=== PATIENT | female | born 1990 | race Caucasian/White ===

== ENCOUNTER → 2017-12-08 15:55 | Outpatient (CLI) | payer BC, SELFPAY ==
[2017-12-08 19:04] LABS: Chlamydia Trachomatis by PCR Negative (Negative); Neisserai gonorrhoeae by PCR Negative (Negative); Probe Check PASS; Sample Adequacy Control PASS; Specimen Processing Control PASS
[2017-12-14 09:27] LABS: HPV Reflexed? NOT INDICATED
== END ==
PROVIDERS: Visit Provider Obstetrics & Gynecology
DX: Z12.4 Encounter for screening for malignant neoplasm of cervix (principal); Z11.3 Encounter for screening for infections with a predominantly sexual mode of transmission
CPT/HCPCS: 86850; 86900; 87491; 87591; 88175; G0145

== ENCOUNTER → 2017-12-21 15:05 | Outpatient (CLI) | payer BC, SELFPAY ==
--- NOTE | 2017-12-21 15:05 | DT_ITS ---
This patient was seen during an EMR downtime December 18, 2017 - December 25, 2017. This patient may have a combination of paper and electronic documentation or all paper documentation. All documentation is viewable within the e-chart portion of [facility] for each patient visit.
[2017-12-24 13:31] LABS: Prenatal RPR NONREACTIVE (NONREACTIVE)
[2017-12-25 11:37] LABS: HIV - WCH Non-Reactive (Nonreactive); Rubella IgG 7.5 IU/mL
[2017-12-26 04:10] LABS: Hematocrit 35.3 % (37-47); Hemoglobin 11.7 g/dl (12.0-15.0); Mean Corp Hgb Conc 33.1 g/gl (32-36); Mean Corpuscular Hgb 30.6 pg (27.0-32.0); Mean Corpuscular Volume 92.4 fL (81-99); Red Blood Count 3.82 M/mm3 (4.2-5.4)
[2017-12-26 04:11] LABS: Mean Platelet Vol. 10.5 fl (6.2-12.0); POSITIVE COUNT NO; POSITIVE DIFFERENTIAL NO; POSITIVE MORPHOLOGY NO; Platelet Count 229 K/mm3 (150-450); RBC Distribution Width SD 44.3 fl (35.1-43.9)
[2017-12-26 04:14] LABS: White Blood Count 8.6 K/mm3 (4.4-11.0)
[2017-12-26 04:22] LABS: Color, Urine Yellow (Yellow); Glucose, Dipstick Normal (Normal); Urine Clarity Clear (Clear)
[2017-12-26 04:23] LABS: Ketone-Dipstick Negative (Negative); Leukocyte Esterase-Dipstick 500 /ul (Negative); Nitrite-Dipstick Negative (Negative); Occult Blood-Urine Negative /ul (Negative); Protein-Dipstick Negative (Negative); Urine Bilirubin Dipstick Negative (Negative); Urine Urobilinogen Normal (Normal)
[2017-12-26 05:56] LABS: Thyroid Stim Hormone (TSH) 1.45 uIU/mL (0.358-3.74)
[2017-12-26 06:28] LABS: Amphetamine Urine VISTA NEGATIVE (<1000 ng/mL); Barbiturate Urine VISTA NEGATIVE (< 200 ng/mL); Benzodiazepine Urine VISTA NEGATIVE (< 200 ng/mL); COTININE Drug Screen Negative (<200 ng/mL); Cocaine Urine VISTA NEGATIVE (< 300 ng/mL); Ecstacy Urine VISTA NEGATIVE (< 500 ng/mL); Methadone Urine VISTA NEGATIVE (< 300 ng/mL); PCP Urine VISTA NEGATIVE (< 25 ng/mL); THC Urine VISTA NEGATIVE (< 50 ng/mL)
[2017-12-30 14:20] LABS: HEPATITIS B SURFACE AG Negative (Negative); Hep C Antibodies <0.1 s/co ratio (0.0-0.9)
== END ==
PROVIDERS: Visit Provider Obstetrics & Gynecology
DX: Z34.81 Encounter for supervision of other normal pregnancy, first trimester (principal)
CPT/HCPCS: 36415; 80307; 81002; 84443; 85025; 86703; 86762; 86803; 87340

== ENCOUNTER → 2018-05-01 13:53 | Outpatient (CLI) | payer BC, SELFPAY ==
[2018-05-01 15:39] LABS: Glucose Challenge Gest 1H 50g 110 mg/dL (70-140)
[2018-05-01 15:49] LABS: Hematocrit 28.7 % (37-47); Hemoglobin 9.3 g/dl (12.0-15.0); Mean Corp Hgb Conc 32.4 g/gl (32-36); Mean Corpuscular Hgb 30.6 pg (27.0-32.0); Mean Corpuscular Volume 94.4 fL (81-99); Mean Platelet Vol. 9.9 fl (6.2-12.0); Platelet Count 243 K/mm3 (150-450); RBC Distribution Width CV 12.5 % (11.6-14.6); RBC Distribution Width SD 41.2 fl (35.1-43.9); Red Blood Count 3.04 M/mm3 (4.2-5.4); Scan Indicated on CBC? Y/N NO; White Blood Count 9.2 K/mm3 (4.4-11.0)
== END ==
PROVIDERS: Visit Provider Obstetrics & Gynecology
DX: O30.042 Twin pregnancy, dichorionic/diamniotic, second trimester (principal); Z3A.00 Weeks of gestation of pregnancy not specified
CPT/HCPCS: 36415; 82950; 85027

== ENCOUNTER 2018-05-15 13:13 | Emergency (ER) | payer BC, SELFPAY ==
[2018-05-15 13:22] VITALS: BP 106/64; PULSE 107; RESP 16; TEMP 36; O2SAT 96; BMI 31.7
[2018-05-15] MEDS: Ondansetron 4 MG/2 ML Vial IV (13:58)
[2018-05-15] MEDS: 0.9% Normal Saline 1,000 ML 1000 ML IV (13:58)
[2018-05-15 14:19] LABS: Mucous, Urine 0 SEEN /hpf (<or=2+); Red Blood Cells-Urine 0 SEEN /hpf (0-5)
[2018-05-15 14:27] LABS: Color, Urine Yellow (Yellow); Glucose, Dipstick Normal (Normal); Ketone-Dipstick 50 mg/dl (Negative); Leukocyte Esterase-Dipstick 500 /ul (Negative); Nitrite-Dipstick Negative (Negative); Occult Blood-Urine Negative /ul (Negative); Protein-Dipstick 15 mg/dl (Negative); Specific Gravity, Urine 1.015 (1.002-1.030); Urine Bilirubin Dipstick Negative (Negative); Urine Clarity Sl. Cloudy (Clear); Urine Urobilinogen 1 mg/dl (Normal)
[2018-05-15 14:35] LABS: Bacteria 1+ /hpf (None Seen); Squamous Epithelial Cells - UA 0-5 SEEN /hpf (5-10); White Blood Cells 25-50 SEEN /hpf (0-5)
[2018-05-15] MEDS: Ceftriaxone 1 GM/50 ML BAG IV (15:24)
--- NOTE | 2018-05-15 16:04 | ED.VISSUMM ---
- ER Visit Summary Date of Service: 05/15/18 Chief Complaint: Nausea and vomiting History of Present Illness: The patient is a 28 F who is 29 weeks gestation first sent to the ER for nausea and vomiting started yesterday. She is vomited 5 times. Any attempt at eating or drinking anything results in emesis. She does complain of thirst and dry mouth. She denies orthostatic symptoms. She states she is still urinating. She denies dysuria, frequency, urgency or hematuria. She denies fever, chills or night sweats. She states she has not had problems with hyperemesis during the . She denies vaginal discharge or vaginal bleeding. Physical Examination: Vital signs noted and remarkable for heart rate of 107. HEENT exam is remarkable dry mucosa. Heart is rapid and regular without murmur, gallop or rub. Lungs are clear to auscultation with good movement of air bilaterally. Abdomen is remarkable for gravid uterus with positive heart tone and movement. There is no CVA tenderness noted. The remainder of exam is unremarkable. Test Results: UA is remarkable for pyuria with bacteria. Urine culture was sent. Urine was also positive for ketones. Emergency Department Course and Treatment: IV was established she received 1 L of normal saline wide open and 4 mg of Zofran. She has passed p.o. challenge. Urine culture was sent and she received 1 g of Rocephin. She was discharged with cephalexin 500 mg to treat her cystitis. Her sifter operator/beck tender Dr. Agustin Cole was paged to inform him of patient's urine results and need to follow-up urine culture. Treatment Plan: Treat cystitis and hyperemesis with cephalexin and Zofran ODT Disposition: Discharged to home in stable and improved condition Impression: 1. Hyperemesis gravidarum 2. Ketosis 3. Cystitis This note was generated with [employer] dictation software. It may contain incorrect words, spelling, and punctuation that were not noted in review of the chart prior to signing ED Disposition - Plan for ED Patient: Disposition: Home or Assisted Living Chief Complaint: Nausea/Vomiting Instructions: Severe Morning Sickness (Hyperemesis Gravidarum), ED UTI Cystitis Female Prescriptions: Ondansetron [Zofran Odt] 4 mg PO Q8H PRN PRN #10 tab PRN Reason: Nausea Cephalexin 500 mg PO 4X/DAY #28 cap Referrals: Care Physician,No Primary [Primary Care Provider] - Agustin Cole MD [STAFF PHYSICIAN] - 3-5 Days
[2018-05-15 16:09] VITALS: BP 114/64; PULSE 74; RESP 16; O2SAT 98
--- NOTE | 2018-05-15 16:09 | ED.DCSUM_ITS ---
- ER Visit Summary Date of Service: 05/15/18 Chief Complaint: Nausea and vomiting History of Present Illness: The patient is a 28 F who is 29 weeks gestation first sent to the ER for nausea and vomiting started yesterday. She is vomited 5 times. Any attempt at eating or drinking anything results in emesis. She does complain of thirst and dry mouth. She denies orthostatic symptoms. She states she is still urinating. She denies dysuria, frequency, urgency or hematuria. She denies fever, chills or night sweats. She states she has not had problems with hyperemesis during the . She denies vaginal discharge or vaginal bleeding. Physical Examination: Vital signs noted and remarkable for heart rate of 107. HEENT exam is remarkable dry mucosa. Heart is rapid and regular without murmur, gallop or rub. Lungs are clear to auscultation with good movement of air bilaterally. Abdomen is remarkable for gravid uterus with positive heart tone and movement. There is no CVA tenderness noted. The remainder of exam is unremarkable. Test Results: UA is remarkable for pyuria with bacteria. Urine culture was sent. Urine was also positive for ketones. Emergency Department Course and Treatment: IV was established she received 1 L of normal saline wide open and 4 mg of Zofran. She has passed p.o. challenge. Urine culture was sent and she received 1 g of Rocephin. She was discharged with cephalexin 500 mg to treat her cystitis. Her auto haulaway driver/word processor Dr. Agustin Cole was paged to inform him of patient's urine results and need to follow-up urine culture. Treatment Plan: Treat cystitis and hyperemesis with cephalexin and Zofran ODT Disposition: Discharged to home in stable and improved condition Impression: 1. Hyperemesis gravidarum 2. Ketosis 3. Cystitis This note was generated with [employer] dictation software. It may contain incorrect words, spelling, and punctuation that were not noted in review of the chart prior to signing ED Disposition - Plan for ED Patient: Disposition: Home or Assisted Living Chief Complaint: Nausea/Vomiting Instructions: Severe Morning Sickness (Hyperemesis Gravidarum), ED UTI Cystitis Female Prescriptions: Ondansetron [Zofran Odt] 4 mg PO Q8H PRN PRN #10 tab PRN Reason: Nausea Cephalexin 500 mg PO 4X/DAY #28 cap Referrals: Care Physician,No Primary [Primary Care Provider] - Agustin Cole MD [STAFF PHYSICIAN] - 3-5 Days
[2018-05-15 16:15] VITALS: BP 112/64; PULSE 74; RESP 16; O2SAT 98
== END 2018-05-15 16:17 | disposition home or self-care (01) ==
PROVIDERS: Emergency Provider Emergency Medicine
DX: O21.1 Hyperemesis gravidarum with metabolic disturbance (principal); O23.13 Infections of bladder in pregnancy, third trimester; Z3A.29 29 weeks gestation of pregnancy
CPT/HCPCS: 81001; 87086; 87088; 96361; 96365; 96374; 99283; J7030; A4216; J2405

== ENCOUNTER 2018-06-06 09:00 | Outpatient (CLI) | payer BC, SELFPAY ==
[2018-06-06 09:47] VITALS: BMI 32.3
--- NOTE | 2018-06-06 17:48 | OB.TRI.NOTE ---
History of Present Illness Date of Service: 06/06/18 Was patient seen by the physician?: Yes Reason For Visit: NST Date of Service: 06/06/18 Final CHEN: 07/30/18 Final CHEN Source: US <20 weeks Gestational age: 32 Weeks and 2 Days History of Present Illness: Twins for scheduled NST for well being Allergies No Known Allergies Allergy (Verified 05/15/18 13:23) Physical Exam General: Alert, Oriented x3, Cooperative, No apparent distress Cardiovascular: Regular rate, Regular Rhythm Lungs: Clear to auscultation, Normal air movement Abdomen: Soft, Non Tender, Non-Distended, Gravid, Appropriate for Gestational Age Extremities:: No edema Neurological: Neuro grossly intact REGIONAL ACCOUNT DIRECTOR: Normal external genitalia Estimated gestational size: Appropriate for gestational size Presentation: Cephalic NST - FHR Rate Baby A Baseline: 120 Variability:: Moderate Accelerations:: 15 x 15 Decelerations:: None NST Reactive:: Yes, Appropriate for gestational age FHR Category:: Category I Uterine Activity:: irregular - FHR Rate Baby B Baseline: 120 Variability:: Moderate Accelerations:: 15 x 15 Decelerations:: None NST Reactive:: Yes, Appropriate for gestational age FHR Category:: Category I Impression/Plan Reassuring twin NST.
--- NOTE | 2018-06-06 17:51 | OB.TRI.HP_ITS ---
History of Present Illness Date of Service: 06/06/18 Was patient seen by the physician?: Yes Reason For Visit: NST Date of Service: 06/06/18 Final CHEN: 07/30/18 Final CHEN Source: US <20 weeks Gestational age: 32 Weeks and 2 Days History of Present Illness: Twins for scheduled NST for well being Allergies No Known Allergies Allergy (Verified 05/15/18 13:23) Physical Exam General: Alert, Oriented x3, Cooperative, No apparent distress Cardiovascular: Regular rate, Regular Rhythm Lungs: Clear to auscultation, Normal air movement Abdomen: Soft, Non Tender, Non-Distended, Gravid, Appropriate for Gestational Age Extremities:: No edema Neurological: Neuro grossly intact SUPERVISOR WATER SOFTENER SERVICE: Normal external genitalia Estimated gestational size: Appropriate for gestational size Presentation: Cephalic NST - FHR Rate Baby A Baseline: 120 Variability:: Moderate Accelerations:: 15 x 15 Decelerations:: None NST Reactive:: Yes, Appropriate for gestational age FHR Category:: Category I Uterine Activity:: irregular - FHR Rate Baby B Baseline: 120 Variability:: Moderate Accelerations:: 15 x 15 Decelerations:: None NST Reactive:: Yes, Appropriate for gestational age FHR Category:: Category I Impression/Plan Reassuring twin NST.
== END 2018-06-06 10:20 | disposition home or self-care (01) ==
LOC: WPOUT 09:02 → WP 09:03
PROVIDERS: Referring Provider Obstetrics & Gynecology; Visit Provider Obstetrics & Gynecology
DX: O30.003 Twin pregnancy, unspecified number of placenta and unspecified number of amniotic sacs, third trimester (principal); Z3A.32 32 weeks gestation of pregnancy
CPT/HCPCS: 59025; 59050; 99218; G0378

== ENCOUNTER 2018-06-09 10:00 | Outpatient (CLI) | payer BC, SELFPAY ==
[2018-06-09 10:28] VITALS: BMI 32.5
--- NOTE | 2018-06-09 14:26 | OB.TRI.NOTE ---
History of Present Illness Date of Service: 06/09/18 Was patient seen by the physician?: No Reason For Visit: NST Date of Service: 06/09/18 Final CHEN: 07/30/18 Final CHEN Source: US <20 weeks Gestational age: 32 Weeks and 5 Days History of Present Illness: Twin gestation uncomplicated. Appt for scheduled NST Allergies No Known Allergies Allergy (Verified 05/15/18 13:23) Physical Exam General: Alert, Oriented x3, Cooperative, No apparent distress Cardiovascular: Regular rate, Regular Rhythm Lungs: Clear to auscultation, Normal air movement Abdomen: Soft, Non Tender, Non-Distended, Gravid, - - LGA/twins Extremities:: No edema Estimated gestational size: Large for gestational age - twin gestation NST - FHR Rate Baby A Baseline: 130s Variability:: Moderate Accelerations:: 15 x 15 Decelerations:: None NST Reactive:: Yes, Appropriate for gestational age FHR Category:: Category I Uterine Activity:: none - FHR Rate Baby B Baseline: 130s Variability:: Moderate Accelerations:: 15 x 15 Decelerations:: None NST Reactive:: Yes, Appropriate for gestational age FHR Category:: Category I Uterine Activity:: none Impression/Plan Reassuring twin NST at 32w5d ega.
== END 2018-06-09 11:05 | disposition home or self-care (01) ==
LOC: WPOUT 10:02 → WP 10:03
PROVIDERS: Referring Provider Obstetrics & Gynecology; Visit Provider Obstetrics & Gynecology
DX: O30.003 Twin pregnancy, unspecified number of placenta and unspecified number of amniotic sacs, third trimester (principal); O36.63X0 Maternal care for excessive fetal growth, third trimester, not applicable or unspecified; Z3A.32 32 weeks gestation of pregnancy
CPT/HCPCS: 59025; 59050; 99218; G0378

== ENCOUNTER 2018-06-13 17:20 | Outpatient (CLI) | payer BC, SELFPAY ==
[2018-06-13 17:47] VITALS: BMI 33.7
--- NOTE | 2018-06-14 07:22 | OB.TRI.NOTE ---
History of Present Illness Date of Service: 06/13/18 Was patient seen by the physician?: No Reason For Visit: NST Date of Service: 06/13/18 Final CHEN: 07/30/18 Final CHEN Source: US <20 weeks Gestational age: 33 Weeks and 3 Days History of Present Illness: Uncomplicated twin for scheduled NST Allergies No Known Allergies Allergy (Verified 05/15/18 13:23) Physical Exam General: Alert, Oriented x3, Cooperative, No apparent distress Cardiovascular: Regular rate, Regular Rhythm Lungs: Clear to auscultation, Normal air movement Abdomen: Soft, Non Tender, Non-Distended, Gravid, - - LGA secondary to twin gestation Extremities:: No edema Neurological: Neuro grossly intact Estimated gestational size: Large for gestational age Presentation: Unable to assess NST - FHR Rate Baby A Baseline: 130s Variability:: Moderate Accelerations:: 15 x 15 Decelerations:: None NST Reactive:: Yes, Appropriate for gestational age FHR Category:: Category I Uterine Activity:: rare - FHR Rate Baby B Baseline: 140s Variability:: Moderate Accelerations:: 15 x 15 Decelerations:: None, Early NST Reactive:: Yes, Appropriate for gestational age FHR Category:: Category I Uterine Activity:: rare Impression/Plan Reassuring twin NST at 33 weeks.
--- OUTSIDE RECORDS SUMMARY | 2018-08-09 03:18 | XMS RPT_ITS ---
:1990 Author Organization OHIP Support Name Relationship Address Phone JULIO C GALVEZ Unavailable [address] + [place] [address] [facility] Unavailable [address] + [place] [address] [facility] Unavailable [address] + [place] [address] [facility] Unavailable [address] + [place] [address] [facility] Unavailable [address] + [place] [address] [facility] Unavailable [address] + [place] [address] [facility] Unavailable [address] + [place] [address] [facility] Unavailable [address] + [place] [address] [facility] Unavailable [address] + [place] [address] [facility] Unavailable [address] + [place] [address] [facility] Unavailable [address] + [place] [address] [facility] Unavailable [address] + [place] [address] [facility] Unavailable [address] + [place] [address] [facility] Unavailable [address] + [place] [address] [facility] Unavailable [address] + [place] [address] [facility] Unavailable [address] + [place] [address] [facility] Unavailable [address] + [place] [address] [facility] Unavailable [address] + [place] [address] JULIO C GALVEZ Unavailable [address] + [place] [address] [facility] Unavailable [facility] + [place] [id number] [place]. [place] Care Team Providers Name Role Phone Kenroy Yo Sanchez Attending Unavailable Seals, Agustin Attending Unavailable Seals, Agustin Referring Unavailable Primay Care Physicia, No Primary Care Unavailable Seals, Agustin Attending Unavailable Seals, Agustin Referring Unavailable Primay Care Physicia, No Primary Care Unavailable Seals, Agustin Attending Unavailable Seals, Agustin Attending Unavailable Seals, Agustin Attending Unavailable Denney, Oyshi Attending Unavailable Primay Care Physicia, No Primary Care Unavailable Seals, Agustin Attending Unavailable Seals, Agustin Referring Unavailable Primay Care Physicia, No Primary Care Unavailable Seals, Agustin Attending Unavailable Seals, Agustin Referring Unavailable Primay Care Physicia, No Primary Care Unavailable Seals, Agustin Attending Unavailable Seals, Agustin Referring Unavailable Primay Care Physicia, No Primary Care Unavailable Benekos, Tran Attending Unavailable Benekos, Tran Referring Unavailable Primay Care Physicia, No Primary Care Unavailable Seals, Agustin Attending Unavailable Seals, Agustin Referring Unavailable Primay Care Physicia, No Primary Care Unavailable Seals, Agustin Attending Unavailable Primay Care Physicia, No Primary Care Unavailable Weeman, Allan Attending Unavailable Weeman, Allan Referring Unavailable Primay Care Physicia, No Primary Care Unavailable PROBLEMS PROBLEMS DATE TYPE CONDITION / CODE ATTENDING STATUS SOURCE 06/20/2018 Unknown Z36.85 - Encounter SealAgusitn dumas Active [place] [facility] screening for [facility] Streptococcus B / Repository Z36.85(ICD-10) 07/02/2018 Unknown O30.003 - Twin Sealpiter, Agustin Active [place] , Community unspecified number Hospital of placenta and Repository unspecified number of amniotic sacs, third trimester / O30.003(ICD-10) 05/01/2018 Unknown O30.042 - Twin Seals, Agustin Active [facility] , Community dichorionic/diamnio Hospital tic, second Repository trimester / O30.042(ICD-10) 12/08/2017 Unknown Z12.4 - Encounter Seals, Agustin Active [place] [facility] malignant neoplasm Hospital of cervix / Repository Z12.4(ICD-10) 12/08/2017 Unknown Z11.3 - Encounter Agustin Cole Active [facility] for Community infections with a Hospital predominantly Repository sexual mode of transmission / Z11.3(ICD-10) PROCEDURES PROCEDURES No Procedure Records FoundRESULTS RESULTS Observed: 06/20/2018 Status: F Source: [facility] CULTURE, GROUP B 3:30 PM [facility] STREPTOCOCCUS REPOSITORY Comments: VAGINAL/RECTAL CAROL Culture Group B Beta Streptococcus is not isolated. Performed By: #### M100.1800 #### [facility] [address] [facility] [place], [address] EMERGENCY DEPARTMENT Observed: 05/15/2018 Status: F Source: [facility] SUMMARY 4:09 PM [facility] REPOSITORY [facility] Medical Records Department [address] [facility] [place] [address] Emergency Department Summary 05/15/18 1604 MR#: [id number] Acct: [id number] Name: KEYON GALVEZ Rep #: [id number] : 1990 28 From: Yoshi Denney MD PCP: Care Physician, No Primary Status: REG ER - ER Visit Summary Date of Service: 05/15/18 Chief Complaint: Nausea and vomiting History of Present Illness: The patient is a 28 F who is 29 weeks gestation first sent to the ER for nausea and vomiting started yesterday. She is vomited 5 times. Any attempt at eating or drinking anything results in emesis. She does complain of thirst and dry mouth. She denies orthostatic symptoms. She states she is still urinating. She denies dysuria, frequency, urgency or hematuria. She denies fever, chills or night sweats. She states she has not had problems with hyperemesis during the . She denies vaginal discharge or vaginal bleeding. Physical Examination: Vital signs noted and remarkable for heart rate of 107. HEENT exam is remarkable dry mucosa. Heart is rapid and regular without murmur, gallop or rub. Lungs are clear to auscultation with good movement of air bilaterally. Abdomen is remarkable for gravid uterus with positive heart tone and movement. There is no CVA tenderness noted. The remainder of exam is unremarkable. Test Results: UA is remarkable for pyuria with bacteria. Urine culture was sent. Urine was also positive for ketones. Emergency Department Course and Treatment: IV was established she received 1 L of normal saline wide open and 4 mg of Zofran. She has passed p.o. challenge. Urine culture was sent and she received 1 g of Rocephin. She was discharged with cephalexin 500 mg to treat her cystitis. Her rescue boat operator/energy audit advisor Dr. Agustin Cole was paged to inform him of patient's urine results and need to follow-up urine culture. Treatment Plan: Treat cystitis and hyperemesis with cephalexin and Zofran ODT Disposition: Discharged to home in stable and improved condition Impression: 1. Hyperemesis gravidarum 2. Ketosis 3. Cystitis This note was generated with [employer] dictation software. It may contain incorrect words, spelling, and punctuation that were not noted in review of the chart prior to signing ED Disposition - Plan for ED Patient: Disposition: Home or Assisted Living Chief Complaint: Nausea/Vomiting Instructions: Severe Morning Sickness (Hyperemesis Gravidarum), ED UTI Cystitis Female Prescriptions: Ondansetron [Zofran Odt] 4 mg PO Q8H PRN PRN #10 tab PRN Reason: Nausea Cephalexin 500 mg PO 4X/DAY #28 cap Referrals: Care Physician,No Primary [Primary Care Provider] - Agustin Cole MD [STAFF PHYSICIAN] - 3-5 Days What to do if you have Problems For any increased pain, shortness of breath, bleeding, nausea or vomiting, chest pain, or any unexpected problems, contact your Primary Care Provider. Call [facility] ([phone]) or report to the closest Emergency Room. Call 911 if necessary. 05/15/18 5536 <Electronically signed by Yoshi Denney MD> Date Yoshi Denney MD Cosigner Signature (If Indicated): Date CC: No Primary Care Physician; Agustin Cole MD URINALYSIS, COMPLETE Collected: 05/15/2018 Status: F Source: [facility] 2:10 PM [facility] REPOSITORY Order Comment: Order Date: 05/15/18 How was Urine Obtained? CLEAN CATCH TYPE CODE TESTS RESULT OUT OF RANGE REFERENCE UNITS LAB L400.3000 Yellow COLOR Normal Yellow LAB L400.3050 Clear Normal CLARITY Sl. Cloudy LAB L400.3200 Normal mg/dl Normal GLUCOSE, UR Normal LAB L400.3300 Negative mg/dL Normal BILIRUBIN URINE Negative LAB L400.3400 Negative mg/dl High 50 KETONE UR LAB L400.3465 1.002-1.030 Normal SP.GR. DIPSTX 1.015 LAB L400.3550 5.0 - 8.0 pH UR Normal 6.0 LAB L400.3600 Negative mg/dl High PROT 15 DIPSTX LAB L400.3700 Normal mg/dl High 1 UROBILI LAB L400.3750 Negative Normal NITRITE UR Negative LAB L400.3780 Negative /ul Normal OCCULT BLOOD-UR Negative LAB L400.3800 Negative /ul High LEUK ESTERASE 500 LAB L400.4050 0-5 /hpf WBC Normal 25-50 SEEN LAB L400.4100 0-5 /hpf 0 Normal RBC-UA SEEN LAB L400.4150 5-10 /hpf SQUAM Normal EPI 0-5 SEEN LAB L400.4300 None Seen /hpf 1+ Normal BACTERIA LAB L400.4350 <or=2+ /hpf 0 Normal MUCUS, URINE SEEN Performed By: #### L400.0001 #### [facility] [address] [facility] [place], [place], [address] Observed: 05/15/2018 Status: F Source: [facility] CULTURE, URINE 2:10 PM [facility] REPOSITORY Urine Culture Below infection level. ORGANISM 1: Mixed Gram Positive Organisms [place] Count 1000-10,000 Performed By: #### M100.0650 #### [facility] [address] [facility] [place], [address] GLUCOSE CHALLENGE GEST Collected: 05/01/2018 Status: F Source: [facility] 1H 50G 2:03 PM [facility] REPOSITORY TYPE CODE TESTS RESULT OUT OF RANGE REFERENCE UNITS LAB L501.0250 70-140 mg/dL Normal GLU GEST 110 50g 1H Performed By: #### L501.0250 #### [facility] [address] [place], [address] CBC-COMPLETE BLOOD CNT Collected: 05/01/2018 Status: F Source: [facility] NO DIFF 2:03 PM [facility] REPOSITORY TYPE CODE TESTS RESULT OUT OF RANGE REFERENCE UNITS LAB L100.1000 4.4-11.0 K/mm3 Normal WBC 9.2 LAB L100.1200 4.2-5.4 M/mm3 Low RBC 3.04 LAB L100.1300 12.0-15.0 g/dl Low HGB 9.3 LAB L100.1400 37-47 % Low HCT 28.7 LAB L100.1500 81-99 fL Normal MCV 94.4 LAB L100.1600 27.0-32.0 pg Normal MCH 30.6 LAB L100.1700 32-36 g/gl Normal MCHC 32.4 LAB L100.1810 11.6-14.6 % Normal RDW CV 12.5 LAB L100.1820 35.1-43.9 fl Normal RDW SD 41.2 LAB L100.1900 150-450 K/mm3 Normal PLT 243 LAB L100.2000 6.2-12.0 fl Normal MPV 9.9 Performed By: #### L100.0500 #### [facility] [address] [place], [address] DOWNTIME REPORT Observed: 01/04/2018 Status: F Source: [place] 2:01 PM [facility] REPOSITORY [facility] Medical Records Department [address] [place] [address] Downtime Report MR#: [id number] Acct: [id number] Name: KEYON GALVEZ Rep #: [id number] : 1990 27 From: Hung Barclay PCP: Status: REG CLI This patient was seen during an EMR downtime December 18, 2017 - December 25, 2017. This patient may have a combination of paper and electronic documentation or all paper documentation. All documentation is viewable within the e-chart portion of [employer] for each patient visit. T AND S-NO Collected: 12/21/2017 Status: F Source: [facility] CHARGE W/PNP 3:05 PM [facility] REPOSITORY Order Comment: RESULT(S) PREVIOUSLY REPORTED ON MANUAL REQUISITION DURING DOWNTIME. Reason for Type AND Screen/Red Cells: Surgery? N TYPE CODE TESTS RESULT OUT OF RANGE REFERENCE UNITS LAB B10.0800 O Normal BLOOD POSITIVE TYPE GEL LAB B100.4050 Normal Ab SCREEN NEGATIVE GEL Performed By: #### B100.7550 #### [facility] [address] [facility] [place], [place], [address] URINE DRUG SCREEN Collected: 12/21/2017 Status: P Source: SHREE (VISTA) 3:05 PM [facility] REPOSITORY Order Comment: List of Drugs Taken or Suspected? UNK TYPE CODE TESTS RESULT OUT OF RANGE REFERENCE UNITS LAB L505.0075 TO BE Normal CONFIRMED Result Comment: CONFIRMATORY TESTING FOR ALL POSITIVE URINE DRUG SCREEN RESULTS WILL ONLY BE SENT OUT UPON PHYSICIAN ORDER. VISTA Urine Drug Screen methods provide only preliminary analytical test results. A more specific alternate chemical method must be used in order to obtain a confirmed analytical result. Gas chromatography/mass spectrometery (GC/MS) is the preferred confirmatory method. Clinical consideration and professional judgement should be applied to any drug of abuse test result, particularly when preliminary positive results are used. URINE TCA TESTING MUST BE ORDERED SEPARATELY. USE TEST MNEMONIC: UTCA Performed By: #### L505.5000, L505.6240 #### [facility] [address] [facility] [place], [place], [address] NICOTINE URINE DRUG Collected: 12/21/2017 Status: P Source: [facility] SCREEN 3:05 PM [facility] REPOSITORY Order Comment: List of Drugs Taken or Suspected? UNK TYPE CODE TESTS RESULT OUT OF RANGE REFERENCE UNITS LAB L505.6250 TO BE Normal CONFIRMED Result Comment: CONFIRMATORY TESTING FOR ALL POSITIVE URINE DRUG SCREEN RESULTS WILL ONLY BE SENT OUT UPON PHYSICIAN ORDER. The results of Urine Drug Screen methods provide only preliminary analytical test results. A more specific alternate chemical method must be used in order to obtain a confirmed analytical result. Gas chromatography/mass spectrometery (GC/MS) is the preferred confirmatory method. Clinical consideration and professional judgement should be applied to any drug of abuse test result, particularly when preliminary positive results are used. LAB L505.6270 <200 ng/mL Normal COT DRG SCREEN Result Comment: Cotinine is the first-stage metabolite of Nicotine. Performed By: #### L505.5000, L505.6240 #### [facility] [address] [facility] [place], [place], [id number] RPR Collected: 12/21/2017 Status: F Source: [place] 3:05 PM [facility] REPOSITORY TYPE CODE TESTS RESULT OUT OF REFERENCE UNITS RANGE LAB L700.5100 NONREACTIVE Normal RPR NONREACTIVE Performed By: #### L700.5100 #### [facility] [facility] [address] [place], [address] RUBELLA IGG Collected: 12/21/2017 Status: F Source: [place] 3:05 PM [facility] REPOSITORY TYPE CODE TESTS RESULT OUT OF RANGE REFERENCE UNITS LAB L509.4000 IU/mL Normal Rubella IgG 7.5 Result Comment: Antibody results Interpretation of Immune Status < 5 IU/ml Presumed Non-immune 5 - < 10 IU/ml Equivocal > or = 10 IU/ml Presumed Immune Performed By: #### L509.4000, L3890.6005 #### [facility] [facility] [place], [address] HIV - [facility] Collected: 12/21/2017 Status: F Source: [place] 3:05 [facility] REPOSITORY TYPE CODE TESTS RESULT OUT OF RANGE REFERENCE UNITS LAB L3890.6005 Nonreactive Normal HIV - [facility] Non-Reactive Performed By: #### L509.4000, L3890.6005 #### [facility] [facility] [place], [address] CBC W/DIFF, AUTOMATED Collected: 12/21/2017 Status: F Source: [place] 3:05 PM [facility] REPOSITORY TYPE CODE TESTS RESULT OUT OF RANGE REFERENCE UNITS LAB L100.1000 4.4-11.0 K/mm3 Normal WBC 8.6 Result Comment: RESULT(S) PREVIOUSLY REPORTED ON MANUAL REQUISITION DURING DOWNTIME. 0415 RESULTING TECH MAF LAB L100.1200 4.2-5.4 M/mm3 Low RBC 3.82 LAB L100.1300 12.0-15.0 g/dl Low HGB 11.7 LAB L100.1400 37-47 % Low HCT 35.3 LAB L100.1500 81-99 fL Normal MCV 92.4 LAB L100.1600 27.0-32.0 pg Normal MCH 30.6 LAB L100.1700 32-36 g/gl Normal MCHC 33.1 LAB L100.1810 11.6-14.6 % Normal RDW CV 13.0 LAB L100.1820 35.1-43.9 fl High RDW SD 44.3 LAB L100.1900 150-450 K/mm3 Normal PLT 229 LAB L100.2000 6.2-12.0 fl Normal MPV 10.5 LAB L100.2100 47-70 % Normal NEUT% Test not performed LAB L100.2200 19-41 % Normal LY% Test not performed LAB L100.2300 0-10 % Normal MONO% Test not performed LAB L100.2400 0-5 % Normal EO% Test not performed LAB L100.2500 0-1 % Normal BASO% Test not performed LAB L100.2550 0.0-0.9 % IM Normal GRAN % Test not performed LAB L100.2620 2.0-7.7 X10 3/uL Normal Absolute Neut Test not performed LAB L100.2720 0.83-4.51 X10 3/ul Normal Absolute Lymph Test not performed LAB L100.3100 MANUAL DIFF Normal CELLS COUNTED Test not performed LAB L100.3200 47-70 % Normal SEGS Test not performed LAB L100.3300 0-5 % Normal BAND Test not performed LAB L100.3400 0-1 % Normal META Test not performed LAB L100.3500 0-0 Normal MYELO Test not performed LAB L100.3600 0-0 Normal PROMYELO Test not performed LAB L100.3700 0-0 % Normal BLAST Test not performed LAB L100.3800 19-41 % Normal LYMPH Test not performed LAB L100.3900 0-10 % Normal MONOCYTE Test not performed LAB L100.4000 0-5 % Normal EOS Test not performed LAB L100.4100 0-1 % Normal BASOPHIL Test not performed LAB L100.4200 % Normal PLASMA CELL Test not performed LAB L100.4300 % Normal OTHER WBC TYPE Test not performed LAB L100.4400 0-5 % Normal NRBC,MANUAL CT Test not performed LAB L100.4500 Normal SMEAR COMMENT Test not performed LAB L100.4600 % Normal ATYPICAL LYMPH Test not performed LAB L100.4700 Normal REACTIVE LYMPH Test not performed Performed By: #### L100.0100 #### [facility] [address] [facility] [place], [address] URINALYSIS, ROUTINE Collected: 12/21/2017 Status: F Source: [facility] (DIPSTICK) 3:05 PM [facility] REPOSITORY Order Comment: How was Urine Obtained? CLEAN CATCH TYPE CODE TESTS RESULT OUT OF RANGE REFERENCE UNITS LAB L400.3000 Yellow COLOR Normal Yellow LAB L400.3050 Clear Normal CLARITY Clear LAB L400.3200 Normal mg/dl Normal GLUCOSE, UR Normal LAB L400.3300 Negative mg/dL Normal BILIRUBIN URINE Negative LAB L400.3400 Negative mg/dl Normal KETONE UR Negative LAB L400.3465 1.002-1.030 Normal SP.GR. DIPSTX 1.010 LAB L400.3550 5.0 - 8.0 pH UR Normal 7.0 LAB L400.3600 Negative mg/dl PROT Normal DIPSTX Negative LAB L400.3700 Normal mg/dl Normal UROBILI Normal LAB L400.3750 Negative Normal NITRITE UR Negative LAB L400.3780 Negative /ul Normal OCCULT BLOOD-UR Negative LAB L400.3800 Negative /ul High LEUK ESTERASE 500 Performed By: #### L400.2011 #### [facility] [address] [place], [place], [id number] THYROID STIM HORMONE Collected: 12/21/2017 Status: F Source: [facility] (TSH) 3:05 PM [facility] REPOSITORY Order Comment: RESULT(S) PREVIOUSLY REPORTED ON MANUAL REQUISITION DURING DOWNTIME. TYPE CODE TESTS RESULT OUT OF RANGE REFERENCE UNITS LAB L501.9520 0.358-3.74 uIU/mL Normal TSH 1.45 Performed By: #### L501.9520 #### [facility] [place], [place], [address] HEPATITIS B SURFACE Collected: 12/21/2017 Status: F Source: [place] AG 3:05 PM [facility] REPOSITORY Order Comment: Specimen Comment: A duplicate report has been generated due to demographic Specimen Comment: updates. TYPE CODE TESTS RESULT OUT OF RANGE REFERENCE UNITS LAB L3100.0400 Negative Normal HB Negative SURF AG Result Comment: Performed at: [address] [id number] Textile Conversion Manager: Anibal Barrera PhD, Phone: [phone] Performed By: #### L3100.0390, L3100.0625 #### [facility] (refer to report for specific site) refer to report for address and phone number HEPATITIS C ANTIBODIES Collected: 12/21/2017 Status: F Source: [place] 3:05 PM [facility] REPOSITORY Order Comment: Specimen Comment: A duplicate report has been generated due to demographic Specimen Comment: updates. TYPE CODE TESTS RESULT OUT OF RANGE REFERENCE UNITS LAB L3100.0650 0.0-0.9 s/co ratio Normal HEP C AB <0.1 Result Comment: Negative: < 0.8 Indeterminate: 0.8 - 0.9 Positive: > 0.9 The CDC recommends that a positive HCV antibody result be followed up with a HCV Nucleic Acid Amplification test (898752). Performed By: #### L3100.0390, L3100.0625 #### [facility] (refer to report for specific site) refer to report for address and phone number TYPE AND SCREEN Collected: 12/21/2017 Status: F Source: [place] 3:05 PM [facility] REPOSITORY Order Comment: RESULT(S) PREVIOUSLY REPORTED ON MANUAL REQUISITION DURING DOWNTIME. Reason for Type AND Screen/Red Cells: TYPE CODE TESTS RESULT OUT OF RANGE REFERENCE UNITS LAB B10.0800 O Normal BLOOD TYPE GEL POSITIVE LAB B100.4000 Normal Antibody NEGATIVE Screen Performed By: #### B101.7450 #### [facility] [address] [facility] [place], [address] CT/NG [facility] BY PCR Collected: 12/08/2017 Status: F Source: [place] 2:16 PM [facility] REPOSITORY TYPE CODE TESTS RESULT OUT OF RANGE REFERENCE UNITS LAB L8200.2100 Negative Normal Chlam Negative Trac PCR LAB L8200.2200 Negative Normal NG by Negative PCR Performed By: #### L8200.2000 #### [facility] [address] [facility] [place], [address] PAP I-G W/RFX HRHPV Collected: 12/08/2017 Status: F Source: [place] 2:16 PM [facility] REPOSITORY Order Comment: CYTOLOGY INFORMATION: - CLINICAL INFORMATION: - DATE LMP/MENOPAUSE: 10/08/17 LMP - COLLECTION VIAL: Thin Prep Vial - MERCURY RECOVERER SOURCE: CERVICAL/ENDOCERVICAL - COLLECTION TECHNIQUE: BRUSH/SPATULA Specimen Comment: [id number] Specimen Comment: No. of containers..01 ThinPrep Vial TYPE CODE TESTS RESULT OUT OF RANGE REFERENCE UNITS LAB L7400.0800 . Normal DIAGN Comment Result Comment: NEGATIVE FOR INTRAEPITHELIAL LESION AND MALIGNANCY. LAB L7400.0900 . Normal ADEQ Comment Result Comment: Satisfactory for evaluation. Endocervical and/or squamous metaplastic cells (endocervical component) are present. LAB L7400.1400 . Normal PERFORM Comment Result Comment: Kortney Mi, Liability Analyst (ASCP) LAB L7400.2575 . Normal TEST METHOD Comment Result Comment: This liquid based ThinPrep(R) pap test was screened with the use of an image guided system. LAB L7400.2600 . Normal . COMM LAB L7400.2700 . Normal PAPSMR Comment Result Comment: The Pap smear is a screening test designed to aid in the detection of premalignant and malignant conditions of the uterine cervix. It is not a diagnostic procedure and should not be used as the sole means of detecting cervical cancer. Both false-positive and false-negative reports do occur. LAB L7400.2800 . Normal HPV RFLX Comment Result Comment: The HPV DNA reflex criteria were not met with this specimen result therefore, no HPV testing was performed. Performed at: - [facility] [id number] Textile Conversion Manager: Lanette Leach MD, Phone: [phone] Performed By: #### L7400.0350 #### [facility] (refer to report for specific site) refer to report for address and phone number ALLERGIES ALLERGIES DATE TYPE / CODE NAME / CODE REACTION SEVERITY SOURCE 06/23/2018 Drug No Known Unknown [facility] Allergy/4160 Allergies/F00 Hospital [address]59(SNOMED [id number](RXNOR Repository CT) M) ENCOUNTERS ENCOUNTERS ADMIT/DISCHARGE ACCOUNT NUMBER ADMITTING ENCOUNTER LOCATION SOURCE CLASS 06/30/2018/06/30/20 [id number] Ambulatory [address] Hospital ding:[facility] Repository om: WP012 06/27/2018/06/27/20 [id number] Ambulatory [facility] [facility] ding:[facility] Repository om: WP020 06/23/2018/06/23/20 [id number] Ambulatory [facility] [place] Hospital ding:[facility] Repository om: WP015 06/20/2018 [id number] Ambulatory [facility] Hospital ding:[facility] Repository 06/20/2018/06/20/20 [id number] Ambulatory [address] ding:[facility]OU[facility] Repository om: WP012 06/16/2018/06/16/20 [id number] Ambulatory [address] Hospital ding:[facility] Repository om: WP011 06/13/2018/06/13/20 [id number] Ambulatory [address] Hospital ding:[facility] Repository om: WP011 06/09/2018/06/09/20 [id number] Ambulatory [address] Hospital ding:[facility] Repository om: WP012 06/06/2018/06/06/20 [id number] Ambulatory [place] Hospital ding:[facility] Repository om: WP013 05/15/2018/05/15/20 [id number] Emergency [facility] [place] ding:ED Repository 05/01/2018 [id number] Ambulatory [facility] Hospital ding:[facility]BL[facility] Repository 12/21/2017 [id number] Ambulatory [facility] ding:WOBLAB Repository 12/18/2017/12/19/[id number] [facility] Repository 12/08/2017 [id number] Ambulatory [facility] ding:LABSPEC Repository PAYERS PAYERS ENCOUNTER GUARANTOR PAYER SUBSCRIBER SOURCE 06/30/2018 KEYON Stringer Primary KEYON Swann [id number] [place] Insurance:ANTHEMPolic [facility]DOB[facility] [place]: [id number] Hospital 59042Qtq: (523) [id number] Repository [phone] () Date:2523-77-08BF [address] [place] [address] 77284FD: 06/30/2018 Secondary NOT GIVENUNK [place] Insurance:SELF PAY [facility] Number: Effective Repository Date:2018-06-30 06/27/2018 KEYON Stringer Primary KEYON Swann [id number] [place] Insurance:ANTHEMPolic MURRAYDOB: [facility] Number: [id number] Hospital 41247Xkk: (002) [id number] Repository [phone] () Date:9091-79-20JC [address] [place] [address] 49578BQ: 06/27/2018 Secondary NOT GIVENUNK Shree Insurance:SELF PAY [facility] Number: Effective Repository Date:2018-06-27 06/23/2018 KEYON Stringer Primary KEYON Swann [id number] [place] Insurance:ANTHEMPolic MURRAYDOB: [facility] [place] Number: [id number] Hospital 71344Fiy: [id number] Repository [phone] () Date:9277-87-98EP [address] [place] [address] 78869QW: 06/23/2018 Secondary NOT GIVENUNK Shree Insurance:SELF PAY [facility] Number: Effective Repository Date:2018-06-23 06/20/2018 KEYON Stringer Primary KEYON Swann [id number] [place] Insurance:ANTHEMPolic MURRAYDOB: [facility] Number: [id number] Hospital 40432Fcy: ([phone]) [id number] Repository [phone] () Date:5126-18-80UY [address] [place] [address] 64604UD: 06/20/2018 Secondary NOT GIVENUNK [place] Insurance:SELF PAY [facility] Number: Effective Repository Date:2018-06-20 06/20/2018 KEYON Stringer Primary KEYON Stringer [place] [id number] [place] Insurance:ANTHEMPolic MURRAYDOB: [facility] Number: [id number] Hospital 37629Eqa: (600) [id number] Repository [phone] () Date:4277-69-59JJ [id number] [place] [address] 57104OC: 06/20/2018 Secondary NOT GIVENUNK Shree Insurance:SELF PAY [facility] Number: Effective Repository Date:2018-06-20 06/16/2018 KEYON Stringer Primary KEYON Stringer [place] [id number] [place] Insurance:ANTHEMPolic MURRAYDOB: [place]: [id number] [id number]: [phone] [id number] Repository [phone] () Date:0504-39-06VC [address]HPFI, [place] [address]AN: 06/16/2018 Secondary NOT GIVENUNK [place] Insurance:SELF PAY [facility] Number: Effective Repository Date:2018-06-16 06/13/2018 KEYON Stringer Primary KEYON Stringer [place] [id number] [place] Insurance:ANTHEMPolic MURRAYDOB: [place] Number: [id number] [id number]: [phone] [id number] Repository [phone] () Date:8712-43-44XI [id number] [place] [address] 98649YJ: 06/13/2018 Secondary NOT GIVENUNK [place] Insurance:SELF PAY [facility] Number: Effective Repository Date:2018-06-13 06/09/2018 KEYON Stringer Primary KEYON Stringer Shree [id number] [place] Insurance:ANTHEMPolic MURRAYDOB: [place] Number: [id number] [id number]: (643) [id number] Repository [phone] () Date:6383-97-50GH [address]OGJJA [place] [address]EA: 06/09/2018 Secondary NOT GIVENUNK [place] Insurance:SELF PAY [facility] Number: Effective Repository Date:2018-06-09 06/06/2018 KEYON M Primary KEYON M Shree [id number] [place] Insurance:ANTHEMPolic MURRAYDOB: [facility] Number: [id number] Hospital 88127Wol: 937) [id number] Repository [phone] () Date:0558-31-30MO [address]ZX[address] [place] [address]FX: 06/06/2018 Secondary NOT GIVENUNK Shree Insurance:SELF PAY [facility] Number: Effective Repository Date:2018-06-06 05/15/2018 KEYON M Primary KEYON M [place] [id number] [place] Insurance:ANTHEMPolic MURRAYDOB: [facility] Number: [id number] Hospital [address]Ari: 939) [id number] Repository [phone] () Date:0263-52-45ZK [address] [place] [address] 49975UM: 05/15/2018 Secondary NOT GIVENUNK [place] Insurance:SELF PAY [facility] Number: Effective Repository Date:2018-05-15 05/01/2018 KEYON Primary KEYON Shree [id number] [place] Insurance:ANTHEMPolic MURRAYDOB: [facility] Number: [id number] Hospital 405[address]Gkj: . (HP) [id number] Repository Date:3771-27-38LQ [id number] [place] [address]RX: 05/01/2018 Secondary NOT GIVENUNK Shree Insurance:SELF PAY [facility] Number: Effective Repository Date:2018-05-01 12/21/2017 KEYON Primary KEYON [place] [id number] [place] Insurance:ANTHEMPolic MURRAYDOB: [facility] Number: [id number] Hospital 98[address]Xho: . () [id number] Repository Date:2820-46-29WU [address]CEQDMFY, [place] [address]LH: 12/21/2017 Secondary NOT GIVENUNK Shree Insurance:SELF PAY [facility] Number: Effective Repository Date:2017-12-21 12/08/2017 KEYON Primary KEYON [place] [id number] [place] Insurance:ANTHEMPolic MURRAYB: [place] Number: [id number] Hospital 25595Ctk: . () [id number] Repository Date:9675-69-22VC [address]RXJMGQA [place] [address]UX: 12/08/2017 Secondary NOT GIVENUNK [place]ree Insurance:SELF PAY [facility] Number: Effective Repository Date:2017-12-08
== END 2018-06-13 18:20 | disposition home or self-care (01) ==
LOC: WPOUT 17:38 → WP 17:38
PROVIDERS: Referring Provider Obstetrics & Gynecology; Visit Provider Obstetrics & Gynecology
DX: O36.63X0 Maternal care for excessive fetal growth, third trimester, not applicable or unspecified (principal); O30.003 Twin pregnancy, unspecified number of placenta and unspecified number of amniotic sacs, third trimester; Z3A.33 33 weeks gestation of pregnancy
CPT/HCPCS: 59025

== ENCOUNTER 2018-06-16 09:40 | Outpatient (CLI) | payer BC, SELFPAY ==
--- NOTE | 2018-06-17 08:27 | OB.TRI.NOTE ---
History of Present Illness Date of Service: 06/16/18 Was patient seen by the physician?: No Reason For Visit: NST/TWINS Date of Service: 06/16/18 Final CHEN: 07/30/18 Final CHEN Source: US <20 weeks Gestational age: 33 Weeks and 5 Days History of Present Illness: 28 yo twin IUP for scheduled NST. Allergies No Known Allergies Allergy (Verified 06/16/18 11:00) NST - FHR Rate Baby A Baseline: 130-140 intermittent tracing accels to 160s Variability:: Moderate Accelerations:: 15 x 15 Decelerations:: None NST Reactive:: Yes, Appropriate for gestational age Uterine Activity:: no UCs noted. - FHR Rate Baby B Baseline: 130-140 avg accels to 160s Accelerations:: 15 x 15 Decelerations:: None NST Reactive:: Yes, Appropriate for gestational age FHR Category:: Category I Impression/Plan Twin IUP 33w5d Reactive NST Continue NSTs as planned until delivery Keep ofc appt as scheduled for PNV, growth sonos.
--- OUTSIDE RECORDS SUMMARY | 2018-08-10 19:28 | XMS RPT_ITS ---
:1990 Author Organization OHIP Support Name Relationship Address Phone JULIO C GALVEZ Unavailable [address] + [place] [address] [facility] Unavailable [address] + [place] [address] [facility] Unavailable [address] + [place] [address] [employer] Unavailable [address] + [place] [address] [facility] Unavailable [address] + [place] [address] [facility] Unavailable [address] + [place] [address] [facility] Unavailable [address] + [place] [address] [facility] Unavailable [address] + [place] [address] [facility] Unavailable [address] + [place] [address] [facility] Unavailable [address] + [place] [address] [facility] Unavailable [address] + [place] [address] [facility] Unavailable [address] + [place] [address] [facility] Unavailable [address] + [place] [address] [facility] Unavailable [address] + [place] [address] [facility] Unavailable [address] + [place] [address] [facility] Unavailable [address] + [place] [address] [facility] Unavailable [address] + [place] [address] [facility] Unavailable [address] + [place] [address] JULIO C GALVEZ Unavailable [address] + [place] [address] [facility] Unavailable [facility] [address] + [place] [id number] UNK Unavailable / +. [place] [...] Attending Unavailable Seals, Agustin Attending Unavailable Denney, Yoshi Attending Unavailable Primay Care Physicia, No Primary [...] STATUS SOURCE 06/20/2018 Unknown Z36.85 - Encounter SealAgustin dumas Active [place] [facility] screening for [facility] Streptococcus B / Repository Z36.85(ICD-10) 07/02/2018 Unknown O30.003 - Twin Sealpiter, Agustin Active [place] , Community unspecified number Hospital of placenta and Repository unspecified number of amniotic sacs, third trimester / O30.003(ICD-10) 05/01/2018 Unknown O30.042 - Twin Seals, Agustin Active [facility] , Community dichorionic/diamnio Hospital tic, second Repository trimester / O30.042(ICD-10) 12/08/2017 Unknown Z12.4 - Encounter Seals, Agustin Active [place] [facility] malignant neoplasm Hospital of cervix / Repository Z12.4(ICD-10) 12/08/2017 Unknown Z11.3 - Encounter Agustin Cole Active [facility] for Community infections with a Hospital predominantly Repository sexual mode of transmission / Z11.3(ICD-10) PROCEDURES PROCEDURES No Procedure Records FoundRESULTS RESULTS Observed: 06/20/2018 Status: F Source: [facility] CULTURE, GROUP B 3:30 PM [facility] STREPTOCOCCUS REPOSITORY Comments: VAGINAL/RECTAL CAROL Culture Group B Beta Streptococcus is not isolated. Performed By: #### M100.1800 #### [facility] [address] [facility] [place], [address] EMERGENCY DEPARTMENT Observed: 05/15/2018 Status: F Source: [facility] SUMMARY 4:09 PM [facility] REPOSITORY [facility] Medical Records Department [address] [place] [address] Emergency Department Summary 05/15/18 1604 MR#: [id number] Acct: [id number] Name: KEYON GALVEZ Rep #: [id number] : 1990 28 From: Yoshi Denney MD [...] 500 mg to treat her cystitis. 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 Agustin Cole was paged to inform him of patient's urine results and need to follow-up urine culture. Treatment Plan: Treat cystitis and hyperemesis with cephalexin and Zofran ODT Disposition: Discharged to home in stable and improved condition Impression: 1. Hyperemesis gravidarum 2. Ketosis 3. Cystitis This note was generated with [employer] dictation software. It may contain incorrect words, [...] your Primary Care Provider. Call [facility] ([phone]) or report to the closest Emergency Room. Call 911 if necessary. 05/15/18 4482 <Electronically signed by Yoshi Denney MD> Date Yoshi Denney MD Cosigner Signature (If Indicated): Date CC: No Primary Care Physician; Agustin Cole MD URINALYSIS, COMPLETE Collected: 05/15/2018 Status: F Source: SHREE 2:10 PM [facility] REPOSITORY Order Comment: Order Date: 05/15/18 How [...] URINE SEEN Performed By: #### L400.0001 #### [facility] [address] [facility] [place], [place], [address] Observed: 05/15/2018 Status: F Source: [facility] CULTURE, URINE 2:10 PM [facility] REPOSITORY Urine Culture Below infection level. ORGANISM 1: Mixed Gram Positive Organisms [place] Count 1000-10,000 Performed By: #### M100.0650 #### [facility] [address] [facility] [place], [address] GLUCOSE CHALLENGE GEST Collected: 05/01/2018 Status: F Source: [facility] 1H 50G 2:03 PM [facility] REPOSITORY TYPE CODE TESTS RESULT OUT OF RANGE REFERENCE UNITS LAB L501.0250 70-140 mg/dL Normal GLU GEST 110 50g 1H Performed By: #### L501.0250 #### [facility] [address] [place], [address] CBC-COMPLETE BLOOD CNT Collected: 05/01/2018 Status: F Source: [facility] NO DIFF 2:03 PM [facility] REPOSITORY TYPE CODE TESTS RESULT OUT OF [...] MPV 9.9 Performed By: #### L100.0500 #### [facility] [address] [place], [address] DOWNTIME REPORT Observed: 01/04/2018 Status: F Source: SHREE 2:01 PM [facility] REPOSITORY [facility] Medical Records Department [address] [place] [address] Downtime Report MR#: [id number] Acct: [id number] Name: KEYON GALVEZ Rep #: [id number] : 1990 27 From: Hung Barclay PCP: Status: REG CLI This patient was seen during an EMR downtime December 18, 2017 - December 25, 2017. This patient may have a combination of paper and electronic documentation or all paper documentation. All documentation is viewable within the e-chart portion of [facility] for each patient visit. T AND S-NO Collected: 12/21/2017 Status: F Source: [facility] CHARGE W/PNP 3:05 PM [facility] REPOSITORY Order Comment: RESULT(S) PREVIOUSLY REPORTED ON MANUAL REQUISITION DURING DOWNTIME. Reason for Type AND Screen/Red Cells: Surgery? N TYPE CODE TESTS RESULT OUT OF RANGE REFERENCE UNITS LAB B10.0800 O Normal BLOOD POSITIVE TYPE GEL LAB B100.4050 Normal Ab SCREEN NEGATIVE GEL Performed By: #### B100.7550 #### [facility] [address] [facility] [place], [place], [address] URINE DRUG SCREEN Collected: 12/21/2017 Status: P Source: [facility] (VISTA) 3:05 PM [facility] REPOSITORY Order Comment: List of Drugs Taken [...] UTCA Performed By: #### L505.5000, L505.6240 #### [facility] [address] [facility] [place], [place], [address] NICOTINE URINE DRUG Collected: 12/21/2017 Status: P Source: [facility] SCREEN 3:05 PM [facility] REPOSITORY Order Comment: List of Drugs Taken [...] Nicotine. Performed By: #### L505.5000, L505.6240 #### [facility] [address] [facility] [place], [place], [id number] RPR Collected: 12/21/2017 Status: F Source: CRAB ORCHARD 3:05 PM [facility] REPOSITORY TYPE CODE TESTS RESULT OUT OF REFERENCE UNITS RANGE LAB L700.5100 NONREACTIVE Normal RPR NONREACTIVE Performed By: #### L700.5100 #### [facility] [facility] [address] [place], [address] RUBELLA IGG Collected: 12/21/2017 Status: F Source: CRAB ORCHARD 3:05 PM [facility] REPOSITORY TYPE CODE TESTS RESULT OUT OF RANGE REFERENCE UNITS LAB L509.4000 IU/mL Normal Rubella IgG 7.5 Result Comment: Antibody results Interpretation of Immune Status < 5 IU/ml Presumed Non-immune 5 - < 10 IU/ml Equivocal > or = 10 IU/ml Presumed Immune Performed By: #### L509.4000, L3890.6005 #### [facility] [facility] [place], [address] HIV - [facility] Collected: 12/21/2017 Status: F Source: CRAB ORCHARD 3:05 [facility] REPOSITORY TYPE CODE TESTS RESULT OUT OF RANGE REFERENCE UNITS LAB L3890.6005 Nonreactive Normal HIV - [facility] Non-Reactive Performed By: #### L509.4000, L3890.6005 #### [facility] [facility] [place], [address] CBC W/DIFF, AUTOMATED Collected: 12/21/2017 Status: F Source: CRAB ORCHARD 3:05 PM [facility] REPOSITORY TYPE CODE TESTS RESULT OUT OF [...] not performed Performed By: #### L100.0100 #### [facility] [address] [facility] [place], [address] URINALYSIS, ROUTINE Collected: 12/21/2017 Status: F Source: [facility] (DIPSTICK) 3:05 PM [facility] REPOSITORY Order Comment: How was Urine Obtained? [...] ESTERASE 500 Performed By: #### L400.2011 #### [facility] [address] [place], [place], [address] THYROID STIM HORMONE Collected: 12/21/2017 Status: F Source: [facility] (TSH) 3:05 PM [facility] REPOSITORY Order Comment: RESULT(S) PREVIOUSLY REPORTED ON MANUAL REQUISITION DURING DOWNTIME. TYPE CODE TESTS RESULT OUT OF RANGE REFERENCE UNITS LAB L501.9520 0.358-3.74 uIU/mL Normal TSH 1.45 Performed By: #### L501.9520 #### [facility] [place], [place], [address] HEPATITIS B SURFACE Collected: 12/21/2017 Status: F Source: SHREE AG 3:05 PM [facility] REPOSITORY Order Comment: Specimen Comment: A duplicate report has been generated due to demographic Specimen Comment: updates. TYPE CODE TESTS RESULT OUT OF RANGE REFERENCE UNITS LAB L3100.0400 Negative Normal HB Negative SURF AG Result Comment: Performed at: [address] [id number] Supervisor Inspection Room: Anibal Barrera PhD, Phone: [phone] Performed By: #### L3100.0390, L3100.0625 #### [facility] (refer to report for specific site) refer to report for address and phone number HEPATITIS C ANTIBODIES Collected: 12/21/2017 Status: F Source: CRAB ORCHARD 3:05 PM [facility] REPOSITORY Order Comment: Specimen Comment: A duplicate [...] with a HCV Nucleic Acid Amplification test ([id number]). Performed By: #### L3100.0390, L3100.0625 #### [facility] (refer to report for specific site) refer to report for address and phone number TYPE AND SCREEN Collected: 12/21/2017 Status: F Source: CRAB ORCHARD 3:05 PM [facility] REPOSITORY Order Comment: RESULT(S) PREVIOUSLY REPORTED ON MANUAL REQUISITION DURING DOWNTIME. Reason for Type AND Screen/Red Cells: TYPE CODE TESTS RESULT OUT OF RANGE REFERENCE UNITS LAB B10.0800 O Normal BLOOD TYPE GEL POSITIVE LAB B100.4000 Normal Antibody NEGATIVE Screen Performed By: #### B101.7450 #### [facility] [address] [facility] [place], [address] CT/NG [facility] BY PCR Collected: 12/08/2017 Status: F Source: CRAB ORCHARD 2:16 PM [facility] REPOSITORY TYPE CODE TESTS RESULT OUT OF RANGE REFERENCE UNITS LAB L8200.2100 Negative Normal Chlam Negative Trac PCR LAB L8200.2200 Negative Normal NG by Negative PCR Performed By: #### L8200.2000 #### [facility] [address] [facility] [place], [address] PAP I-G W/RFX HRHPV Collected: 12/08/2017 Status: F Source: SHREE 2:16 PM [facility] REPOSITORY Order Comment: CYTOLOGY INFORMATION: - CLINICAL INFORMATION: - DATE LMP/MENOPAUSE: 10/08/17 LMP - COLLECTION VIAL: Thin Prep Vial - COMMUNITY RELATIONS REPRESENTATIVE SOURCE: CERVICAL/ENDOCERVICAL - COLLECTION TECHNIQUE: BRUSH/SPATULA Specimen Comment: [id number] Specimen Comment: No. of containers..01 ThinPrep Vial TYPE CODE TESTS RESULT OUT OF RANGE REFERENCE UNITS LAB L7400.0800 . Normal DIAGN Comment Result Comment: NEGATIVE FOR INTRAEPITHELIAL LESION AND MALIGNANCY. LAB L7400.0900 . Normal ADEQ Comment Result Comment: Satisfactory for evaluation. Endocervical and/or squamous metaplastic cells (endocervical component) are present. LAB L7400.1400 . Normal PERFORM Comment Result Comment: Kortney Mi, Field Underwriter (ASCP) LAB L7400.2575 . Normal TEST METHOD [...] HPV testing was performed. Performed at: - [facility] [id number] Supervisor Inspection Room: Lanette Leach MD, Phone: [phone] Performed By: #### L7400.0350 #### [facility] (refer to report for specific site) refer to report for address and phone number ALLERGIES ALLERGIES DATE TYPE / CODE NAME / CODE REACTION SEVERITY SOURCE 06/23/2018 Drug No Known Unknown [facility] Allergy/4160 Allergies/F00 Hospital [address]77(SNOMED 2642532(RXNOR Repository CT) M) ENCOUNTERS ENCOUNTERS ADMIT/DISCHARGE ACCOUNT NUMBER ADMITTING ENCOUNTER LOCATION SOURCE CLASS 06/30/2018/06/30/20 [id number] Ambulatory [address] Hospital ding:WPOUTRo Repository om: WP012 06/27/2018/06/27/20 [id number] Ambulatory [facility] Hospital ding:WPOUTRo Repository om: WP020 06/23/2018/06/23/20 [id number] Ambulatory [place] [place] Hospital ding:WPOUTRo Repository om: WP015 06/20/2018 [id number] Ambulatory [facility] Hospital ding:LABSPEC Repository 06/20/2018/06/20/20 [id number] Ambulatory [address] ding:WPOUTRo Repository om: WP012 06/16/2018/06/16/20 [id number] Ambulatory [address] Hospital ding:WPOUTRo Repository om: WP011 06/13/2018/06/13/20 [id number] Ambulatory [address] Hospital ding:WPOUTRo Repository om: WP011 06/09/2018/06/09/20 [id number] Ambulatory [address] Hospital ding:WPOUTRo Repository om: WP012 06/06/2018/06/06/20 [id number] Ambulatory [place] Hospital ding:WPOUTRo Repository om: WP013 05/15/2018/05/15/20 [id number] Emergency [place] [place] ding:ED Repository 05/01/2018 [id number] Ambulatory [facility] Hospital ding:WOBLAB Repository 12/21/2017 [id number] Ambulatory [facility] Hospital ding:WOBLAB Repository 12/18/2017/12/19/[id number] [facility] Repository 12/08/2017 [id number] Ambulatory [facility] ding:LABSPEC Repository PAYERS PAYERS ENCOUNTER GUARANTOR PAYER SUBSCRIBER SOURCE 06/30/2018 KEYON Stringer Primary KEYON Swann [id number] [place] Insurance:ANTHEMPolic [facility] [place] [place] Number: [id number] Hospital [address]Xic: (677) [id number] Repository [phone] () Date:8413-68-68RW [address] [place] [address] 23400VF: 06/30/2018 Secondary NOT GIVENUNK [place] Insurance:SELF PAY [facility] Number: Effective Repository Date:2018-06-30 06/27/2018 KEYON Stringer Primary KEYON Swann [id number] [place] Insurance:ANTHEMPolic MURRAYDOB: [facility], [place] Number: [id number] Hospital [address]Ylm: (404) [id number] Repository [phone] () Date:7696-31-51XO [address] [place] [address] 76538FB: 06/27/2018 Secondary NOT GIVENUNK [facility] Insurance:SELF PAY [facility] Number: Effective Repository Date:2018-06-27 06/23/2018 KEYON Stringer Primary KEYON Swann [id number] [place] Insurance:ANTHEMPolic MURRAYDOB: [facility] [place] Number: [id number] Hospital [address]Zch: [id number] Repository [phone] () Date:4544-84-53KS [address] [place] [address] 47[address]NO: 06/23/2018 Secondary NOT GIVENUNK [facility] Insurance:SELF PAY [facility] Number: Effective Repository Date:2018-06-23 06/20/2018 KEYON Stringer Primary KEYON Swann [id number] [place] Insurance:ANTHEMPolic MURRAYDOB: [facility], [place] Number: [id number] Hospital [address]Nhs: (745) [id number] Repository [phone] () Date:9465-76-42PJ [address] [place] [address] 63840DK: 06/20/2018 Secondary NOT GIVENUNK [place] Insurance:SELF PAY [facility] Number: Effective Repository Date:2018-06-20 06/20/2018 KEYON Stringer Primary KEYON Stringer [place] [id number] [place] Insurance:ANTHEMPolic MURRAYDOB: [facility], [place] Number: [id number] Hospital [address]Qiy: [phone]) [id number] Repository [phone] () Date:3508-84-44WV [address] [place] [address] 986[address]YQ: 06/20/2018 Secondary NOT GIVENUNK [facility] Insurance:SELF PAY [facility] Number: Effective Repository Date:2018-06-20 06/16/2018 KEYON Stringer Primary KEYON Stringer [place] [id number] [address] Insurance:ANTHEMPolic MURRAYDOB: [place] Number: [id number] [id number]: [phone] [id number] Repository [phone] () Date:1472-48-72HT [address]VPKLPBW, [place] [address]VD: 06/16/2018 Secondary NOT GIVENUNK [place] Insurance:SELF PAY [facility] Number: Effective Repository Date:2018-06-16 06/13/2018 KEYON Stringer Primary KEYON Stringer [place] [id number] [address] Insurance:ANTHEMPolic MURRAYDOB: [place] Number: [id number] [id number]: [phone] [id number] Repository [phone] () Date:4455-22-84[place] [address] [place] [address]PB: 06/13/2018 Secondary NOT GIVENUNK [place] Insurance:SELF PAY [facility] Number: Effective Repository Date:2018-06-13 06/09/2018 KEYON Stringer Primary KEYON Stringer [place] [id number] [place] Insurance:ANTHEMPolic MURRAYDOB: [place] Number: [id number] [id number]: ([phone]) [id number] Repository [phone] () Date:6592-08-15[address]YV [place] [address]TQ: 06/09/2018 Secondary NOT GIVENUNK [place] Insurance:SELF PAY [facility] Number: Effective Repository Date:2018-06-09 06/06/2018 KEYON M Primary KEYON M [place] [id number] [place] Insurance:ANTHEMPolic MURRAYDOB: [facility], [place] Number: [id number] Hospital [address]Nit: [phone]) [id number] Repository [phone] () Date:6240-98-28FW [address]GYVJVOT [place] [address]TS: 06/06/2018 Secondary NOT GIVENUNK [place] Insurance:SELF PAY [facility] Number: Effective Repository Date:2018-06-06 05/15/2018 KEYON M Primary KEYON M [place] [id number] [address] Insurance:ANTHEMPolic MURRAYDOB: [facility], [place] Number: [id number] Hospital [address]Yjj: [phone]) [id number] Repository [phone] () Date:8942-65-05WH [address] [place] [address] 80[address]SE: 05/15/2018 Secondary NOT GIVENUNK [place] Insurance:SELF PAY [facility] Number: Effective Repository Date:2018-05-15 05/01/2018 KEYON Primary KEYON [facility] [id number] [address] Insurance:ANTHEMPolic MURRAYDOB: [facility], [place] Number: [id number] [address]Ubl: . (HP) [id number] Repository Date:8489-65-56FQ [address]VRTGPKX [place] [address]BB: 05/01/2018 Secondary NOT GIVENUNK [facility] Insurance:SELF PAY [facility] Number: Effective Repository Date:2018-05-01 12/21/2017 KEYON Primary KEYON [place] [id number] [place] Insurance:ANTHEMPolic MURRAYDOB: [facility], [place] Number: [id number] Hospital [address]Fcp: . () [id number] Repository Date:3783-40-77SZ [address]B, [place] [address]ZX: 12/21/2017 Secondary NOT GIVENUNK [facility] Insurance:SELF PAY [facility] Number: Effective Repository Date:2017-12-21 12/08/2017 KEYON Primary KEYON [place] [id number] [address] Insurance:ANTHEMPolic MURRAYB: [place] Number: [id number] Hospital [address]Mmx: . () [id number] Repository Date:5064-97-84XA [address]KMKEADQ [place] [address]ZC: 12/08/2017 Secondary NOT GIVENUNK [facility] Insurance:SELF PAY [facility] Number: Effective Repository Date:2017-12-08
== END 2018-06-16 10:30 | disposition home or self-care (01) ==
LOC: WPOUT 09:46 → WP 09:46
PROVIDERS: Referring Provider Obstetrics & Gynecology; Visit Provider Obstetrics & Gynecology
DX: O30.003 Twin pregnancy, unspecified number of placenta and unspecified number of amniotic sacs, third trimester (principal); Z3A.33 33 weeks gestation of pregnancy
CPT/HCPCS: 59025

== ENCOUNTER 2018-06-20 15:35 | Outpatient (CLI) | payer BC, SELFPAY ==
[2018-06-20 15:53] VITALS: BMI 34.0
--- NOTE | 2018-06-27 10:01 | OB.TRI.NOTE ---
History of Present Illness Date of Service: 06/20/18 Was patient seen by the physician?: Yes Reason For Visit: NST Date of Service: 06/20/18 Final CHEN: 07/30/18 Final CHEN Source: US <20 weeks Gestational age: 35 Weeks and 2 Days History of Present Illness: Scheduled NST for twin Allergies No Known Allergies Allergy (Verified 06/23/18 10:06) Physical Exam General: Alert, Oriented x3, Cooperative, No apparent distress Cardiovascular: Regular rate, Regular Rhythm Lungs: Clear to auscultation, Normal air movement Abdomen: Non Tender, Gravid, - - LGA/twins Extremities:: No edema Neurological: Neuro grossly intact Estimated gestational size: Large for gestational age Presentation: Cephalic NST - FHR Rate Baby A Baseline: 120s Variability:: Moderate Accelerations:: 15 x 15 Decelerations:: None NST Reactive:: Yes, Appropriate for gestational age FHR Category:: Category I Uterine Activity:: irregular - FHR Rate Baby B Baseline: 120s Variability:: Moderate Accelerations:: 15 x 15 Decelerations:: None NST Reactive:: Yes, Appropriate for gestational age FHR Category:: Category I Uterine Activity:: irregular Impression/Plan Reassuring Twin NST at 35 weeks.
== END 2018-06-20 16:30 | disposition home or self-care (01) ==
LOC: WPOUT 15:39 → WP 15:40
PROVIDERS: Referring Provider Obstetrics & Gynecology; Visit Provider Obstetrics & Gynecology
DX: O30.003 Twin pregnancy, unspecified number of placenta and unspecified number of amniotic sacs, third trimester (principal); O36.63X0 Maternal care for excessive fetal growth, third trimester, not applicable or unspecified; Z3A.35 35 weeks gestation of pregnancy
CPT/HCPCS: 59025

== ENCOUNTER → 2018-06-20 16:56 | Outpatient (CLI) | payer BC, SELFPAY ==
[2018-06-20 15:53] VITALS: BMI 34.0
== END ==
PROVIDERS: Visit Provider Obstetrics & Gynecology
DX: Z36.85 Encounter for antenatal screening for Streptococcus B (principal)
CPT/HCPCS: 87081

== ENCOUNTER 2018-06-23 09:25 | Outpatient (CLI) | payer BC, SELFPAY ==
[2018-06-23 10:05] VITALS: BMI 33.8
--- NOTE | 2018-06-23 10:19 | OB.TRI.NOTE ---
History of Present Illness Date of Service: 06/23/18 Was patient seen by the physician?: No Reason For Visit: NST Date of Service: 06/23/18 Final CHEN: 07/30/18 Final CHEN Source: US <20 weeks Gestational age: 34 Weeks and 5 Days History of Present Illness: 34+ week IUP with twin gestation presents for routine NST. Allergies No Known Allergies Allergy (Verified 06/23/18 10:06) NST - FHR Rate Baby A NST Reactive:: Yes FHR Category:: Category I - FHR Rate Baby B NST Reactive:: Yes FHR Category:: Category I Impression/Plan 34+ week gestation with twins with reactive NST x 2. Continue present care and routine follow-up.
== END 2018-06-23 10:25 | disposition home or self-care (01) ==
LOC: WPOUT 09:30 → WP 09:31
PROVIDERS: Referring Provider Obstetrics & Gynecology; Visit Provider Obstetrics & Gynecology
DX: O30.003 Twin pregnancy, unspecified number of placenta and unspecified number of amniotic sacs, third trimester (principal); Z3A.34 34 weeks gestation of pregnancy
CPT/HCPCS: 59025; 59050; 99218; G0378

== ENCOUNTER 2018-06-27 14:59 | Outpatient (CLI) | payer BC, SELFPAY ==
[2018-06-27 15:21] VITALS: BMI 33.7
--- NOTE | 2018-06-28 08:30 | OB.TRI.NOTE ---
History of Present Illness Date of Service: 06/27/18 Was patient seen by the physician?: Yes Reason For Visit: NST Date of Service: 06/27/18 Final CHEN: 07/30/18 Final CHEN Source: US <20 weeks Gestational age: 35 Weeks and 3 Days History of Present Illness: Twin gestation for scheduled NST Allergies No Known Allergies Allergy (Verified 06/23/18 10:06) Physical Exam General: Alert, Oriented x3, Cooperative, No apparent distress Cardiovascular: Regular rate, Regular Rhythm Lungs: Clear to auscultation, Normal air movement Abdomen: Soft, Non Tender, Non-Distended, Gravid, - - LGA Twins Neurological: Neuro grossly intact NST - FHR Rate Baby A Baseline: 140s Variability:: Moderate Accelerations:: 15 x 15 Decelerations:: None NST Reactive:: Yes, Appropriate for gestational age FHR Category:: Category I Uterine Activity:: Irregular - FHR Rate Baby B Baseline: 140s Variability:: Moderate Accelerations:: 15 x 15 Decelerations:: None NST Reactive:: Yes, Appropriate for gestational age FHR Category:: Category I Uterine Activity:: irregular Impression/Plan Reassuring NST for twin well being.
--- OUTSIDE RECORDS SUMMARY | 2018-08-13 20:27 | XMS RPT_ITS ---
:1990 Author Organization OHIP Support Name Relationship Address Phone JULIO C GALVEZ Unavailable [address] + [place] [address] [facility] Unavailable [address] + [place] [address] [facility] Unavailable [address] + [place] [address] [facility] Unavailable [address] + [place] [address] [facility] Unavailable [address] + [place] [address] [facility] Unavailable [address] + [place] [address] [facility] Unavailable [address] + [place] [address] [facility] Unavailable [address] + [place] [address] [facility] Unavailable [address] + [place] [address] [facility] Unavailable [address] + [place] [address] [facility] Unavailable [address] + [place] [address] [facility] Unavailable [address] + [place] [address] [facility] Unavailable [address] + [place] [address] [facility] Unavailable [address] + [place] [address] [facility] Unavailable [address] + [place] [address] [facility] Unavailable [address] + [place] [address] [facility] Unavailable [address] + [place] [address] [facility] Unavailable [address] + [place] [address] [facility] Unavailable [address] + [place] [address] [facility] Unavailable [address] + [place] [address] [facility] Unavailable [address] + [place] [address] [facility] Unavailable [address] + [place] [address] [facility] Unavailable [address] + [place] [address] [facility] Unavailable [address] + [place] [address] [facility] Unavailable [address] + [place] [address] [facility] Unavailable [address] + [place] [address] [facility] [place]. [place] Care Team Providers Name Role Phone Yo Jasmine Attending Unavailable Seals, Agustin Attending Unavailable Seals, Agustin Referring Unavailable Primay Care Physicia, No Primary Care Unavailable Seals, Agustin Attending Unavailable Seals, Agustin Referring Unavailable Primay Care Physicia, No Primary Care Unavailable Seals, Agustin Attending Unavailable Seals, Agustin Attending Unavailable Seals, Agustin Referring Unavailable Primay Care Physicia, No Primary Care Unavailable Seals, Agustin Admitting Unavailable Seals, Agustin Attending Unavailable Seals, Agustin Referring Unavailable Primay Care Physicia, No Primary Care Unavailable Kaila-Hallie Correa Attending Unavailable Hallie Chand Referring Unavailable Primay Care Physicia, No Primary [...] Primay Care Physicia, No Primary Care Unavailable Tran Koroma Attending Unavailable Tran Koroma Referring Unavailable Primay Care Physicia, No Primary Care Unavailable Seals, Agustin Attending Unavailable Seals, Agustin Referring Unavailable Primay Care Physicia, No Primary Care Unavailable Seals, Agustin Attending Unavailable Primay Care Physicia, No Primary Care Unavailable Allan Springer Attending Unavailable Allan Springer Referring Unavailable Primay Care Physicia, No Primary Care Unavailable PROBLEMS PROBLEMS DATE TYPE CONDITION / CODE ATTENDING STATUS SOURCE 07/15/2018 Unknown O30.003 - Twin SealAgustin dumas Active [facility] , Community unspecified number Hospital of placenta and Repository unspecified number of amniotic sacs, third trimester / O30.003(ICD-10) 07/15/2018 Unknown G89.18 - Other acute SealsAgustin Active [facility] postprocedural pain Community / G89.18(ICD-10) Hospital Repository 06/20/2018 Unknown Z36.85 - Encounter SealsAgustin Active [facility] for Community screening for Hospital Streptococcus B / Repository Z36.85(ICD-10) 05/01/2018 Unknown O30.042 - Twin SealAgustin dumas Active [facility] dichorionic/[facility]niot Hospital , second trimester Repository / O30.042(ICD-10) 12/08/2017 Unknown Z12.4 - Encounter SealsAgustin Active [facility] for screening for Community malignant neoplasm Hospital of cervix / Repository Z12.4(ICD-10) 12/08/2017 Unknown Z11.3 - Encounter Sealpiter, Agustin Active [facility] for screening for Community infections with a Hospital predominantly sexual Repository mode of transmission / Z11.3(ICD-10) PROCEDURES PROCEDURES No Procedure Records FoundRESULTS RESULTS DISCHARGE SUMMARY Observed: 07/17/2018 Status: F Source: [place] 10:55 AM [facility] REPOSITORY [facility] Medical Records Department [address] [place] [address] Discharge Summary 07/17/18 1048 MR#: [id number] Acct: [id number] Name: KEYON GALVEZ Rep #: [id number] : 1990 28 From: Tran Koroma MD PCP: Care Physician, No Primary Status: DIS IN Y Location: [id number] Discharge Date and Diagnosis Date of Admission: 07/11/18 - 37 3/7 wk twin, induction Date of Discharge: 07/15/18 - POD#4 s/p primary C/S - Secondary Discharge Diagnosis Chronic Problems Twin gestation in third trimester (Chronic) Hospital Course and Treatment Operations: - - Induction of labor. Primary C Section for failure to descend Epidural blood patch for spinal headache. Summary of Care Provided: The patient is a 28 year old female with twin IUP, Vtx- Vtx. Presents for induction of labor at 37 3/7 wk EGA with concordant twins . Progressed to complete and pushing but without further descent for 2 hrs. Decision made for primary C/S. Delivered on 07/11/18 twins. Twin A 7# 3 oz Ap 9/9 Vtx, OP. and Twin B 7# 3 oz, Ap 9/9 Vtx. Procedure uncomplicated with EBL 800 cc. Preoperative Hgb 10.8 g/dl. Postop Hgb 9.6 g/dl. Pt afebrile and VSS and exam benign. Postop course stable until POD#3 when she experienced a severe CRUZ which was worse with standing, sitting and resolved with lying down. Epidural blood patch performed and relief of CRUZ noted. Discharged home in stable condition on POD#4 from primary C/S. - Physical Exam Vital Signs Temp Pulse Resp BP Pulse Ox 98.1 F 58 L 16 110/58 L 98 //18 09:03 07/15/18 09:03 07/15/18 09:03 07/15/18 09:03 07/15/18 09:03 Oxygen Delivery Method Room Air Weight: 99.5 kg Body Mass Index (BMI) 36.5 Discharge Diet: No Restrictions Discharge Activity: Return to Normal Activity, May Shower Return to work on:: 09/11/18 May shower in (days): 0 May resume sexual activity in: 6 weeks Call your doctor if your incision/area has: Sudden Increased Bleeding, Increased Pain/ Swelling, Increased Redness, Foul Smelling Discharge, Swelling at the incision site Call your doctor if you observe: Fever of 101 or Higher, Inability to urinate, Inability to have a bowel movement, Using more than one pad per hour, Shortness of breath, Chest pain, Calf discomfort, Uncontrolled pain Remove Dressing in (days):: 3 Cleanse incision/area with: Soap AND Water Home Medications: Medications to take at Discharge Ferrous Gluconate 325 mg PO BIDCM 05/15/18 Pnv No.95/Ferrous Fum/Folic AC [ Formula Tablet] 1 each PO DAILY 05/15/18 Ibuprofen 600 mg PO 4X/DAY #30 tab 07/11/18 Oxycodone [Oxyir] 5 - 10 mg PO Q4H PRN PRN 7 Days #28 tab 07/11/18 Following Prescrptions Were Given to Patient: Oxycodone [Oxyir] 5 - 10 mg PO Q4H PRN PRN 7 Days #28 tab PRN Reason: Mod-Severe Pain (4-10/10) Ibuprofen 600 mg PO 4X/DAY #30 tab Primary Care Physician: Care Physician,No Primary [Primary Care Provider] - Please Follow Up With: Agustin Cole MD When: one week Medical Necessity - Tobacco Use Smoking Status: Former smoker Meaningful Use Info Meaningful Use Diagnoses (Choose all that apply): None applicable 07/17/18 1055 <Electronically signed by Tran Koroma MD> Date Tran Koroma MD Cosigner Signature (if applicable): Date CC: No Primary Care Physician; Tran Koroma MD Signed OPERATIVE REPORT Observed: 07/12/2018 Status: F Source: [place] 8:16 AM [facility] REPOSITORY [facility] Medical Records Department [address] [place] [address] Operative Report 07/11/18 2155 MR#: [id number] Acct: [id number] Name: KEYON GALVEZ Rep #: [id number] : 1990 28 From: Agustin Cole MD PCP: Care Physician, No Primary Status: ADM IN Location: [id number] Report of Operation Date of Procedure: 07/11/18 Pre-Operative Diagnosis: Arrest of Descent in sSecond Stage of Labor with Twin Post-Operative Diagnosis: Same Surgery/Procedure Performed:: Primary Low Transverse Section Description of Surgical Findings:: Normal appearing uterus, ovaries, and fallopian tubes. Baby A in vertex occiput posterior position weighing 3xbs1zf. Twin B in vertex presentation wieghing 7lb3oz. Apgars were 9/9 for both babies. meeting planner: Maritza Junior Type of Anesthesia:: Epidural Anesthesiologist: Al Salinas Special Medications: none Specimen's removed: Placenta Drains: Larsen Estimated Blood Loss (mL): 800cc Fluids Replaced: 1500cc LR Description of Procedure: After risks, indications, and postoperative expectations were reviewed with Keyon and her decision was made to deliver the twins by section. She was taken to the OR where she was given two grams of Ancef for surgical prophylaxis. Her epidural was dosed and found to be adequate. She was prepped and draped in the supine position with a leftward tilt. A larsen catheter was in place. Once anesthesia was deemed adequate a Pfannensteil skin incision was made approximately two centimeters above the pubic symphysis. The underlying subcutaneous tissue was dissected down the the level of the fascia using sharp and blunt dissection. The fascia was then incised horizontally in the midline and this incision was extended bilaterally with the Wyman scissors. The upper portion of the facial defect was then grasped with two Sho clamps, elevated and the rectus muscles dissected off with sharp and blunt dissection. In a similar fashion the rectus hr2arpwl were dissected off the lower fascial defect. The rectus muscles were then in the midline, the peritoneum identified and entered. The peritoneal defect was extended using blunt retraction. A bladder blade was made. The vesicouterine peritoneum was entered sharply and a bladder flap created. The bladder blade was replaced. A transverse incision was then made in the lower uterine segment. Baby A's head was then delivered without difficulty. The mouth and nares were suctioned with a bulb suction then the cord was clamped and cut. The baby was then handed to the waiting pediatric nurse for evaluation. The membranes surrounding Baby B were then ruptured and the baby delivered easily from the vertex presentation. The mouth and nares were suctioned then the cord clamped and cut. The baby was then handed off to the waiting pediatric nurse for evaluation. The placenta was then delivered manually. The uterus was exteriorized and cleared of all clot and membranes. The uterine incision was closed in two layers with #1 Vicryl suture. Where necessary figure of eight sutures of 0-Vicryl were used to effect excellent hemostasis. The posterior cul de sac and gutters were cleared of all clot and fluid. The uterus was then returned to the abdomen. Anthony was used over the uterine incision. The peritoneum was closed with 2-0 Vicryl. The rectus muscles reapproximated with 0-Vicryl sutures. The fascia was closed with a running stitch of #1 Stratofix suture. The subcutaneous tissue was closed with 2-0 Vicryl. The skin was closed with a subcuticular stitch of 4-0 Monocryl suture. Sponge, lap, needle and instrument counts were correct. Keyon was taken to the recovery room in stable condition. Grafts/Implants Used: none - Complications none - Admit VTE Documentation VTE Present on Admission: No VTE Mechan Device Prophylaxis: SCD's VTE Pharm Prophylaxis ordered?: No 07/12/18 0816 <Electronically signed by Agustin Cole MD> Date Agustin Cole MD CC: No Primary Care Physician; Agustin Cole MD Signed CBC-COMPLETE BLOOD CNT Collected: 07/12/2018 Status: F Source: [facility] NO DIFF 6:13 AM [facility] REPOSITORY Order Comment: Comments: Day #1 Reason for Laboratory Test TYPE CODE TESTS RESULT OUT OF RANGE REFERENCE UNITS LAB L100.1000 4.4-11.0 K/mm3 Normal WBC 10.2 LAB L100.1200 4.2-5.4 M/mm3 Low RBC 3.16 LAB L100.1300 12.0-15.0 g/dl Low HGB 9.6 LAB L100.1400 37-47 % Low HCT 30.1 LAB L100.1500 81-99 fL Normal MCV 95.3 LAB L100.1600 27.0-32.0 pg Normal MCH 30.4 LAB L100.1700 32-36 g/gl Low MCHC 31.9 LAB L100.1810 11.6-14.6 % High RDW CV 15.0 LAB L100.1820 35.1-43.9 fl High RDW SD 50.1 LAB L100.1900 150-450 K/mm3 Normal PLT 173 LAB L100.2000 6.2-12.0 fl Normal MPV 10.8 Performed By: #### L100.0500 #### [facility] [address] [place], [address] DISCHARGE INSTRUCTION Observed: 07/11/2018 Status: F Source: [facility] 11:06 PM [facility] REPOSITORY [facility] Medical Records Department [address] [place] [address] Instructions for Home/Discharge Instructions 07/11/18 2305 MR#: [id number] Acct: [id number] Name: KEYON GALVEZ Rep #: [id number] : 1990 28 From: Agustin Cole MD PCP: Care Physician, No Primary Status: ADM IN Discharge Diet: No Restrictions Discharge Activity: Return to Normal Activity, May Shower Return to work on:: 09/11/18 May shower in (days): 0 May resume sexual activity in: 6 weeks Call your doctor if your incision/area has: Sudden Increased Bleeding, Increased Pain/ Swelling, Increased Redness, Foul Smelling Discharge, Swelling at the incision site Call your doctor if you observe: Fever of 101 or Higher, Inability to urinate, Inability to have a bowel movement, Using more than one pad per hour, Shortness of breath, Chest pain, Calf discomfort, Uncontrolled pain Remove Dressing in (days):: 3 Cleanse incision/area with: Soap AND Water Additional Instructions: If you experience any of the following, contact your healthcare provider. * Bleeding that soaks a pad every hour for 2 hours * Fever 100.4 or higher * Unrelieved incision or abdominal pain * Swelling, redness, discharge or bleeding from your incision or episiotomy site * Your incision begins to separate * Problems urinating (including inability to urinate or burning while urinating). * Visual changes * Severe headache * Flu-like symptoms * Pain or redness in one of both of your breasts * Pain, warmth, tenderness or swelling in your legs, especially the calf area * Frequent nausea and vomiting * Symptoms of depression or anxiety If you experience any of the following, call 911 or go to the nearest Emergency Room. * Chest pain * Problems breathing * Seizure activity * Partial or complete paralysis of a body part, slurred speech, weakness or drooping of the face, or a sudden inability to walk or hold your balance Allergies/Adverse Reactions: Allergies No Known Allergies Allergy (Verified 07/04/18 10:22) Medications to take at Discharge Ferrous Gluconate 325 mg PO BIDCM 05/15/18 Pnv No.95/Ferrous Fum/Folic AC [ Formula Tablet] 1 each PO DAILY 05/15/18 Ibuprofen 600 mg PO 4X/DAY #30 tab 07/11/18 Oxycodone [Oxyir] 5 - 10 mg PO Q4H PRN PRN 7 Days #28 tab 07/11/18 The following prescriptions were given: Oxycodone [Oxyir] 5 - 10 mg PO Q4H PRN PRN 7 Days #28 tab PRN Reason: Mod-Severe Pain (-04/25) Ibuprofen 600 mg PO 4X/DAY #30 tab Follow-Up: Call to make an appointment with your doctor for an incision check in 1-2 weeks. You will also need a 6 week post- follow up appointment. Test results from this visit will be discussed in further detail at your follow-up appointment, if applicable. Please Follow Up With: Agustin Cole MD When: one week Primary Care Physician: Care Physician,No Primary [Primary Care Provider] - Proposed Discharge Date: 07/14/18 07/11/182305 <Electronically signed by Agustin Cole MD> Date Agustin Cole MD CC: No Primary Care Physician Signed PLACENTA Observed: 07/11/2018 Status: F Source: [facility] 9:45 PM [facility] REPOSITORY Patient: KEYON GALVEZ : 1990 () Acct Num: [id number] Phys: Kelsey CAGE,Agustin Unit Num: [id number] Loc: WP [id number] Specimen: [id number] Received: 07/12/1839 Spec Type: PLACENTA TISSUES 1 TISSUES: Placenta, NOS GROSS DESCRIPTION SPECIMEN: TWIN PLACENTA The specimen consists of two placental discs with attached two umbilical cords, dividing membrane and peripheral membranes. The umbilical cords are not designated as to baby A or baby B. They are arbitrarily assigned A and B. / CLINICAL INFORMATION: A. Weight: A - 3.257 kg; B - 3.255 kg B. Gestational Age: 37 weeks C. Sex: A - Female, B - Female PLACENTA A: PLACENTAL WEIGHT (POST FIXATION): 562 gm PLACENTAL DIMENSIONS: 20 x 18 x 3 cm PLACENTAL SHAPE: Usual ovoid PLACENTAL WEIGHT FOR GESTATIONAL AGE: Within 10-99th percentile MEMBRANES - Present A. Insertion: Marginal B. Site of rupture from edge: at edge of placental disc C. Color of membrane: Light luna D. Abnormalities: None UMBILICAL CORD - Present A. Color: Luna-morales B. Insertion: Eccentric C. Length: 34 cm D. Diameter: 1.7 cm E. Number of vessels: Three F. Abnormalities: None Physical manipulation of the dividing membrane reveals four distinct membranes. PLACENTA B: PLACENTAL WEIGHT (POST FIXATION): 507 gm PLACENTAL DIMENSIONS: 19 x 13 x 3.5 cm PLACENTAL SHAPE: Usual ovoid PLACENTAL WEIGHT FOR GESTATIONAL AGE: Within 10-99th percentile MEMBRANES - Present A. Insertion: Marginal B. Site of rupture from edge: at edge of placental disc C. Color of membrane: Luna-morales D. Abnormalities: None UMBILICAL CORD - Present A. Color: Luna-morales B. Insertion: Marginal C. Length: 31 cm D. Diameter: 1.5 cm E. Number of vessels: Three F. Abnormalities: None PLACENTAL DISC - Present A. Color of surface: Luna-morales B. surface abnormalities: None C. Maternal cotyledons: Intact with minimal tears D. Attached retro placental clot: No clot E. Cut surface: Dark red and spongy F. Lesions: None G. Separate clot: Absent SECTIONS SUBMITTED: 9 cassettes 1. Dividing membrane 2. Umbilical cord and membranes side A 3. Placental disc designated A 4. Placental disc designated A 5. Placental disc designated A 6. Umbilical cord and membranes side B 7. Placental disc designated B 8. Placental disc designated B 9. Placental disc designated B AM:mary jane 07/13/18 TC:5 CPT: 67918 x2 HEADER OPERATION: Primary section PRE-OP DIAGNOSIS: Twin TISSUE SUBMITTED: Placenta MICROSCOPIC DESCRIPTION Slides are reviewed. MICROSCOPIC DIAGNOSIS Twin placenta: Dichorionic and diamniotic twin placenta. Placenta A: Placental disc - third trimester placenta (562 gm). - Focal villous congestion. Membranes - no pathologic diagnosis. Umbilical cord - three blood vessels and no pathologic diagnosis. Placenta B: Placental disc - third trimester placenta (507 gm). - Focal villous congestion. Membranes - no pathologic diagnosis. Umbilical cord - three blood vessels and no pathologic diagnosis. SJ:mary jane 07/16/18 Signed Ezequiel Gonzalez MD 07/16/18 <signature on file> Performed By: #### PPLAC #### [facility] [address] [place], [place], [address] CBC-COMPLETE BLOOD CNT Collected: 07/11/2018 Status: F Source: [place] NO DIFF 7:45 AM [facility] REPOSITORY TYPE CODE TESTS RESULT OUT OF RANGE REFERENCE UNITS LAB L100.1000 4.4-11.0 K/mm3 Normal WBC 6.4 LAB L100.1200 4.2-5.4 M/mm3 Low RBC 3.54 LAB L100.1300 12.0-15.0 g/dl Low HGB 10.8 LAB L100.1400 37-47 % Low HCT 33.3 LAB L100.1500 81-99 fL Normal MCV 94.1 LAB L100.1600 27.0-32.0 pg Normal MCH 30.5 LAB L100.1700 32-36 g/gl Normal MCHC 32.4 LAB L100.1810 11.6-14.6 % High RDW CV 14.9 LAB L100.1820 35.1-43.9 fl High RDW SD 49.2 LAB L100.1900 150-450 K/mm3 Normal PLT 164 LAB L100.2000 6.2-12.0 fl Normal MPV 11.5 Performed By: #### L100.0500 #### [facility] [address] [place], [place], [address] TYPE AND SCREEN Collected: 07/11/2018 Status: F Source: [place] 7:45 AM [facility] REPOSITORY Order Comment: Reason for Type AND Screen/Red Cells: TYPE CODE TESTS RESULT OUT OF RANGE REFERENCE UNITS LAB B10.0800 O Normal BLOOD TYPE GEL POSITIVE LAB B100.4000 Normal Antibody NEGATIVE Screen Performed By: #### B101.7450 #### [facility] [address] [facility] [place], [address] PATHOLOGY SPECIMEN OB Collected: 07/11/2018 Status: F Source: [place] 6:50 AM [facility] REPOSITORY Order Comment: Reason for Laboratory Test Placenta for Lab studies Send Specimen For (Specify): Studies @ [facility] Lab:Routine Time of Procedure: 2229 Date of Procedure: 07/11/18 Reason specimen being sent to pathology (Hx/complications): twin Type of specimen: Placenta Type of procedure performed: Primary Section TYPE CODE TESTS RESULT OUT OF RANGE REFERENCE UNITS LAB L350.1800 SEE Normal PATH. PATHOLOGY Spec. OB REPORT Result Comment: Specimen submitted to Anatomical Pathology Department for testing. Performed By: #### L350.1800 #### [facility] [address] [facility] [place], [address] Observed: 06/20/2018 Status: F Source: [place] CULTURE, GROUP B 3:30 PM [facility] REPOSITORY Comments: VAGINAL/RECTAL CAROL Culture Group B Beta Streptococcus is not isolated. Performed By: #### M100.1800 #### [facility] [address] [place], [address] EMERGENCY DEPARTMENT Observed: 05/15/2018 Status: F Source: [place] SUMMARY 4:09 PM [facility] REPOSITORY [facility] Medical Records Department [address] [facility] [place] [address] Emergency Department Summary 05/15/18 1604 MR#: [id number] Acct: [id number] Name: KEYON GALVEZ Rep #: [id number] : 1990 28 From: Yoshi Denney MD [...] 500 mg to treat her cystitis. Her doughnut machine operator/ship officer Dr. Agustin Cole was paged to inform him of patient's urine results and need to follow-up urine culture. Treatment Plan: Treat cystitis and hyperemesis with cephalexin and Zofran ODT Disposition: Discharged to home in stable and improved condition Impression: 1. Hyperemesis gravidarum 2. Ketosis 3. Cystitis This note was generated with [employer] dictation software. It may contain incorrect words, [...] problems, contact your Primary Care Provider. Call [facility] ([phone]) or report to the closest Emergency Room. Call 911 if necessary. 05/15/18 1609 <Electronically signed by Yoshi Denney MD> Date Yoshi Denney MD Cosigner Signature (If Indicated): Date CC: No Primary Care Physician; Agustin Cole MD URINALYSIS, COMPLETE Collected: 05/15/2018 Status: F Source: [facility] 2:10 PM [facility] REPOSITORY Order Comment: Order Date: 05/15/18 How [...] URINE SEEN Performed By: #### L400.0001 #### [facility] [place] [facility] [address] [place], [address] Observed: 05/15/2018 Status: F Source: [facility] CULTURE, URINE 2:10 PM [facility] REPOSITORY Urine Culture Below infection level. ORGANISM 1: Mixed Gram Positive Organisms Big Bar Count 1000-10,000 Performed By: #### M100.0650 #### [facility] [address] [facility] [place], [address] GLUCOSE CHALLENGE GEST Collected: 05/01/2018 Status: F Source: [place] 1H 50G 2:03 PM [facility] REPOSITORY TYPE CODE TESTS RESULT OUT OF RANGE REFERENCE UNITS LAB L501.0250 70-140 mg/dL Normal GLU GEST 110 50g 1H Performed By: #### L501.0250 #### [facility] [address] [facility] [place], [address] CBC-COMPLETE BLOOD CNT Collected: 05/01/2018 Status: F Source: [place] NO DIFF 2:03 PM [facility] REPOSITORY TYPE CODE TESTS RESULT OUT OF [...] MPV 9.9 Performed By: #### L100.0500 #### [facility] [address] [facility] [place], [address] DOWNTIME REPORT Observed: 01/04/2018 Status: F Source: [place] 2:01 PM [facility] REPOSITORY [facility] Medical Records Department [address] [place] [address] Downtime Report MR#: [id number] Acct: [id number] Name: KEYON GALVEZ Rep #: [id number] : 1990 27 From: Hung Barclay PCP: Status: REG CLI This patient was seen during an EMR downtime December 18, 2017 - December 25, 2017. This patient may have a combination of paper and electronic documentation or all paper documentation. All documentation is viewable within the e-chart portion of [facility] for each patient visit. T AND S-NO Collected: 12/21/2017 Status: F Source: [place] W/PNP 3:05 PM [facility] REPOSITORY Order Comment: RESULT(S) PREVIOUSLY REPORTED ON MANUAL REQUISITION DURING DOWNTIME. Reason for Type AND Screen/Red Cells: Surgery? N TYPE CODE TESTS RESULT OUT OF RANGE REFERENCE UNITS LAB B10.0800 O Normal BLOOD POSITIVE TYPE GEL LAB B100.4050 Normal Ab SCREEN NEGATIVE GEL Performed By: #### B100.7550 #### [facility] [address] [place], [address] URINE DRUG SCREEN Collected: 12/21/2017 Status: P Source: [place] (VISTA) 3:05 PM [facility] REPOSIT[facility] Order Comment: List of Drugs Taken [...] UTCA Performed By: #### L505.5000, L505.6240 #### [facility] [address] [place], [address] NICOTINE URINE DRUG Collected: 12/21/2017 Status: P Source: [place] SCREEN 3:05 PM [facility] REPOSIT[facility] Order Comment: List of Drugs Taken [...] Nicotine. Performed By: #### L505.5000, L505.6240 #### [facility] [address] [facility]. [place], [place], [id number] RPR Collected: 12/21/2017 Status: F Source: [place] 3:05 PM [facility] REPOSITORY TYPE CODE TESTS RESULT OUT OF REFERENCE UNITS RANGE LAB L700.5100 NONREACTIVE Normal RPR NONREACTIVE Performed By: #### L700.5100 #### [facility] [address] [place], [place], [address] RUBELLA IGG Collected: 12/21/2017 Status: F Source: [place] 3:05 [facility] REPOSITORY TYPE CODE TESTS RESULT OUT OF RANGE REFERENCE UNITS LAB L509.4000 IU/mL Normal Rubella IgG 7.5 Result Comment: Antibody results Interpretation of Immune Status < 5 IU/ml Presumed Non-immune 5 - < 10 IU/ml Equivocal > or = 10 IU/ml Presumed Immune Performed By: #### L509.4000, L3890.6005 #### [facility] [address] [place], [place], [address] HIV - [facility] Collected: 12/21/2017 Status: F Source: [place] 3:05 [facility] REPOSITORY TYPE CODE TESTS RESULT OUT OF RANGE REFERENCE UNITS LAB L3890.6005 Nonreactive Normal HIV - [facility] Non-Reactive Performed By: #### L509.4000, L3890.6005 #### [facility] [address] [facility], [address] CBC W/DIFF, AUTOMATED Collected: 12/21/2017 Status: F Source: [place] 3:05 PM [facility] REPOSITORY TYPE CODE TESTS RESULT OUT OF [...] not performed Performed By: #### L100.0100 #### [facility] [address] [facility]. [place], [place], [address] URINALYSIS, ROUTINE Collected: 12/21/2017 Status: F Source: [place] (DIPSTICK) 3:05 PM [facility] REPOSIT[facility] Order Comment: How was Urine Obtained? [...] High LEUK ESTERASE 500 Performed By: #### L400.2010 #### [facility] [address] [facility]. [place], [place], [address] THYROID STIM HORMONE Collected: 12/21/2017 Status: F Source: [place] (TSH) 3:05 PM [facility] REPOSITORY Order Comment: RESULT(S) PREVIOUSLY REPORTED ON MANUAL REQUISITION DURING DOWNTIME. TYPE CODE TESTS RESULT OUT OF RANGE REFERENCE UNITS LAB L501.9520 0.358-3.74 uIU/mL Normal TSH 1.45 Performed By: #### L501.9520 #### [facility] [address] [place], [place], [address] HEPATITIS B SURFACE Collected: 12/21/2017 Status: F Source: [place] AG 3:05 PM [facility] REPOSITORY Order Comment: Specimen Comment: A duplicate report has been generated due to demographic Specimen Comment: updates. TYPE CODE TESTS RESULT OUT OF RANGE REFERENCE UNITS LAB L3100.0400 Negative Normal HB Negative SURF AG Result Comment: Performed at: [address] [id number] Proof Load Mechanic: Anibal Barrera PhD, Phone: [phone] Performed By: #### L3100.0390, L3100.0625 #### [facility] (refer to report for specific site) refer to report for address and phone number HEPATITIS C ANTIBODIES Collected: 12/21/2017 Status: F Source: [place] 3:05 PM [facility] REPOSIT[facility] Order Comment: Specimen Comment: A duplicate [...] with a HCV Nucleic Acid Amplification test ([id number]). Performed By: #### L3100.0390, L3100.0625 #### [facility] (refer to report for specific site) refer to report for address and phone number TYPE AND SCREEN Collected: 12/21/2017 Status: F Source: [place] 3:05 PM [facility] REPOSIT[facility] Order Comment: RESULT(S) PREVIOUSLY REPORTED ON MANUAL REQUISITION DURING DOWNTIME. Reason for Type AND Screen/Red Cells: TYPE CODE TESTS RESULT OUT OF RANGE REFERENCE UNITS LAB B10.0800 O Normal BLOOD TYPE GEL POSITIVE LAB B100.4000 Normal Antibody NEGATIVE Screen Performed By: #### B101.7450 #### [facility] [address] [place], [address] CT/NG [facility] BY PCR Collected: 12/08/2017 Status: F Source: [place] 2:16 PM [facility] REPOSITORY TYPE CODE TESTS RESULT OUT OF RANGE REFERENCE UNITS LAB L8200.2100 Negative Normal Chlam Negative Trac PCR LAB L8200.2200 Negative Normal NG by Negative PCR Performed By: #### L8200.2000 #### [facility] [address] [place], [address] PAP I-G W/RFX HRHPV Collected: 12/08/2017 Status: F Source: [place] 2:16 PM [facility] REPOSIT[facility] Order Comment: CYTOLOGY INFORMATION: - CLINICAL INFORMATION: - DATE LMP/MENOPAUSE: 10/08/17 LMP - COLLECTION VIAL: Thin Prep Vial - FREIGHT SOLICITOR SOURCE: CERVICAL/ENDOCERVICAL - COLLECTION TECHNIQUE: BRUSH/SPATULA Specimen Comment: [id number] Specimen Comment: No. of containers..01 ThinPrep Vial TYPE CODE TESTS RESULT OUT OF RANGE REFERENCE UNITS LAB L7400.0800 . Normal DIAGN Comment Result Comment: NEGATIVE FOR INTRAEPITHELIAL LESION AND MALIGNANCY. LAB L7400.0900 . Normal ADEQ Comment Result Comment: Satisfactory for evaluation. Endocervical and/or squamous metaplastic cells (endocervical component) are present. LAB L7400.1400 . Normal PERFORM Comment Result Comment: Kortney Mi, Oil Pipe Inspector (ASCP) LAB L7400.2575 . Normal TEST METHOD [...] no HPV testing was performed. Performed at: [facility] Lab[facility] [id number] Proof Load Mechanic: Lanette Leach MD, Phone: [phone] Performed By: #### L7400.0350 #### [facility] (refer to report for specific site) refer to report for address and phone number ALLERGIES ALLERGIES DATE TYPE / CODE NAME / CODE REACTION SEVERITY SOURCE 07/04/2018 Drug No Known [facility]4160 Allergies/F00 Hospital [address]484(SNOMED 3350577(RXNOR Repository CT) M) ENCOUNTERS ENCOUNTERS ADMIT/DISCHARGE ACCOUNT NUMBER ADMITTING ENCOUNTER LOCATION SOURCE CLASS 07/11/2018/07/15/20 [id number] Agustin Cole Inpatient [place] [address] Encounter [facility] ding:WPRoom: Repository [id number]: 1 07/07/2018/07/07/20 [id number] Ambulatory [address] ding:WPOUTRo Repository om: WP013 07/04/2018/07/04/20 [id number] Ambulatory [address] ding:WPOUTRo Repository om: OBT02 06/30/2018/06/30/20 [id number] Ambulatory [address] ding:WPOUTRo Repository om: WP012 06/27/2018/06/27/20 [id number] Ambulatory [address] ding:WPOUTRo Repository om: WP020 06/23/2018/06/23/20 [id number] Ambulatory [address] ding:WPOUTRo Repository om: WP015 06/20/2018 [id number] Ambulatory [facility] ding:LABSPEC Repository 06/20/2018/06/20/[id number] ding:WPOUTRo Repository om: WP012 06/16/2018/06/16/20 [id number] Ambulatory [address] ding:WPOUTRo Repository om: WP011 06/13/2018/06/13/20 [id number] Ambulatory [facility] [place] ding:WPOUTRo Repository om: WP011 06/09/2018/06/09/20 [id number] [facility] ding:WPOUTRo Repository om: WP012 06/06/2018/06/06/20 [id number] [facility] [address] [place] [address] ding:WPOUTRo Repository om: WP013 05/15/2018/05/15/20 [id number] Emergency [facility] ding:ED Repository 05/01/2018 [id number] [facility] ding:WOBL[facility] Repository 12/21/2017 [id number] Ambulatory [facility] ding:WOBLAB Repository 12/18/2017/12/19/[id number] System :[facility] Repository 12/08/2017 [id number] Ambulatory [facility] ding:LABSPEC Repository PAYERS PAYERS ENCOUNTER GUARANTOR PAYER SUBSCRIBER SOURCE 07/11/2018 KEYON REYES Primary KEYON REYES [place] [id number] [place] Insurance:ANTHEMPolic MURRAYDOB: Critical access hospital Number: [id number] Hospital [address]6782Frc: [phone]) [id number] Repository [phone] () Date:5545-32-60CX [address] [place] [address]YP: 07/11/2018 Secondary NOT GIVENUNK [place] Insurance:SELF PAY [facility] Number: Effective Repository Date:2018-07-04 07/07/2018 KEYON Stringer Primary KEYON Stringer [facility] [id number] [place] Insurance:ANTHEMPolic [place]UR[place]DOB: [place] Number: [id number] Hospital [address]Vuz: [phone]) [id number] Repository [phone] () Date:4213-79-34GU [address] [place] [address] 98991EX: 07/07/2018 Secondary NOT GIVENUNK [facility] Insurance:SELF PAY [facility] Number: Effective Repository Date:2018-07-07 07/04/2018 KEYON Stringer Primary KEYON Stringer [facility] [id number] [place] Insurance:ANTHEMPolic [place]UR[place]DOB: [place] Number: [id number] Hospital [address]Ark: (782) [id number] Repository [phone] () Date:8076-13-91IE [address] [place] [address] 14684FD: 07/04/2018 Secondary NOT GIVENUNK [place] Insurance:SELF PAY [facility] Number: Effective Repository Date:2018-07-04 06/30/2018 KEYON Stringer Primary KEYON Stringer [place] [id number] [place] Insurance:ANTHEMPolic MURRAYDOB: [place] Number: [id number] Hospital [address]Bry: [phone]) [id number] Repository [phone] () Date:3081-42-69VL [id number] [place] [address]OG: 06/30/2018 Secondary NOT GIVENUNK [facility] Insurance:SELF PAY [facility] Number: Effective Repository Date:2018-06-30 06/27/2018 KEYON Stringer Primary KEYON Stringer [place] [id number] [place] Insurance:ANTHEMPolic [place]UR[place]DOB: [place] Number: [id number] Hospital 91945Jyi: (185) [id number] Repository [phone] () Date:2430-57-16AT [id number] [place] [address] 14425LH: 06/27/2018 Secondary NOT GIVENUNK [place] Insurance:SELF PAY [facility] Number: Effective Repository Date:2018-06-27 06/23/2018 KEYON Stringer Primary KEYON M [place] [id number] [place] Insurance:ANTHEMPolic [place]UR[place]DOB: [place] Number: [id number] [facility] 13[address]Hir: (612) [id number] Repository [phone] () Date:2222-74-21[address]VB[place], [place] [address]RN: 06/23/2018 Secondary NOT GIVENUNK [place] Insurance:SELF PAY [facility] Number: Effective Repository Date:2018-06-23 06/20/2018 KEYON Stringer Primary KEYON M [place] [id number] [place] Insurance:ANTHEMPolic MURRAYDOB: [place] [facility] Number: [id number] Hospital 139[address]Fjz: (937) [id number] Repository [phone] () Date:3684-80-14XZ [address]NKJDEJX, [place] [address]TL: 06/20/2018 Secondary NOT GIVENUNK [place] Insurance:SELF PAY [facility] Number: Effective Repository Date:2018-06-20 06/20/2018 KEYON M Primary KEYON Siomara [facility] [id number] [place] Insurance:ANTHEMPolic MURRAYDOB: [facility] [place]: [id number] Hospital [address]Mxd: (937 [id number] Repository [phone] () Date:3438-76-20LC [address]WTJ[place], [place] [address]FE: 06/20/2018 Secondary NOT GIVENUNK [place] Insurance:SELF PAY [facility] Number: Effective Repository Date:2018-06-20 06/16/2018 KEYON M Primary KEYON Siomara [facility] [id number] [place] Insurance:ANTHEMPolic MURRAYDOB: [facility] [place] Number: [id number] Hospital [address]Fxh: (937 [id number] Repository [phone] () Date:9851-09-34U[address]BTW, [place] [address]DN: 06/16/2018 Secondary NOT GIVENUNK [place] Insurance:SELF PAY [facility] Number: Effective Repository Date:2018-06-16 06/13/2018 KEYON M Primary KEYON M [place] [id number] [place] Insurance:ANTHEMPolic MURRAYDOB: [facility] Number: [id number] Hospital [address]Eih: [phone] [id number] Repository [phone] (HP) Date:9011-16-14MN [address]YUBHG [place] [address]UJ: 06/13/2018 Secondary NOT GIVENUNK [facility] Insurance:SELF PAY [facility] Number: Effective Repository Date:2018-06-13 06/09/2018 KEYON M Primary KEYON M [place] [id number] [place] Insurance:ANTHEMPolic MURRAYDOB: [facility] Number: [id number] Hospital [address]Mri: [phone] [id number] Repository [phone] () Date:3482-92-03MG [address] [place] [address] [place] [address]JU: 06/09/2018 Secondary NOT GIVENUNK [place] Insurance:SELF PAY [facility] Number: Effective Repository Date:2018-06-09 06/06/2018 KEYON M Primary KEYON M [facility] [id number] [place] Insurance:ANTHEMPolic [facility]URRAYDOB[facility] [place] Number: [id number] Hospital [address]Wyx: (937 [id number] Repository [phone] () Date:2747-36-17EG [id number] [place] [address]BN: 06/06/2018 Secondary NOT GIVENUNK [place] Insurance:SELF PAY [facility] Number: Effective Repository Date:2018-06-06 05/15/2018 KEYON M Primary KEYON M [place] [id number] [place] Insurance:ANTHEMPolic [facility] [place] Number: [id number] Hospital [address]Ham: (937 [id number] Repository [phone] () Date:6157-24-74PF [address]DBVBCTU [place] [address]WH: 05/15/2018 Secondary NOT GIVENUNK [facility] Insurance:SELF PAY [facility] Number: Effective Repository Date:2018-05-15 05/01/2018 KEYON Primary KEYON [place] [id number] [place] Insurance:ANTHEMPolic MURRAYDOB: [place] Number: [id number] Hospital [address]Sqa: . () [id number] Repository Date:6436-89-72WD [address] [place] [address]SS: 05/01/2018 Secondary NOT GIVENUNK [place] Insurance:SELF PAY [facility] Number: Effective Repository Date:2018-05-01 12/21/2017 KEYON Primary KEYON [place] [id number] [place] Insurance:ANTHEMPolic MURRAYDOB: [place] Number: [id number] Hospital [address]Rjf: . () [id number] Repository Date:9544-50-59WB [address]ZFXSW, [place] [address]XK: 12/21/2017 Secondary NOT GIVENUNK [facility] Insurance:SELF PAY [facility] Number: Effective Repository Date:2017-12-21 12/08/2017 KEYON Primary KEYON [facility] [id number] [place] Insurance:ANTHEMPolic MURRAYDOB: [place] Number: [id number] Hospital [address]Zgd: . () [id number] Repository Date:0928-33-05MA [address]WJRZUST, [place] [address]NU: 12/08/2017 Secondary NOT GIVENUNK [place] Insurance:SELF PAY [facility] Number: Effective Repository Date:2017-12-08
== END 2018-06-27 16:15 | disposition home or self-care (01) ==
LOC: WPOUT 15:00 → WP 15:01
PROVIDERS: Referring Provider Obstetrics & Gynecology; Visit Provider Obstetrics & Gynecology
DX: O30.003 Twin pregnancy, unspecified number of placenta and unspecified number of amniotic sacs, third trimester (principal); Z3A.35 35 weeks gestation of pregnancy
CPT/HCPCS: 59025

== ENCOUNTER 2018-06-30 09:50 | Outpatient (CLI) | payer BC, SELFPAY ==
[2018-06-30 10:53] VITALS: BMI 35.3
--- NOTE | 2018-06-30 17:04 | OB.TRI.NOTE ---
- Problem List (1) Twin gestation in third trimester Status: Chronic Qualifiers: Multiple gestation type: dichorionic and diamniotic Qualified Code(s): O30.043 - Twin , dichorionic/diamniotic, third trimester History of Present Illness Date of Service: 06/30/18 Was patient seen by the physician?: No Reason For Visit: NST for third trimester twins Date of Service: 06/30/18 Final CHEN: 07/30/18 Final CHEN Source: US <20 weeks Gestational age: 35 Weeks and 5 Days History of Present Illness: Uncomplicated di-di twin Allergies No Known Allergies Allergy (Verified 06/23/18 10:06) Physical Exam General: Alert, Oriented x3, Cooperative, No apparent distress Cardiovascular: Regular rate, Regular Rhythm Lungs: Clear to auscultation, Normal air movement Abdomen: Soft, Non Tender, Non-Distended, Gravid, - - LGA (twins) Neurological: Neuro grossly intact POTABLE WATER TREATMENT OPERATOR: Normal external genitalia Estimated gestational size: Large for gestational age - twins Presentation: Cephalic NST - FHR Rate Baby A Baseline: 120s Variability:: Moderate Accelerations:: 15 x 15 Decelerations:: None NST Reactive:: Yes, Appropriate for gestational age FHR Category:: Category I Uterine Activity:: Irregular - FHR Rate Baby B Baseline: 120s Variability:: Moderate Accelerations:: 15 x 15 Decelerations:: None NST Reactive:: Yes, Appropriate for gestational age FHR Category:: Category I Uterine Activity:: irregular Impression/Plan Reassuring FHR tracing for third trimester twins gestation.
--- NOTE | 2018-06-30 17:08 | OB.TRI.HP_ITS ---
- Problem List (1) Twin gestation in third trimester Status: Chronic Qualifiers: Multiple gestation type: dichorionic and diamniotic Qualified Code(s): O30.043 - Twin , dichorionic/diamniotic, third trimester History of Present Illness Date of Service: 06/30/18 Was patient seen by the physician?: No Reason For Visit: NST for third trimester twins Date of Service: 06/30/18 Final CHEN: 07/30/18 Final CHEN Source: US <20 weeks Gestational age: 35 Weeks and 5 Days History of Present Illness: Uncomplicated di-di twin Allergies No Known Allergies Allergy (Verified 06/23/18 10:06) Physical Exam General: Alert, Oriented x3, Cooperative, No apparent distress Cardiovascular: Regular rate, Regular Rhythm Lungs: Clear to auscultation, Normal air movement Abdomen: Soft, Non Tender, Non-Distended, Gravid, - - LGA (twins) Neurological: Neuro grossly intact EMPLOYMENT TRAINING SPECIALIST: Normal external genitalia Estimated gestational size: Large for gestational age - twins Presentation: Cephalic NST - FHR Rate Baby A Baseline: 120s Variability:: Moderate Accelerations:: 15 x 15 Decelerations:: None NST Reactive:: Yes, Appropriate for gestational age FHR Category:: Category I Uterine Activity:: Irregular - FHR Rate Baby B Baseline: 120s Variability:: Moderate Accelerations:: 15 x 15 Decelerations:: None NST Reactive:: Yes, Appropriate for gestational age FHR Category:: Category I Uterine Activity:: irregular Impression/Plan Reassuring FHR tracing for third trimester twins gestation.
--- OUTSIDE RECORDS SUMMARY | 2018-10-03 09:21 | XMS RPT_ITS ---
:1990 Author Organization OHIP Support Name Relationship Address Phone JULIO C GALVEZ Unavailable [address] + [place] [address] [facility] Unavailable [address] + [place] [address] [place] [place] Unavailable [address] + [place] [address] [facility] Unavailable [address] + [place] [address] [place] [place] Unavailable [address] + [place] [address] [facility] Unavailable [address] + [place] [address] [facility] Unavailable [address] + [place] [address] [facility] Unavailable [address] + [place] [address] [place] [place] Unavailable [address] + [place] [address] [facility] Unavailable [address] + [place] [address] [facility] Unavailable [address] + [place] [address] [facility] Unavailable [address] + [place] [address] [facility] Unavailable [address] + [place] [address] [facility] Unavailable [address] + [place] [address] [place] [place] Unavailable [address] + [place] [address] [facility] Unavailable [address] + [place] [address] [place] [place] Unavailable [address] + [place] [address] [facility] Unavailable [address] + [place] [address] [place] Unavailable [address] + [place] [address] [facility] Unavailable [address] + [place] [address] [facility] Unavailable [address] + [place] [address] [facility] Unavailable [address] + [place] [address] [facility] Unavailable [address] + [place] [address] [facility] Unavailable [address] + [place] [address] [facility] Unavailable [address] + [place] [address] [facility] Unavailable [address] + [place] [address] [facility] Unavailable / +. [place], [place] [...] Primary Care Unavailable Seals, Agustin Attending Unavailable Denney, Yoshi Attending Unavailable Primay Care Physicia, No Primary Care Unavailable Seals, Agustin Attending Unavailable Seals, Agustin Referring Unavailable Primay Care Physicia, No Primary Care Unavailable Seals, Agustin Attending Unavailable Seals, Agustin Referring Unavailable Primay Care Physicia, No Primary Care Unavailable Weeman, Allan Attending Unavailable WeemanAllan Referring Unavailable Primay Care Physicia, No Primary Care Unavailable Seals, Agustin Attending Unavailable Primay Care Physicia, No Primary Care Unavailable Seals, Agustin Attending Unavailable Seals, Agustin Referring Unavailable Primay Care Physicia, No Primary Care Unavailable BenekosTran Attending Unavailable Tran Koroma Referring Unavailable Primay Care Physicia, No Primary Care Unavailable Seals, Agustin Attending Unavailable Seals, Agustin Referring Unavailable Primay Care Physicia, No Primary Care Unavailable Seals, Agustin Attending Unavailable Seals, Agustin Referring Unavailable Primay Care Physicia, No Primary Care Unavailable Seals, Agustin Attending Unavailable Seals, Agustin Attending Unavailable Jagruti, Summer Attending Unavailable Jagruti, Summer Referring Unavailable Primay Care Physicia, No Primary Care Unavailable PROBLEMS PROBLEMS DATE TYPE CONDITION / CODE ATTENDING STATUS SOURCE 07/15/2018 Unknown O30.003 - Twin Sealpiter, Agustin Active [place] , Community unspecified number Hospital of placenta and Repository unspecified number of amniotic sacs, third trimester / O30.003(ICD-10) 07/15/2018 Unknown G89.18 - Other acute Seals, Agustin Active [facility] postprocedural pain Community / G89.18(ICD-10) Hospital Repository 06/20/2018 Unknown Z36.85 - Encounter Seals, Agustin Active [facility] for Community screening for Hospital Streptococcus B / Repository Z36.85(ICD-10) 05/01/2018 Unknown O30.042 - Twin Seals, Agustin Active [place] , [facility] dichorionic/diamniot Hospital , second trimester Repository / O30.042(ICD-10) 12/08/2017 Unknown Z12.4 - Encounter Seals, Agustin Active [facility] for screening for Community malignant neoplasm Hospital of cervix / Repository Z12.4(ICD-10) 12/08/2017 Unknown Z11.3 - Encounter Seals, Agustin Active [facility] for screening for Community infections with a Hospital predominantly sexual Repository mode of transmission / Z11.3(ICD-10) PROCEDURES PROCEDURES No Procedure Records FoundRESULTS RESULTS DISCHARGE SUMMARY Observed: 07/17/2018 Status: F Source: [place] 10:55 AM [facility]PITAL REPOSITORY [facility] Medical Records Department [address] [place] [address] Discharge Summary 07/17/18 1048 MR#: [id number] Acct: [id number] Name: KEYON GALVEZ Rep #: [id number] : 1990 28 From: Tran Koroma MD PCP: Care Physician, No Primary Status: DIS IN Y Location: [id number] Discharge Date and Diagnosis Date of Admission: [...] Provider] - Please Follow Up With: Agustin Coel MD When: one week Medical Necessity - Tobacco Use Smoking Status: Former smoker Meaningful Use Info Meaningful Use Diagnoses (Choose all that apply): None applicable 07/17/18 1055 <Electronically signed by Tran Koroma MD> Date Tran Koroma MD Cosigner Signature (if applicable): Date CC: No Primary Care Physician; Tran Koroma MD Signed OPERATIVE REPORT Observed: 07/12/2018 Status: F Source: [place] 8:16 AM [facility] [place] [place] REPOSITORY [facility] Medical Records Department [address] [place] [address] Operative Report 07/11/18 2155 MR#: [id number] Acct: [id number] Name: KEYON GALVEZ Rep #: [id number] : 1990 28 From: Agustin Cole MD PCP: Care Physician, No Primary Status: ADM IN Location: [id number] Report of Operation Date of Procedure: 07/11/18 Pre-Operative Diagnosis: Arrest of Descent in sSecond Stage of Labor with Twin Post-Operative Diagnosis: Same Surgery/Procedure Performed:: Primary Low Transverse Section Description of Surgical Findings:: Normal appearing uterus, ovaries, and fallopian tubes. Baby A in vertex occiput posterior position weighing 4bru0rg. Twin B in vertex presentation wieghing 7lb3oz. Apgars were 9/9 for both babies. general science teacher: Maritza Junior Type of Anesthesia:: Epidural Anesthesiologist: [...] facial defect was then grasped with two Hso clamps, elevated and the rectus muscles dissected off with sharp and blunt dissection. In a similar fashion the rectus fl3vxflx were dissected off the lower fascial defect. [...] F Source: [place] NO DIFF 6:13 AM [facility] [place] [place] REPOSITORY Order Comment: Comments: Day #1 Reason [...] MPV 10.8 Performed By: #### L100.0500 #### [facility] [address] [place], [address] DISCHARGE INSTRUCTION Observed: 07/11/2018 Status: F Source: [place] 11:06 PM [facility] [place] [place] REPOSITORY [facility] Medical Records Department [address] [place] [address] Instructions for Home/Discharge Instructions 07/11/18 2305 MR#: [id number] Acct: [id number] Name: KEYON GALVEZ Rep #: [id number] : 1990 28 From: Agustin Cole MD [...] 07/11/2018 Status: F Source: [place] 9:45 PM [facility] [place] [place] REPOSITORY Patient: KEYON GALVEZ : 1990 () Acct Num: [id number] Phys: Kelsey CAGE,Agustin Unit Num: [id number] Loc: WP [id number] Specimen: [id number] Received: 07/12/1839 Spec Type: PLACENTA TISSUES 1 [...] designated B AM:mary jane 07/13/18 TC:5 CPT: 32635 x2 HEADER OPERATION: Primary section PRE-OP DIAGNOSIS: [...] on file> Performed By: #### PPLAC #### [facility] [address] [place], [place], [address] CBC-COMPLETE BLOOD CNT Collected: 07/11/2018 Status: F Source: [place] NO DIFF 7:45 AM [facility] [place] [place] REPOSITORY TYPE CODE TESTS RESULT OUT OF [...] MPV 11.5 Performed By: #### L100.0500 #### [facility] [address] [place], [place], [address] TYPE AND SCREEN Collected: 07/11/2018 Status: F Source: [place] 7:45 AM [facility] [place] [place] REPOSITORY Order Comment: Reason for Type AND Screen/Red Cells: TYPE CODE TESTS RESULT OUT OF RANGE REFERENCE UNITS LAB B10.0800 O Normal BLOOD TYPE GEL POSITIVE LAB B100.4000 Normal Antibody NEGATIVE Screen Performed By: #### B101.7450 #### [facility] [address] [place], [address] PATHOLOGY SPECIMEN OB Collected: 07/11/2018 Status: F Source: [place] 6:50 AM [facility] [place] [place] REPOSITORY Order Comment: Reason for Laboratory Test Placenta for Lab studies Send Specimen For (Specify): Studies @ [facility] Lab:Routine Time of Procedure: 2229 Date of Procedure: 07/11/18 Reason specimen being sent to pathology (Hx/complications): twin Type of specimen: Placenta Type of procedure performed: Primary Section TYPE CODE TESTS RESULT OUT OF RANGE REFERENCE UNITS LAB L350.1800 SEE Normal PATH. PATHOLOGY Spec. OB REPORT Result Comment: Specimen submitted to Anatomical Pathology Department for testing. Performed By: #### L350.1800 #### [facility] [address] [place], [address] Observed: 06/20/2018 Status: F Source: [place] CULTURE, GROUP B 3:30 PM [facility] [place] [place] STREPTOCOCCUS REPOSITORY Comments: VAGINAL/RECTAL CAROL Culture Group B Beta Streptococcus is not isolated. Performed By: #### M100.1800 #### [facility] [address] [place], [address] EMERGENCY DEPARTMENT Observed: 05/15/2018 Status: F Source: [place] SUMMARY 4:09 PM [facility] [place] [place] REPOSITORY [facility] Medical Records Department [address] [facility] [place] [address] Emergency Department Summary 05/15/18 1604 MR#: [id number] Acct: [id number] Name: KEYON GALVEZ Rep #: [id number] : 1990 28 From: Yoshi Denney MD [...] 500 mg to treat her cystitis. Her manager property/consultants intern Dr. Agustin [place] was paged to inform him of patient's urine results and need to follow-up urine culture. Treatment Plan: Treat cystitis and hyperemesis with cephalexin and Zofran ODT Disposition: Discharged to home in stable and improved condition Impression: 1. Hyperemesis gravidarum 2. Ketosis 3. Cystitis This note was generated with [employer] dictation software. It may contain incorrect [...] problems, contact your Primary Care Provider. Call [facility] ([phone]) or report to the closest Emergency Room. Call 911 if necessary. 05/15/18 1609 <Electronically signed by Yoshi Denney MD> Date Yoshi Denney MD Cosigner Signature (If Indicated): Date CC: No Primary Care Physician; Agustin Cole MD URINALYSIS, COMPLETE Collected: 05/15/2018 Status: F Source: [place] 2:10 PM [facility] [place] [place] REPOSITORY Order Comment: Order Date: 05/15/18 How [...] L400.0001 #### [facility] [address] [place], [address] Observed: 05/15/2018 Status: F Source: [place] CULTURE, URINE 2:10 PM [facility] [place] [place] REPOSITORY Urine Culture Below infection level. ORGANISM 1: Mixed Gram Positive Organisms [place] Count 1000-10,000 Performed By: #### M100.0650 #### [facility] [address] [facility] [place], [address] GLUCOSE CHALLENGE GEST Collected: 05/01/2018 Status: F Source: [place] 1H 50G 2:03 PM [facility] [place] [place] REPOSITORY TYPE CODE TESTS RESULT OUT OF RANGE REFERENCE UNITS LAB L501.0250 70-140 mg/dL Normal GLU GEST 110 50g 1H Performed By: #### L501.0250 #### [facility] [address] [facility] [place], [address] CBC-COMPLETE BLOOD CNT Collected: 05/01/2018 Status: F Source: [place] NO DIFF 2:03 PM [facility] [place] [place] REPOSITORY TYPE CODE TESTS RESULT OUT OF [...] MPV 9.9 Performed By: #### L100.0500 #### [facility] [address] [facility] [place], [address] DOWNTIME REPORT Observed: 01/04/2018 Status: F Source: [place] 2:01 PM [facility] [place] [place] REPOSITORY [facility] Medical Records Department [address] [place] [address] Downtime Report MR#: [id number] Acct: [id number] Name: KEYON GALVEZ Rep #: [id number] : 1990 27 From: Hung Barclay PCP: Status: REG CLI This patient was seen during an EMR downtime December 18, 2017 - December 25, 2017. This patient may have a combination of paper and electronic documentation or all paper documentation. All documentation is viewable within the e-chart portion of [employer] for each patient visit. T AND S-NO Collected: 12/21/2017 Status: F Source: [place] CHARGE W/PNP 3:05 PM [facility] [place] [place] REPOSITORY Order Comment: RESULT(S) PREVIOUSLY REPORTED ON MANUAL REQUISITION DURING DOWNTIME. Reason for Type AND Screen/Red Cells: Surgery? N TYPE CODE TESTS RESULT OUT OF RANGE REFERENCE UNITS LAB B10.0800 O Normal BLOOD POSITIVE TYPE GEL LAB B100.4050 Normal Ab SCREEN NEGATIVE GEL Performed By: #### B100.7550 #### [facility] [address] [place], [address] URINE DRUG SCREEN Collected: 12/21/2017 Status: P Source: [place] (VISTA) 3:05 PM [facility] [place] [place] REPOSITORY Order Comment: List of Drugs Taken [...] UTCA Performed By: #### L505.5000, L505.6240 #### [facility] [address] [place], [address] NICOTINE URINE DRUG Collected: 12/21/2017 Status: P Source: [place] SCREEN 3:05 PM [facility] [place] [place] REPOSITORY Order Comment: List of Drugs Taken [...] Nicotine. Performed By: #### L505.5000, L505.6240 #### [facility] [address] [facility]. [place], [place], [address] RPR Collected: 12/21/2017 Status: F Source: [place] 3:05 PM [facility] [place] [place] REPOSITORY TYPE CODE TESTS RESULT OUT OF REFERENCE UNITS RANGE LAB L700.5100 NONREACTIVE Normal RPR NONREACTIVE Performed By: #### L700.5100 #### [facility] [address] [place], [place], [address] RUBELLA IGG Collected: 12/21/2017 Status: F Source: [place] 3:05 [facility] REPOSITORY TYPE CODE TESTS RESULT OUT OF RANGE REFERENCE UNITS LAB L509.4000 IU/mL Normal Rubella IgG 7.5 Result Comment: Antibody results Interpretation of Immune Status < 5 IU/ml Presumed Non-immune 5 - < 10 IU/ml Equivocal > or = 10 IU/ml Presumed Immune Performed By: #### L509.4000, L3890.6005 #### [facility] [address] [place], [place], [address] HIV - [facility] Collected: 12/21/2017 Status: F Source: [place] 3:05 [facility] REPOSITORY TYPE CODE TESTS RESULT OUT OF RANGE REFERENCE UNITS LAB L3890.6005 Nonreactive Normal HIV - [facility] Non-Reactive Performed By: #### L509.4000, L3890.6005 #### [facility] [address] [facility] [place], [address] CBC W/DIFF, AUTOMATED Collected: 12/21/2017 Status: F Source: [place] 3:05 PM [facility] [place] [place] REPOSITORY TYPE CODE TESTS RESULT OUT OF [...] not performed Performed By: #### L100.0100 #### [facility] [address] [facility]. [place], [place], [address] URINALYSIS, ROUTINE Collected: 12/21/2017 Status: F Source: [place] (DIPSTICK) 3:05 PM [facility] [place] [place] REPOSITORY Order Comment: How was Urine Obtained? [...] ESTERASE 500 Performed By: #### L400.2010 #### [facility] [address] [facility]. [place], [place], [address] THYROID STIM HORMONE Collected: 12/21/2017 Status: F Source: [place] (TSH) 3:05 PM [facility] [place] [place] REPOSITORY Order Comment: RESULT(S) PREVIOUSLY REPORTED ON MANUAL REQUISITION DURING DOWNTIME. TYPE CODE TESTS RESULT OUT OF RANGE REFERENCE UNITS LAB L501.9520 0.358-3.74 uIU/mL Normal TSH 1.45 Performed By: #### L501.9520 #### [facility] [address] [place], [place], [address] HEPATITIS B SURFACE Collected: 12/21/2017 Status: F Source: [place] AG 3:05 PM [facility] [place] [place] REPOSITORY Order Comment: Specimen Comment: A duplicate report has been generated due to demographic Specimen Comment: updates. TYPE CODE TESTS RESULT OUT OF RANGE REFERENCE UNITS LAB L3100.0400 Negative Normal HB Negative SURF AG Result Comment: Performed at: [address] [id number] Hoisting Engineer Pile Driving: Anibal Barrera PhD, Phone: [phone] Performed By: #### L3100.0390, L3100.0625 #### [facility] (refer to report for specific site) refer to report for address and phone number HEPATITIS C ANTIBODIES Collected: 12/21/2017 Status: F Source: [place] 3:05 PM [facility] [place] [place] REPOSITORY Order Comment: Specimen Comment: A duplicate [...] with a HCV Nucleic Acid Amplification test ([id number]). Performed By: #### L3100.0390, L3100.0625 #### [facility] (refer to report for specific site) refer to report for address and phone number TYPE AND SCREEN Collected: 12/21/2017 Status: F Source: [place] 3:05 PM [facility] [place] [place] REPOSITORY Order Comment: RESULT(S) PREVIOUSLY REPORTED ON MANUAL REQUISITION DURING DOWNTIME. Reason for Type AND Screen/Red Cells: TYPE CODE TESTS RESULT OUT OF RANGE REFERENCE UNITS LAB B10.0800 O Normal BLOOD TYPE GEL POSITIVE LAB B100.4000 Normal Antibody NEGATIVE Screen Performed By: #### B101.7450 #### [facility] [address] [place], [address] CT/NG [facility] BY PCR Collected: 12/08/2017 Status: F Source: [place] 2:16 PM [facility] [place] [place] REPOSITORY TYPE CODE TESTS RESULT OUT OF RANGE REFERENCE UNITS LAB L8200.2100 Negative Normal Chlam Negative Trac PCR LAB L8200.2200 Negative Normal NG by Negative PCR Performed By: #### L8200.2000 #### [facility] [address] [place], [address] PAP I-G W/RFX HRHPV Collected: 12/08/2017 Status: F Source: [place] 2:16 PM [facility] [place] [place] REPOSITORY Order Comment: CYTOLOGY INFORMATION: - CLINICAL INFORMATION: - DATE LMP/MENOPAUSE: 10/08/17 LMP - COLLECTION VIAL: Thin Prep Vial - IRONMOLDER SOURCE: CERVICAL/ENDOCERVICAL - COLLECTION TECHNIQUE: BRUSH/SPATULA Specimen Comment: [id number] Specimen Comment: No. of containers..01 ThinPrep Vial TYPE CODE TESTS RESULT OUT OF RANGE REFERENCE UNITS LAB L7400.0800 . Normal DIAGN Comment Result Comment: NEGATIVE FOR INTRAEPITHELIAL LESION AND MALIGNANCY. LAB L7400.0900 . Normal ADEQ Comment Result Comment: Satisfactory for evaluation. Endocervical and/or squamous metaplastic cells (endocervical component) are present. LAB L7400.1400 . Normal PERFORM Comment Result Comment: Kortney Mi, Enrollment Management Manager (ASCP) LAB L7400.2575 . Normal TEST METHOD [...] no HPV testing was performed. Performed at: [facility] LabCo[address] [id number] Hoisting Engineer Pile Driving: Lanette Leach MD, Phone: [phone] Performed By: #### L7400.0350 #### [facility] (refer to report for specific site) refer to report for address and phone number ALLERGIES ALLERGIES DATE TYPE / CODE NAME / CODE REACTION SEVERITY SOURCE 07/04/2018 [facility]160 Allerg[facility]/F00 Hospital [address]35(SNOMED 7606802(RXNOR Repository CT) M) ENCOUNTERS ENCOUNTERS ADMIT/DISCHARGE ACCOUNT NUMBER ADMITTING ENCOUNTER LOCATION SOURCE CLASS 07/11/2018/07/15/20 [id number] Agustin [place] Inpatient [place] [address] [facility] ding:WPRoom: Repository HT778Qwv: 1 07/07/2018/07/07/20 [id number] Ambulatory [address] ding:WPOUTRo Repository om: WP013 07/04/2018/07/04/20 [id number] Ambulatory [address] ding:WPOUTRo Repository om: OBT02 06/30/2018/06/30/20 [id number] Ambulatory [address] ding:WPOUTRo Repository om: WP012 06/27/2018/06/27/20 [id number] Ambulatory [address] ding:WPOUTRo Repository om: WP020 06/23/2018/06/23/20 [id number] Ambulatory [address] ding:WPOUTRo Repository om: WP015 06/20/2018 [id number] Ambulatory [facility] ding:LABSPEC Repository 06/20/2018/06/20/[id number] ding:WPOUTRo Repository om: WP012 06/16/2018/06/16/20 [id number] Ambulatory [address] ding:WPOUTRo Repository om: WP011 06/13/2018/06/13/20 [id number] Ambulatory [place] ding:WPOUTRo Repository om: WP011 06/09/2018/06/09/20 [id number] Amb[place] [facility] ding:WPOUTRo Repository om: WP012 06/06/2018/06/06/20 [id number] Ambulatory [place] [address] [place] [address] ding:WPOUTRo Repository om: WP013 05/15/2018/05/15/20 [id number] Emergency [place] ding:ED Repository 05/01/2018 [id number] [facility] Repository 12/21/2017 [id number] Ambulatory [facility] ding:WOBLAB Repository 12/18/2017/12/19/[id number] System :[facility] Repository 12/08/2017 [id number] Ambulatory [facility] ding:LABSPEC Repository PAYERS PAYERS ENCOUNTER GUARANTOR PAYER SUBSCRIBER SOURCE 07/11/2018 KEYON REYES Primary KEYON REYES [place] [id number] [place] Insurance:ANTHEMPolic MURRAYDOB: [facility] Number: [id number] Hospital [address]994Dpn: 939) [id number] Repository [phone] () Date:[id number] [address] [place] [address]PJ: 07/11/2018 Secondary NOT GIVENUNK [place] Insurance:SELF PAY [facility] Number: Effective Repository Date:2018-07-04 07/07/2018 KEYON Stringer Primary KEYON Stringer [place] [id number] [place] Insurance:ANTHEMPolic [place]: [place] Number: [id number] Hospital [address]Ffx: 935) [id number] Repository [phone] () Date:[id number] [address] [place] [address]JC: 07/07/2018 Secondary NOT GIVENUNK [place] Insurance:SELF PAY [facility] Number: Effective Repository Date:2018-07-07 07/04/2018 KEYON Stringer Primary KEYON Stringer [place] [id number] [place] Insurance:ANTHEMPolic [place]: [place] Number: [id number] Hospital [address]Szv: (337) [id number] Repository [phone] () Date:8271-12-30RH [address] [place] [address] 66262FY: 07/04/2018 Secondary NOT GIVENUNK [place] Insurance:SELF PAY [facility] Number: Effective Repository Date:2018-07-04 06/30/2018 KEYON Stringer Primary KEYON Stringer [place] [id number] [place] Insurance:ANTHEMPolic [place]: [place] Number: [id number] Hospital [address]Dyr: 939) [id number] Repository [phone] () Date:4276-63-95TW [id number] [place] [address]RO: 06/30/2018 Secondary NOT GIVENUNK [place] Insurance:SELF PAY [facility] Number: Effective Repository Date:2018-06-30 06/27/2018 KEYON Stringer Primary KEYON Stringer [place] [id number] [place] Insurance:ANTHEMPolic [place]: [place] Number: [id number] Hospital [address]Zmq: (621) [id number] Repository [phone] () Date:6789-36-84EY [id number] [place] [address]TF: 06/27/2018 Secondary NOT GIVENUNK [place] Insurance:SELF PAY [facility] Number: Effective Repository Date:2018-06-27 06/23/2018 KEYON Stringer Primary KEYON M [place] [id number] [place] Insurance:ANTHEMPolic [place]: [place] Number: [id number] Hospital [id number]: (071) [id number] Repository [phone] () Date:2022-74-42ZD [address], [place] [address]TB: 06/23/2018 Secondary NOT GIVENUNK [place] Insurance:SELF PAY [facility] Number: Effective Repository Date:2018-06-23 06/20/2018 KEYON Stringer Primary KEYON M [place] [id number] [place] Insurance:ANTHEMPolic MURRAYDOB: [facility] y Number: [id number] [facility] [address]Nlg: (937) [id number] Repository [phone] () Date:3925-22-61[address]NLP, [place] [address]TG: 06/20/2018 Secondary NOT GIVENUNK Shree Insurance:SELF PAY [facility] Number: Effective Repository Date:2018-06-20 06/20/2018 KEYON M Primary KEYON Siomara [place] [id number] [place] Insurance:ANTHEMPolic MURRAYDOB: [facility] [place] Number: [id number] Hospital [address]Ica: ([phone] [id number] Repository [phone] () Date:5640-64-79FX [address]MZEM, [place] [address]JV: 06/20/2018 Secondary NOT GIVENUNK Shree Insurance:SELF PAY [facility] Number: Effective Repository Date:2018-06-20 06/16/2018 KEYON M Primary KEYON Siomara [place] [id number] [place] Insurance:ANTHEMPolic MURRAYDOB: [facility] [place] [place] Number: [id number] Hospital [address]Mkf: ([phone] [id number] Repository [phone] () Date:5622-58-49LJ [address]OQIDDPC, [place] [address]CO: 06/16/2018 Secondary NOT GIVENUNK Shree Insurance:SELF PAY [facility] Number: Effective Repository Date:2018-06-16 06/13/2018 KEYON M Primary KEYON M Shree [id number] [place] Insurance:ANTHEMPolic MURRAYDOB: [facility] [place] [place] Number: [id number] Hospital [address]Tif: [id number] [id number] Repository [phone] (HP) Date:1571-34-21YM [address]IYD [place] [address]QL: 06/13/2018 Secondary NOT GIVENUNK [place] Insurance:SELF PAY [facility] Number: Effective Repository Date:2018-06-13 06/09/2018 KEYON M Primary KEYON M Shree [id number] [place] Insurance:ANTHEMPolic MURRAYDOB: [facility] [place] [place] Number: [id number] Hospital [address]Qzo: [id number] [id number] Repository [phone] () Date:2174-60-62BR [address] [place] [address] [place] [address]GI: 06/09/2018 Secondary NOT GIVENUNK Shree Insurance:SELF PAY [facility] Number: Effective Repository Date:2018-06-09 06/06/2018 KEYON M Primary KEYON M [place] [id number] [place] Insurance:ANTHEMPolic MURRAYDOB: [facility] [place] [place] Number: [id number] Hospital [address]Ykm: ([phone] [id number] Repository [phone] () Date:6905-20-53ZS [id number] [place] [address]DD: 06/06/2018 Secondary NOT GIVENUNK Shree Insurance:SELF PAY [facility] Number: Effective Repository Date:2018-06-06 05/15/2018 KEYON M Primary KEYON M Shree [id number] [place] Insurance:ANTHEMPolic MURRAYDOB: [facility] [place]: [id number] Hospital [address]Mum: ([phone] [id number] Repository [phone] () Date:0176-53-93GL [address]DQGBBCB [place] [address]VX: 05/15/2018 Secondary NOT GIVENUNK [place] Insurance:SELF PAY [facility] Number: Effective Repository Date:2018-05-15 05/01/2018 KEYON Primary KEYON Shree [id number] [place] Insurance:ANTHEMPolic MURRAYDOB: [place] Number: [id number] Hospital [address]Syi: . () [id number] Repository Date:0686-67-56TD [id number] [place] [address]MJ: 05/01/2018 Secondary NOT GIVENUNK Shree Insurance:SELF PAY [facility] Number: Effective Repository Date:2018-05-01 12/21/2017 KEYON Primary KEYON Shree [id number] [place] Insurance:ANTHEMPolic MURRAYDOB: [place] Number: [id number] Hospital [address]Yqm: . () [id number] Repository Date:0984-52-85DG [address]KRKPWAC, [place] [address]FF: 12/21/2017 Secondary NOT GIVENUNK [place] Insurance:SELF PAY [facility] Number: Effective Repository Date:2017-12-21 12/08/2017 KEYON Primary KEYON [place] [id number] [place] Insurance:ANTHEMPolic MURRAYDOB: [place] Number: [id number] Hospital [address]Mhn: . () [id number] Repository Date:3997-82-53KR [address]DGYOYPU, [place] [address]YQ: 12/08/2017 Secondary NOT GIVENUNK Shree Insurance:SELF PAY [facility] Number: Effective Repository Date:2017-12-08
== END 2018-06-30 11:00 | disposition home or self-care (01) ==
LOC: WPOUT 09:55 → WP 09:56
PROVIDERS: Referring Provider Obstetrics & Gynecology; Visit Provider Obstetrics & Gynecology
DX: O30.003 Twin pregnancy, unspecified number of placenta and unspecified number of amniotic sacs, third trimester (principal); O30.043 Twin pregnancy, dichorionic/diamniotic, third trimester; O36.63X0 Maternal care for excessive fetal growth, third trimester, not applicable or unspecified; Z3A.35 35 weeks gestation of pregnancy
CPT/HCPCS: 59025; 59050; 99218; G0378

== ENCOUNTER 2018-07-04 09:28 | Outpatient (CLI) | payer BC, SELFPAY ==
[2018-07-04 10:21] VITALS: BMI 35.4
--- NOTE | 2018-07-05 07:32 | OB.TRI.HP_ITS ---
History of Present Illness Date of Service: 07/04/18 Was patient seen by the physician?: Yes Reason For Visit: NST Date of Service: 07/04/18 Final CHEN: 07/30/18 Final CHEN Source: US <20 weeks Gestational age: 36 Weeks and 3 Days History of Present Illness: Uncomplicated twin gestation Allergies No Known Allergies Allergy (Verified 07/04/18 10:22) Physical Exam General: Alert, Oriented x3, Cooperative, No apparent distress Cardiovascular: Regular rate, Regular Rhythm Lungs: Clear to auscultation, Normal air movement Abdomen: Soft, Non Tender, Non-Distended, Gravid, - - LGA Neurological: Neuro grossly intact FOAM RUBBER FABRICATOR: Normal external genitalia Estimated gestational size: Appropriate for gestational size Presentation: Cephalic Cervix Dilation (cm): 3 Station: -2 Effacement (%): 50 NST - FHR Rate Baby A Baseline: 130s Variability:: Moderate Accelerations:: 15 x 15 Decelerations:: None NST Reactive:: Yes, Appropriate for gestational age FHR Category:: Category I Uterine Activity:: q 2 minutes mild - FHR Rate Baby B Baseline: 130s Variability:: Moderate Accelerations:: 15 x 15 Decelerations:: None NST Reactive:: Yes FHR Category:: Category I Uterine Activity:: see above Impression/Plan Reassuring twin heart rate patterns.
--- OUTSIDE RECORDS SUMMARY | 2018-10-05 10:32 | XMS RPT_ITS ---
:1990 Author Organization OHIP Support Name Relationship Address Phone JULIO C GALVEZ Unavailable [address] + [place] [address] [facility] Unavailable [address] + [place] [address] [facility] Unavailable [address] + [place] [address] [facility] Unavailable [address] + [place] [address] [facility] Unavailable [address] + [place] [address] [facility] Unavailable [address] + [place] [address] [facility] Unavailable [address] + [place] [address] [facility] Unavailable [address] + [place] [address] [facility] Unavailable [address] + [place] [address] [facility] Unavailable [address] + [place] [address] [facility] Unavailable [address] + [place] [address] [facility] Unavailable [address] + [place] [address] [facility] Unavailable [address] + [place] [address] [facility] Unavailable [address] + [place] [address] [facility] Unavailable [address] + [place] [address] [facility] Unavailable [address] + [place] [address] [facility] Unavailable [address] + [place] [address] [facility] Unavailable [address] + [place] [address] [facility] Unavailable [address] + [place] [address] [facility] Unavailable [address] + [place] [address] [facility] Unavailable [address] + [place] [address] [facility] Unavailable [address] + [place] [address] [facility] Unavailable [address] + [place] [address] [facility] Unavailable [address] + [place] [address] [facility] Unavailable [address] + [place] [address] [facility] Unavailable [address] + [place] [address] [place] / [place]. [place] Care Team Providers Name Role Phone Kelsey, Agustin Attending Unavailable Seals, Agustin Referring Unavailable [...] Primay Care Physicia, No Primary Care Unavailable Bright-Sunny, Summer Attending Unavailable Bright-Sunny, Hallie Referring Unavailable Primay Care Physicia, No Primary [...] Primay Care Physicia, No Primary Care Unavailable Yo Jasmine Attending Unavailable PROBLEMS PROBLEMS DATE TYPE CONDITION / CODE ATTENDING STATUS SOURCE 07/15/2018 Unknown O30.003 - Twin Seals, Agustin Active [place] , Community unspecified number Hospital of placenta and Repository unspecified number of amniotic sacs, third trimester / O30.003(ICD-10) 07/15/2018 Unknown G89.18 - Other acute Seals, Agustin Active [place] postprocedural pain Community / G89.18(ICD-10) Hospital Repository 06/20/2018 Unknown Z36.85 - Encounter Seals, Agustin Active [place] for Community screening for Hospital Streptococcus B / Repository Z36.85(ICD-10) 05/01/2018 Unknown O30.042 - Twin Seals, Agustin Active [place] , [facility] dichorionic/diamniot Hospital ic, second trimester Repository / O30.042(ICD-10) 12/08/2017 Unknown Z12.4 - Encounter SealsAgustin [facility] for screening for Community malignant neoplasm Hospital of cervix / Repository Z12.4(ICD-10) 12/08/2017 Unknown Z11.3 - Encounter Seals, Agustin Active [place] for screening for Community infections with a Hospital predominantly sexual Repository mode of transmission / Z11.3(ICD-10) PROCEDURES PROCEDURES No Procedure Records FoundRESULTS RESULTS DISCHARGE SUMMARY Observed: 07/17/2018 Status: F Source: [place] 10:55 AM [facility] HOSPITAL REPOSITORY [facility] Medical Records Department [address] [place] [address] Discharge Summary 07/17/18 1048 MR#: [id number] Acct: [id number] Name: KEYON GALVEZ Rep #: [id number] : 1990 28 From: Tran Koroma MD PCP: Care Physician, No Primary Status: DIS IN Y Location: [id number] Discharge Date and Diagnosis Date of Admission: [...] OPERATIVE REPORT Observed: 07/12/2018 Status: F Source: [place] 8:16 AM [facility] REPOSITORY [facility] Medical Records Department [address] [place] [address] Operative Report 07/11/18 2155 MR#: [id number] Acct: [id number] Name: KEYON GALVEZ Rep #: [id number] : 1990 28 From: Agustin Cole MD PCP: Care Physician, No Primary Status: ADM IN Location: [id number] Report of Operation Date of Procedure: 07/11/18 Pre-Operative Diagnosis: Arrest of Descent in sSecond Stage of Labor with Twin Post-Operative Diagnosis: Same Surgery/Procedure Performed:: Primary Low Transverse Section Description of Surgical Findings:: Normal appearing uterus, ovaries, and fallopian tubes. Baby A in vertex occiput posterior position weighing 9kso4nr. Twin B in vertex presentation wieghing 7lb3oz. Apgars were 9/9 for both babies. assurance senior: Maritza Junior Type of Anesthesia:: Epidural Anesthesiologist: [...] dissection. In a similar fashion the rectus au6bhrni were dissected off the lower fascial defect. [...] F Source: [place] NO DIFF 6:13 AM [facility] REPOSITORY Order Comment: Comments: Day #1 Reason [...] MPV 10.8 Performed By: #### L100.0500 #### [facility] [address] [place], [address] DISCHARGE INSTRUCTION Observed: 07/11/2018 Status: F Source: [place] 11:06 PM [facility] REPOSITORY [facility] Medical Records Department [address] [place] [address] Instructions for Home/Discharge Instructions 07/11/18 2305 MR#: [id number] Acct: [id number] Name: KEYON GALVEZ Rep #: [id number] : 1990 28 From: Agustin Cole MD [...] 07/11/2018 Status: F Source: [place] 9:45 PM [facility] REPOSITORY Patient: KEYON GALVEZ : 1990 () Acct Num: [id number] Phys: Kelsey CAGE,Agustin Unit Num: [id number] Loc: WP FL533-1 Specimen: [id number] Received: 07/12/1839 Spec Type: PLACENTA TISSUES 1 [...] None UMBILICAL CORD - Present A. Color: Luna-omrales B. Insertion: Marginal C. Length: 31 cm [...] designated B AM:mary jane 07/13/18 TC:5 CPT: 09991 x2 HEADER OPERATION: Primary section PRE-OP DIAGNOSIS: [...] on file> Performed By: #### PPLAC #### [facility] [address] [place], [place], [address] CBC-COMPLETE BLOOD CNT Collected: 07/11/2018 Status: F Source: [place] NO DIFF 7:45 AM [facility] REPOSITORY TYPE CODE TESTS RESULT OUT OF [...] MPV 11.5 Performed By: #### L100.0500 #### [facility] [address] [place], [place], [address] TYPE AND SCREEN Collected: 07/11/2018 Status: F Source: [place] 7:45 AM [facility] REPOSITORY Order Comment: Reason for Type AND Screen/Red Cells: TYPE CODE TESTS RESULT OUT OF RANGE REFERENCE UNITS LAB B10.0800 O Normal BLOOD TYPE GEL POSITIVE LAB B100.4000 Normal Antibody NEGATIVE Screen Performed By: #### B101.7450 #### [facility] [address] [facility], [address] PATHOLOGY SPECIMEN OB Collected: 07/11/2018 Status: F Source: [place] 6:50 AM [facility] REPOSITORY Order Comment: Reason for Laboratory Test Placenta for Lab studies Send Specimen For (Specify): Studies @ [facility] Lab:Routine Time of Procedure: 2229 Date of Procedure: 07/11/18 Reason specimen being sent to pathology (Hx/complications): twin Type of specimen: Placenta Type of procedure performed: Primary Section TYPE CODE TESTS RESULT OUT OF RANGE REFERENCE UNITS LAB L350.1800 SEE Normal PATH. PATHOLOGY Spec. OB REPORT Result Comment: Specimen submitted to Anatomical Pathology Department for testing. Performed By: #### L350.1800 #### [facility] [address] [facility], [address] Observed: 06/20/2018 Status: F Source: [place] CULTURE, GROUP B 3:30 PM [facility] STREPTOCOCCUS REPOSITORY Comments: VAGINAL/RECTAL CAROL Culture Group B Beta Streptococcus is not isolated. Performed By: #### M100.1800 #### [facility] [address] [place], [address] EMERGENCY DEPARTMENT Observed: 05/15/2018 Status: F Source: [place] SUMMARY 4:09 PM [facility] REPOSITORY [facility] Medical Records Department [address] [facility] [address] Emergency Department Summary 05/15/18 1604 MR#: [id number] Acct: [id number] Name: KEYON GALVEZ Rep #: [id number] : 1990 28 From: Yoshi Denney MD [...] 500 mg to treat her cystitis. Her student life dean/agricultural education teacher Dr. Agustin Cole was paged to inform him of patient's urine results and need to follow-up urine culture. Treatment Plan: Treat cystitis and hyperemesis with cephalexin and Zofran ODT Disposition: Discharged to home in stable and improved condition Impression: 1. Hyperemesis gravidarum 2. Ketosis 3. Cystitis This note was generated with [employer] dictation software. It may contain incorrect words, [...] problems, contact your Primary Care Provider. Call [facility] ([phone]) or report to the closest Emergency Room. Call 911 if necessary. 05/15/18 1609 <Electronically signed by Yoshi Denney MD> Date Yoshi Denney MD Cosigner Signature (If Indicated): Date CC: No Primary Care Physician; Agustin Cole MD URINALYSIS, COMPLETE Collected: 05/15/2018 Status: F Source: [place] 2:10 PM [facility] REPOSITORY Order Comment: Order Date: 05/15/18 How [...] SEEN Performed By: #### L400.0001 #### [facility] [address] [place], [address] Observed: 05/15/2018 Status: F Source: [place] CULTURE, URINE 2:10 PM [facility] REPOSITORY Urine Culture Below infection level. ORGANISM 1: Mixed Gram Positive Organisms [place] Count 1000-10,000 Performed By: #### M100.0650 #### [facility] [address] [facility] [place], [address] GLUCOSE CHALLENGE GEST Collected: 05/01/2018 Status: F Source: [place] 1H 50G 2:03 PM [facility] REPOSITORY TYPE CODE TESTS RESULT OUT OF RANGE REFERENCE UNITS LAB L501.0250 70-140 mg/dL Normal GLU GEST 110 50g 1H Performed By: #### L501.0250 #### [facility] [address] [facility] [place], [address] CBC-COMPLETE BLOOD CNT Collected: 05/01/2018 Status: F Source: [place] NO DIFF 2:03 PM [facility] REPOSITORY TYPE CODE TESTS RESULT OUT OF [...] MPV 9.9 Performed By: #### L100.0500 #### [facility] [address] [facility] [place], [address] DOWNTIME REPORT Observed: 01/04/2018 Status: F Source: [place] 2:01 PM [facility] REPOSITORY [facility] Medical Records Department [address] [place] [address] Downtime Report MR#: [id number] Acct: [id number] Name: KEYON GALVEZ Rep #: [id number] : 1990 27 From: Hung Barclay PCP: Status: REG CLI This patient was seen during an EMR downtime December 18, 2017 - December 25, 2017. This patient may have a combination of paper and electronic documentation or all paper documentation. All documentation is viewable within the e-chart portion of [employer] for each patient visit. T AND S-NO Collected: 12/21/2017 Status: F Source: [place] CHARGE W/PNP 3:05 PM [facility] REPOSITORY Order Comment: RESULT(S) PREVIOUSLY REPORTED ON MANUAL REQUISITION DURING DOWNTIME. Reason for Type AND Screen/Red Cells: Surgery? N TYPE CODE TESTS RESULT OUT OF RANGE REFERENCE UNITS LAB B10.0800 O Normal BLOOD POSITIVE TYPE GEL LAB B100.4050 Normal Ab SCREEN NEGATIVE GEL Performed By: #### B100.7550 #### [facility] [address] [place], [address] URINE DRUG SCREEN Collected: 12/21/2017 Status: P Source: [place] (VISTA) 3:05 PM [facility] REPOSITORY Order Comment: List of Drugs Taken [...] UTCA Performed By: #### L505.5000, L505.6240 #### [facility] [address] [place], [address] NICOTINE URINE DRUG Collected: 12/21/2017 Status: P Source: [place] SCREEN 3:05 PM [facility] REPOSITORY Order Comment: List of Drugs Taken [...] Nicotine. Performed By: #### L505.5000, L505.6240 #### [facility] [address] [facility] [place], [place], [address] RPR Collected: 12/21/2017 Status: F Source: [place] 3:05 PM [facility] REPOSITORY TYPE CODE TESTS RESULT OUT OF REFERENCE UNITS RANGE LAB L700.5100 NONREACTIVE Normal RPR NONREACTIVE Performed By: #### L700.5100 #### [facility] [address] [place], [place], [address] RUBELLA IGG Collected: 12/21/2017 Status: F Source: [place] 3:05 [facility] REPOSITORY TYPE CODE TESTS RESULT OUT OF RANGE REFERENCE UNITS LAB L509.4000 IU/mL Normal Rubella IgG 7.5 Result Comment: Antibody results Interpretation of Immune Status < 5 IU/ml Presumed Non-immune 5 - < 10 IU/ml Equivocal > or = 10 IU/ml Presumed Immune Performed By: #### L509.4000, L3890.6005 #### [facility] [address] [place], [place], [address] HIV - [facility] Collected: 12/21/2017 Status: F Source: [place] 3:05 [facility] REPOSITORY TYPE CODE TESTS RESULT OUT OF RANGE REFERENCE UNITS LAB L3890.6005 Nonreactive Normal HIV - [facility] Non-Reactive Performed By: #### L509.4000, L3890.6005 #### [facility] [address] [facility] [place], [address] CBC W/DIFF, AUTOMATED Collected: 12/21/2017 Status: F Source: [place] 3:05 PM [facility] REPOSITORY TYPE CODE TESTS RESULT OUT OF [...] not performed Performed By: #### L100.0100 #### [facility] [address] [facility] [place], [place], [address] URINALYSIS, ROUTINE Collected: 12/21/2017 Status: F Source: [place] (DIPSTICK) 3:05 PM [facility] REPOSITORY Order Comment: How was Urine Obtained? [...] ESTERASE 500 Performed By: #### L400.2010 #### [facility] [address] [facility] [place], [place], [address] THYROID STIM HORMONE Collected: 12/21/2017 Status: F Source: [place] (TSH) 3:05 PM [facility] REPOSITORY Order Comment: RESULT(S) PREVIOUSLY REPORTED ON MANUAL REQUISITION DURING DOWNTIME. TYPE CODE TESTS RESULT OUT OF RANGE REFERENCE UNITS LAB L501.9520 0.358-3.74 uIU/mL Normal TSH 1.45 Performed By: #### L501.9520 #### [facility] [address] [place], [place], [address] HEPATITIS B SURFACE Collected: 12/21/2017 Status: F Source: [place] AG 3:05 PM [facility] REPOSITORY Order Comment: Specimen Comment: A duplicate report has been generated due to demographic Specimen Comment: updates. TYPE CODE TESTS RESULT OUT OF RANGE REFERENCE UNITS LAB L3100.0400 Negative Normal HB Negative SURF AG Result Comment: Performed at: [address] [id number] Electronics Department Manager: Anibal Barrera PhD, Phone: [phone] Performed By: #### L3100.0390, L3100.0625 #### [facility] (refer to report for specific site) refer to report for address and phone number HEPATITIS C ANTIBODIES Collected: 12/21/2017 Status: F Source: [place] 3:05 PM [facility] REPOSITORY Order Comment: Specimen Comment: A duplicate [...] with a HCV Nucleic Acid Amplification test (788338). Performed By: #### L3100.0390, L3100.0625 #### [facility] (refer to report for specific site) refer to report for address and phone number TYPE AND SCREEN Collected: 12/21/2017 Status: F Source: [place] 3:05 PM [facility] REPOSITORY Order Comment: RESULT(S) PREVIOUSLY REPORTED ON MANUAL REQUISITION DURING DOWNTIME. Reason for Type AND Screen/Red Cells: TYPE CODE TESTS RESULT OUT OF RANGE REFERENCE UNITS LAB B10.0800 O Normal BLOOD TYPE GEL POSITIVE LAB B100.4000 Normal Antibody NEGATIVE Screen Performed By: #### B101.7450 #### [facility] [address] [place], [address] CT/NG WCH BY PCR Collected: 12/08/2017 Status: F Source: [place] 2:16 PM [facility] REPOSITORY TYPE CODE TESTS RESULT OUT OF RANGE REFERENCE UNITS LAB L8200.2100 Negative Normal Chlam Negative Trac PCR LAB L8200.2200 Negative Normal NG by Negative PCR Performed By: #### L8200.2000 #### [facility] [address] [place], [address] PAP I-G W/RFX HRHPV Collected: 12/08/2017 Status: F Source: [place] 2:16 PM [facility] REPOSITORY Order Comment: CYTOLOGY INFORMATION: - CLINICAL INFORMATION: - DATE LMP/MENOPAUSE: 10/08/17 LMP - COLLECTION VIAL: Thin Prep Vial - ACADEMIC ADVISOR SOURCE: CERVICAL/ENDOCERVICAL - COLLECTION TECHNIQUE: BRUSH/SPATULA Specimen Comment: [id number] Specimen Comment: No. of containers..01 ThinPrep Vial TYPE CODE TESTS RESULT OUT OF RANGE REFERENCE UNITS LAB L7400.0800 . Normal DIAGN Comment Result Comment: NEGATIVE FOR INTRAEPITHELIAL LESION AND MALIGNANCY. LAB L7400.0900 . Normal ADEQ Comment Result Comment: Satisfactory for evaluation. Endocervical and/or squamous metaplastic cells (endocervical component) are present. LAB L7400.1400 . Normal PERFORM Comment Result Comment: Kortney Mi, Road Production General Manager (ASCP) LAB L7400.2575 . Normal TEST [...] no HPV testing was performed. Performed at: [facility] [place] [id number] Electronics Department Manager: Lanette Leach MD, Phone: [phone] Performed By: #### L7400.0350 #### [facility] (refer to report for specific site) refer to report for address and phone number ALLERGIES ALLERGIES DATE TYPE / CODE NAME / CODE REACTION SEVERITY SOURCE 07/04/2018 [facility] Allergies/F00 Hospital 77203(SNOMED 1340527(RXNOR Repository CT) M) ENCOUNTERS ENCOUNTERS ADMIT/DISCHARGE ACCOUNT NUMBER ADMITTING ENCOUNTER LOCATION SOURCE CLASS 07/11/2018/07/15/20 [id number] Agustin Cole Inpatient [place] [address] Encounter [facility] ding:WPRoom: Repository TE765Bkt: 1 07/07/2018/07/07/20 [id number] Ambulatory [address] ding:WPOUTRo Repository om: WP013 07/04/2018/07/04/20 [id number] Ambulatory [address] ding:WPOUTRo Repository om: OBT02 06/30/2018/06/30/20 [id number] Ambulatory [address] ding:WPOUTRo Repository om: WP012 06/27/2018/06/27/20 [id number] Ambulatory [address] ding:WPOUTRo Repository om: WP020 06/23/2018/06/23/20 [id number] Ambulatory [address] ding:WPOUTRo Repository om: WP015 06/20/[id number] [facility] ding:LABSPEC Repository 06/20/2018/06/20/[id number] ding:WPOUTRo Repository om: WP012 06/16/2018/06/16/20 [id number] Ambulatory [address] ding:WPOUTRo Repository om: WP011 06/13/2018/06/13/20 [id number] [place] ding:WPOUTRo Repository om: WP011 06/09/2018/06/09/20 [id number] [place] ding:WPOUTRo Repository om: WP012 06/06/2018/06/06/20 [id number] [place] [address] [place] [address] ding:WPOUTRo Repository om: WP013 05/15/2018/05/15/20 [id number] [place] ding:ED Repository 05/01/2018 [id number] [facility] ding:WO[facility] Repository 12/21/[id number] [facility] ding:WOBLAB Repository 12/18/2017/12/19/[id number] System :[facility] Repository 12/08/[id number] [facility] ding:LABSPEC Repository PAYERS PAYERS ENCOUNTER GUARANTOR PAYER SUBSCRIBER SOURCE 07/11/2018 KEYON REYES Primary KEYON REYES [place] [id number] [place] Insurance:ANTHEMPolic MURRAYDOB: [facility] Number: [id number] Hospital [address]Aye: [phone]) [id number] Repository [phone] () Date:3232-49-23BS [address] [place] [address]UJ: 07/11/2018 Secondary NOT GIVENUNK [place] Insurance:SELF PAY [facility] Number: Effective Repository Date:2018-07-04 07/07/2018 KEYON Stringer Primary KEYON Stringer [place] [id number] [place] Insurance:ANTHEMPolic [place]: [place] Number: [id number] Hospital [address]Qam: 933) [id number] Repository [phone] () Date:8671-97-83KW [address] [place] [address]SY: 07/07/2018 Secondary NOT GIVENUNK [place] Insurance:SELF PAY [facility] Number: Effective Repository Date:2018-07-07 07/04/2018 KEYON Stringer Primary KEYON Stringer [place] [id number] [place] Insurance:ANTHEMPolic [place]: [place] Number: [id number] Hospital [address]Rnz: (153) [id number] Repository [phone] () Date:2954-97-17LM [address] [place] [address]YC: 07/04/2018 Secondary NOT GIVENUNK [place] Insurance:SELF PAY [facility] Number: Effective Repository Date:2018-07-04 06/30/2018 KEYON Stringer Primary KEYON Stringer [place] [id number] [place] Insurance:ANTHEMPolic [place]URRAYDOB: [place] Number: [id number] Hospital [address]Agz: 93 [id number] Repository [phone] () Date:7109-54-00SF [id number] [place] [address]EZ: 06/30/2018 Secondary NOT GIVENUNK [place] Insurance:SELF PAY [facility] Number: Effective Repository Date:2018-06-30 06/27/2018 KEYON Stringer Primary KEYON Stringer [place] [id number] [place] Insurance:ANTHEMPolic [place]URRAYDOB: [place] Number: [id number] Hospital [address]Osp: (462) [id number] Repository [phone] () Date:2835-38-29TC [address] [place] [address] 167[address]DS: 06/27/2018 Secondary NOT GIVENUNK [place] Insurance:SELF PAY [facility] Number: Effective Repository Date:2018-06-27 06/23/2018 KEYON Stringer Primary KEYON M [place] [id number] [place] Insurance:ANTHEMPolic [place]RAYDOB: [place] Number: [id number] Hospital [address]Ypq: (539) [id number] Repository [phone] () Date:3303-10-30LW [address], [place] [address]DZ: 06/23/2018 Secondary NOT GIVENUNK [place] Insurance:SELF PAY [facility] Number: Effective Repository Date:2018-06-23 06/20/2018 KEYON Stringer Primary KEYON M [place] [id number] [place] Insurance:ANTHEMPolic MURRAYDOB: [facility] Number: [id number] Hospital [address]Ctq: (937) [id number] Repository [phone] () Date:9369-97-25[address], [place] [address]BE: 06/20/2018 Secondary NOT GIVENUNK [place] Insurance:SELF PAY [facility] Number: Effective Repository Date:2018-06-20 06/20/2018 KEYON M Primary KEYON Siomara [place] [id number] [place] Insurance:ANTHEMPolic MURRAYDOB: [facility] [place] Number: [id number] Hospital [address]Tql: ([phone] [id number] Repository [phone] () Date:4044-73-60[address], [place] [address]YR: 06/20/2018 Secondary NOT GIVENUNK [place] Insurance:SELF PAY [facility] Number: Effective Repository Date:2018-06-20 06/16/2018 KEYON M Primary KEYON Siomara [place] [id number] [place] Insurance:ANTHEMPolic MURRAYDOB: [facility] [facility] [place] Number: [id number] Hospital [address]Eqf: (937 [id number] Repository [phone] () Date:3486-68-17[address], [place] [address]RA: 06/16/2018 Secondary NOT GIVENUNK [place] Insurance:SELF PAY [facility] Number: Effective Repository Date:2018-06-16 06/13/2018 KEYON M Primary KEYON M [place] [id number] [place] Insurance:ANTHEMPolic MURRAYDOB: [facility] [facility] [facility] [place] y Number: [id number] [address]Ywv: [id number] Repository [phone] (HP) Date:0498-78-58[address] [place] [address]TN: 06/13/2018 Secondary NOT GIVENUNK [place] Insurance:SELF PAY [facility] Number: Effective Repository Date:2018-06-13 06/09/2018 KEYON M Primary KEYON M Shree [id number] [place] Insurance:ANTHEMPolic MURRAYDOB: [facility] [facility] [place] Number: [id number] [facility] [id number]: [id number] Repository [phone] () Date:3759-78-39VD [address] [place] [address] [place] [address]AN: 06/09/2018 Secondary NOT GIVENUNK Shree Insurance:SELF PAY [facility] Number: Effective Repository Date:2018-06-09 06/06/2018 KEYON M Primary KEYON M [place] [id number] [place] Insurance:ANTHEMPolic MURRAYDOB[facility] [place] Number: [id number] [facility] [address]Hem: (937 [id number] Repository [phone] () Date:1825-33-38[id number] [place] [address]TM: 06/06/2018 Secondary NOT GIVENUNK Shree Insurance:SELF PAY [facility] Number: Effective Repository Date:2018-06-06 05/15/2018 KEYON M Primary KEYON M Shree [id number] [place] Insurance:ANTHEMPolic [facility] [place] Number: [id number] [facility] [address]Ajn: (937 [id number] Repository [phone] () Date:9430-00-28[address] [address]SE: 05/15/2018 Secondary NOT GIVENUNK [place] Insurance:SELF PAY [facility] Number: Effective Repository Date:2018-05-15 05/01/2018 KEYON Primary KEYON Shree [id number] [place] Insurance:ANTHEMPolic MURRAYDOB: [place] Number: [id number] [facility] [address]Lvs: . () [id number] Repository Date:9543-85-00QL [id number] [place] [address]TT: 05/01/2018 Secondary NOT GIVENUNK Shree Insurance:SELF PAY [facility] Number: Effective Repository Date:2018-05-01 12/21/2017 KEYON Primary KEYON Shree [id number] [place] Insurance:ANTHEMPolic MURRAYDOB: [place] Number: [id number] [address]Dup: . () [id number] Repository Date:2003-85-19[address], [place] [address]UI: 12/21/2017 Secondary NOT GIVENUNK [place] Insurance:SELF PAY [facility] Number: Effective Repository Date:2017-12-21 12/08/2017 KEYON Primary KEYON [place] [id number] [place] Insurance:ANTHEMPolic MURRAYDOB: [place] Number: [id number] [facility] [address]Qxi: . () [id number] Repository Date:9864-35-75[address], [place] [address]JA: 12/08/2017 Secondary NOT GIVENUNK Shree Insurance:SELF PAY [facility] Number: Effective Repository Date:2017-12-08
== END 2018-07-04 10:00 | disposition home or self-care (01) ==
LOC: WPOUT 09:29 → WP 09:31
PROVIDERS: Referring Provider Obstetrics & Gynecology; Visit Provider Obstetrics & Gynecology
DX: O30.003 Twin pregnancy, unspecified number of placenta and unspecified number of amniotic sacs, third trimester (principal); O36.63X0 Maternal care for excessive fetal growth, third trimester, not applicable or unspecified; Z3A.35 35 weeks gestation of pregnancy
CPT/HCPCS: 59025

== ENCOUNTER 2018-07-07 10:00 | Outpatient (CLI) | payer BC, SELFPAY ==
[2018-07-07 09:59] VITALS: BMI 35.3
[2018-07-07 10:17] VITALS: BMI 36.3
--- NOTE | 2018-07-07 23:55 | OB.TRI.NOTE ---
History of Present Illness Date of Service: 07/07/18 Was patient seen by the physician?: No Reason For Visit: NST WITH TWINS Date of Service: 07/07/18 Final CHEN: 07/30/18 Final CHEN Source: US <20 weeks Gestational age: 36 Weeks and 5 Days History of Present Illness: 28yo with dichorionic diamnionic twins presents for scheduled NST. Allergies No Known Allergies Allergy (Verified 07/04/18 10:22) NST - FHR Rate Baby A Baseline: 130 Variability:: Moderate Accelerations:: 15 x 15 Decelerations:: None NST Reactive:: Yes FHR Category:: Category I Uterine Activity:: 07/26 - FHR Rate Baby B Baseline: 135 Variability:: Moderate Accelerations:: 15 x 15 Decelerations:: None NST Reactive:: Yes FHR Category:: Category I Uterine Activity:: 07/26 Impression/Plan 28yo with dichorionic diamnionic twin gestation, Cat I FHR x 2 -d/c home
== END 2018-07-07 10:45 | disposition home or self-care (01) ==
LOC: WPOUT 10:00 → WP 10:01
PROVIDERS: Referring Provider Obstetrics & Gynecology; Visit Provider Obstetrics & Gynecology
DX: O30.043 Twin pregnancy, dichorionic/diamniotic, third trimester (principal); Z3A.36 36 weeks gestation of pregnancy
CPT/HCPCS: 59025

== ENCOUNTER 2018-07-11 06:50 | Inpatient (IN) | payer BC, SELFPAY ==
[2018-07-11 07:28] VITALS: BMI 36.5
[2018-07-11] MEDS: Lactated Ringers 1,000 ML 50 ML IV ×3 (07:45→16:40)
[2018-07-11 07:59] LABS: Hematocrit 33.3 % (37-47); Hemoglobin 10.8 g/dl (12.0-15.0); Mean Corp Hgb Conc 32.4 g/gl (32-36); Mean Corpuscular Hgb 30.5 pg (27.0-32.0); Mean Corpuscular Volume 94.1 fL (81-99); Mean Platelet Vol. 11.5 fl (6.2-12.0); Platelet Count 164 K/mm3 (150-450); RBC Distribution Width CV 14.9 % (11.6-14.6); RBC Distribution Width SD 49.2 fl (35.1-43.9); Red Blood Count 3.54 M/mm3 (4.2-5.4); White Blood Count 6.4 K/mm3 (4.4-11.0)
[2018-07-11 08:01] LABS: Scan Indicated on CBC? Y/N NO
[2018-07-11] MEDS: Oxytocin 30 units/NS 500 ml 30 UNITS/500 ML IV.SOLN IV (08:09)
[2018-07-11] MEDS: fentaNYL-bupivacaine (epidural) 100 ML BAG EPIDURAL ×2 (12:52→17:40)
--- NOTE | 2018-07-11 20:02 | PCM.PN.OB ---
Subjective: Comfortable. Feels some pressure Objective: AFeb VSS FHR tracing Cat 1 x 2 - Physical Exam General: Alert, Oriented x3, Cooperative, No apparent distress Lungs: Clear to auscultation, Normal air movement Cardiovascular: Regular rate, Regular Rhythm Abdomen: Soft, Non Tender, Gravid Extremities: Edema Skin: No rashes Neurological: Neuro grossly intact Psych/Mental Status: Normal Affect Comment: CE FD -1 station Weight: 219 lb 5.759 oz Body Mass Index (BMI) 36.5 Intake and Output for Last 24 Hours 07/09/18 07/10/18 07/11/18 23:59 23:59 23:59 Intake Total 3048.7 / 3048.7 Output Total 350 / 350 Balance 2698.7 / 2698.7 Laboratory Tests Past 24 Hrs 07/11/18 07/11/18 07:45 07:45 WBC 6.4 RBC 3.54 L Hgb 10.8 L Hct 33.3 L MCV 94.1 MCH 30.5 MCHC 32.4 RDW 14.9 H RDW Differential 49.2 H Plt Count 164 MPV 11.5 Blood Type O POSITIVE Antibody Screen NEGATIVE Medical Necessity - Tobacco Use Smoking Status: Former smoker Assessment/Plan Now progressed to FD. Will start pushing efforts.
--- NOTE | 2018-07-11 21:45 | PLAC_PTH ---
PATIENT: KEYON GALVEZ LOC: [facility] U#:[id number] AGE/SX: 28/F ROOM: WP021 RE07/11/[address]: Dr. Agustin Cole MD : 1990 BED: 1 DIS: 07/15/2018 SPEC #: [id number] RECD: 07/12/18 00:40 STATUS: GHASSAN REQ #: [id number] GLENNA: 07/11/18 21:[address]: Agustin Cole DEPT: SURGICAL PATHOLOGY RECD BY: Myrtle Vásquez ENTERED: 07/12/18 13:30 SP TYPE: PLACENTA OTHR DR: No Primary Care Phys Tissues: Placenta, NOS Procedures: Surgery Specimen Level V HEADER OPERATION: Primary section PRE-OP DIAGNOSIS: Twin TISSUE SUBMITTED: Placenta MICROSCOPIC DIAGNOSIS Twin placenta: Dichorionic and diamniotic twin placenta. Placenta A: Placental disc - third trimester placenta (562 gm). - Focal villous congestion. Membranes - no pathologic diagnosis. Umbilical cord - three blood vessels and no pathologic diagnosis. Placenta B: Placental disc - third trimester placenta (507 gm). - Focal villous congestion. Membranes - no pathologic diagnosis. Umbilical cord - three blood vessels and no pathologic diagnosis. SJ:mary jane 07/16/18 MICROSCOPIC DESCRIPTION Slides are reviewed. GROSS DESCRIPTION SPECIMEN: TWIN PLACENTA The specimen consists of two placental discs with attached two umbilical cords, dividing membrane and peripheral membranes. The umbilical cords are not designated as to baby A or baby B. They are arbitrarily assigned A and B. / CLINICAL INFORMATION: A. Weight: A - 3.257 kg; B - 3.255 kg B. Gestational Age: 37 weeks C. Sex: A - Female, B - Female PLACENTA A: PLACENTAL WEIGHT (POST FIXATION): 562 gm PLACENTAL DIMENSIONS: 20 x 18 x 3 cm PLACENTAL SHAPE: Usual ovoid PLACENTAL WEIGHT FOR GESTATIONAL AGE: Within 10-99th percentile MEMBRANES - Present A. Insertion: Marginal B. Site of rupture from edge: at edge of placental disc C. Color of membrane: Light luna D. Abnormalities: None UMBILICAL CORD - Present A. Color: Luna-morales B. Insertion: Eccentric C. Length: 34 cm D. Diameter: 1.7 cm E. Number of vessels: Three F. Abnormalities: None Physical manipulation of the dividing membrane reveals four distinct membranes. PLACENTA B: PLACENTAL WEIGHT (POST FIXATION): 507 gm PLACENTAL DIMENSIONS: 19 x 13 x 3.5 cm PLACENTAL SHAPE: Usual ovoid PLACENTAL WEIGHT FOR GESTATIONAL AGE: Within 10-99th percentile MEMBRANES - Present A. Insertion: Marginal B. Site of rupture from edge: at edge of placental disc C. Color of membrane: Luna-morales D. Abnormalities: None UMBILICAL CORD - Present A. Color: Luna-morales B. Insertion: Marginal C. Length: 31 cm D. Diameter: 1.5 cm E. Number of vessels: Three F. Abnormalities: None PLACENTAL DISC - Present A. Color of surface: Luna-morales B. surface abnormalities: None C. Maternal cotyledons: Intact with minimal tears D. Attached retro placental clot: No clot E. Cut surface: Dark red and spongy F. Lesions: None G. Separate clot: Absent SECTIONS SUBMITTED: 9 cassettes 1. Dividing membrane 2. Umbilical cord and membranes side A 3. Placental disc designated A 4. Placental disc designated A 5. Placental disc designated A 6. Umbilical cord and membranes side B 7. Placental disc designated B 8. Placental disc designated B 9. Placental disc designated B AM:mary jane 07/13/18 TC:5 CPT: 72431 x2
--- NOTE | 2018-07-11 21:52 | PCM.PN.OB ---
Subjective: Feeling more painful with contractions. Objective: Afeb VSS FHR tracings Cat1 - Physical Exam General: Alert, Oriented x3, Cooperative, No apparent distress Abdomen: Soft, Non Tender, Gravid Extremities: Edema Skin: No rashes Neurological: Neuro grossly intact Psych/Mental Status: Normal Affect Comment: CE FD 0 to +1 station Weight: 219 lb 5.759 oz Body Mass Index (BMI) 36.5 Intake and Output for Last 24 Hours 07/09/18 07/10/18 07/11/18 23:59 23:59 23:59 Intake Total 3048.7 / 3048.7 Output Total 350 / 350 Balance 2698.7 / 2698.7 Laboratory Tests Past 24 Hrs 07/11/18 07/11/18 07:45 07:45 WBC 6.4 RBC 3.54 L Hgb 10.8 L Hct 33.3 L MCV 94.1 MCH 30.5 MCHC 32.4 RDW 14.9 H RDW Differential 49.2 H Plt Count 164 MPV 11.5 Blood Type O POSITIVE Antibody Screen NEGATIVE Medical Necessity - Tobacco Use Smoking Status: Former smoker Assessment/Plan Now has been pushing for 2 hours with limited descent of Twin A's vertex. I do not feel at this point additional pushing efforts would further result in descent to a position to be able to assist with a vacuum delivery. Given maternal fatigue and twin gestation cannot expect better outcome than by delivery. Procedures, risks, and postoperative expectations reviewed.
--- NOTE | 2018-07-11 21:55 | PCM.OPRPT ---
Report of Operation Date of Procedure: 07/11/18 Pre-Operative Diagnosis: Arrest of Descent in sSecond Stage of Labor with Twin Post-Operative Diagnosis: Same Surgery/Procedure Performed:: Primary Low Transverse Section Description of Surgical Findings:: Normal appearing uterus, ovaries, and fallopian tubes. Baby A in vertex occiput posterior position weighing [id number]. Twin B in vertex presentation wieghing 7lb3oz. Apgars were 9/9 for both babies. practical ministries professor: Maritza Junior Type of Anesthesia:: Epidural Anesthesiologist: Al Salinas Special Medications: none Specimen's removed: Placenta Drains: Larsen Estimated Blood Loss (mL): 800cc Fluids Replaced: 1500cc LR Description of Procedure: After risks, indications, and postoperative expectations were reviewed with Amalia and her decision was made to deliver the twins by section. She was taken to the OR where she was given two grams of Ancef for surgical prophylaxis. Her epidural was dosed and found to be adequate. She was prepped and draped in the supine position with a leftward tilt. A lasren catheter was in place. Once anesthesia was deemed adequate a Pfannensteil skin incision was made approximately two centimeters above the pubic symphysis. The underlying subcutaneous tissue was dissected down the the level of the fascia using sharp and blunt dissection. The fascia was then incised horizontally in the midline and this incision was extended bilaterally with the Wyman scissors. The upper portion of the facial defect was then grasped with two Sho clamps, elevated and the rectus muscles dissected off with sharp and blunt dissection. In a similar fashion the rectus [id number] were dissected off the lower fascial defect. The rectus muscles were then in the midline, the peritoneum identified and entered. The peritoneal defect was extended using blunt retraction. A bladder blade was made. The vesicouterine peritoneum was entered sharply and a bladder flap created. The bladder blade was replaced. A transverse incision was then made in the lower uterine segment. Baby A's head was then delivered without difficulty. The mouth and nares were suctioned with a bulb suction then the cord was clamped and cut. The baby was then handed to the waiting pediatric nurse for evaluation. The membranes surrounding Baby B were then ruptured and the baby delivered easily from the vertex presentation. The mouth and nares were suctioned then the cord clamped and cut. The baby was then handed off to the waiting pediatric nurse for evaluation. The placenta was then delivered manually. The uterus was exteriorized and cleared of all clot and membranes. The uterine incision was closed in two layers with #1 Vicryl suture. Where necessary figure of eight sutures of 0-Vicryl were used to effect excellent hemostasis. The posterior cul de sac and gutters were cleared of all clot and fluid. The uterus was then returned to the abdomen. Anthony was used over the uterine incision. The peritoneum was closed with 2-0 Vicryl. The rectus muscles reapproximated with 0-Vicryl sutures. The fascia was closed with a running stitch of #1 Stratofix suture. The subcutaneous tissue was closed with 2-0 Vicryl. The skin was closed with a subcuticular stitch of 4-0 Monocryl suture. Sponge, lap, needle and instrument counts were correct. Amalia was taken to the recovery room in stable condition. Grafts/Implants Used: none - Complications none - Admit VTE Documentation VTE Present on Admission: No VTE Mechan Device Prophylaxis: SCD's VTE Pharm Prophylaxis ordered?: No
[2018-07-11] MEDS: Sodium Citrate/Citric Acid 30 ML UDC PO (22:01)
[2018-07-11] MEDS: Cefazolin 2 GM in 0.9% Normal Saline 100 ML IV (22:07)
--- NOTE | 2018-07-11 22:08 | OP.PCM_ITS ---
Report of Operation Date of Procedure: 07/11/18 Pre-Operative Diagnosis: Arrest of Descent in sSecond Stage of Labor with Twin Post-Operative Diagnosis: Same Surgery/Procedure Performed:: Primary Low Transverse Section Description of Surgical Findings:: Normal appearing uterus, ovaries, and fallopian tubes. Baby A in vertex occiput posterior position weighing [id number]. Twin B in vertex presentation wieghing 7lb3oz. Apgars were 9/9 for both babies. skin diver: Maritza Junior Type of Anesthesia:: Epidural Anesthesiologist: Al Salinas Special Medications: none Specimen's removed: Placenta Drains: Larsen Estimated Blood Loss (mL): 800cc Fluids Replaced: 1500cc LR Description of Procedure: After risks, indications, and postoperative expectations were reviewed with Amalia and her decision was made to deliver the twins by section. She was taken to the OR where she was given two grams of Ancef for surgical prophylaxis. Her epidural was dosed and found to be adequate. She was prepped and draped in the supine position with a leftward tilt. A larsen catheter was in place. Once anesthesia was deemed adequate a Pfannensteil skin incision was made approximately two centimeters above the pubic symphysis. The underlying subcutaneous tissue was dissected down the the level of the fascia using sharp and blunt dissection. The fascia was then incised horizontally in the midline and this incision was extended bilaterally with the Wyman scissors. The upper portion of the facial defect was then grasped with two Sho clamps, elevated and the rectus muscles dissected off with sharp and blunt dissection. In a similar fashion the rectus [id number] were dissected off the lower fascial defect. The rectus muscles were then in the midline, the peritoneum identified and entered. The peritoneal defect was extended using blunt retraction. A bladder blade was made. The vesicouterine peritoneum was entered sharply and a bladder flap created. The bladder blade was replaced. A transverse incision was then made in the lower uterine segment. Baby A's head was then delivered without difficulty. The mouth and nares were suctioned with a bulb suction then the cord was clamped and cut. The baby was then handed to the waiting pediatric nurse for evaluation. The membranes surrounding Baby B were then ruptured and the baby delivered easily from the vertex presentation. The mouth and nares were suctioned then the cord clamped and cut. The baby was then handed off to the waiting pediatric nurse for evaluation. The placenta was then delivered manually. The uterus was exteriorized and cleared of all clot and membranes. The uterine incision was closed in two layers with #1 Vicryl suture. Where necessary figure of eight sutures of 0-Vicryl were used to effect excellent hemostasis. The posterior cul de sac and gutters were cleared of all clot and fluid. The uterus was then returned to the abdomen. Anthony was used over the uterine incision. The peritoneum was closed with 2-0 Vicryl. The rectus muscles reapproximated with 0-Vicryl sutures. The fascia was closed with a running stitch of #1 Stratofix suture. The subcutaneous tissue was closed with 2-0 Vicryl. The skin was closed with a subcuticular stitch of 4-0 Monocryl suture. Sponge, lap, needle and instrument counts were correct. Amalia was taken to the recovery room in stable condition. Grafts/Implants Used: none - Complications none - Admit VTE Documentation VTE Present on Admission: No VTE Mechan Device Prophylaxis: SCD's VTE Pharm Prophylaxis ordered?: No
[2018-07-11] MEDS: Oxytocin 30 units/NS 500 ml 30 UNITS/500 ML IV.SOLN 167 UNITS IV (22:28)
--- NOTE | 2018-07-11 23:06 | DCINST_ITS ---
Discharge Diet: No Restrictions Discharge Activity: Return to Normal Activity, May Shower Return to work on:: 09/11/18 May shower in (days): 0 May resume sexual activity in: 6 weeks Call your doctor if your incision/area has: Sudden Increased Bleeding, Increased Pain/ Swelling, Increased Redness, Foul Smelling Discharge, Swelling at the incision site Call your doctor if you observe: Fever of 101 or Higher, Inability to urinate, Inability to have a bowel movement, Using more than one pad per hour, Shortness of breath, Chest pain, Calf discomfort, Uncontrolled pain Remove Dressing in (days):: 3 Cleanse incision/area with: Soap & Water Additional Instructions: If you experience any of the following, contact your healthcare provider. * Bleeding that soaks a pad every hour for 2 hours * Fever 100.4 or higher * Unrelieved incision or abdominal pain * Swelling, redness, discharge or bleeding from your incision or episiotomy site * Your incision begins to separate * Problems urinating (including inability to urinate or burning while urinating). * Visual changes * Severe headache * Flu-like symptoms * Pain or redness in one of both of your breasts * Pain, warmth, tenderness or swelling in your legs, especially the calf area * Frequent nausea and vomiting * Symptoms of depression or anxiety If you experience any of the following, call 911 or go to the nearest Emergency Room. * Chest pain * Problems breathing * Seizure activity * Partial or complete paralysis of a body part, slurred speech, weakness or drooping of the face, or a sudden inability to walk or hold your balance Allergies/Adverse Reactions: Allergies No Known Allergies Allergy (Verified 07/04/18 10:22) Medications to take at Discharge Ferrous Gluconate 325 mg PO BIDCM 05/15/18 Pnv No.95/Ferrous Fum/Folic AC [ Formula Tablet] 1 each PO DAILY 05/15/18 Ibuprofen 600 mg PO 4X/DAY #30 tab 07/11/18 Oxycodone [Oxyir] 5 - 10 mg PO Q4H PRN PRN 7 Days #28 tab 07/11/18 The following prescriptions were given: Oxycodone [Oxyir] 5 - 10 mg PO Q4H PRN PRN 7 Days #28 tab PRN Reason: Mod-Severe Pain (-04/25) Ibuprofen 600 mg PO 4X/DAY #30 tab Follow-Up: Call to make an appointment with your doctor for an incision check in 1-2 weeks. You will also need a 6 week post- follow up appointment. Test results from this visit will be discussed in further detail at your follow- up appointment, if applicable. Please Follow Up With: Agustin Cole MD When: one week Primary Care Physician: Care Physician,No Primary [Primary Care Provider] - Proposed Discharge Date: 07/14/18
[2018-07-11 23:30] VITALS: BP 119/69; BP 124/79; PULSE 79; RESP 21; TEMP 36.3; O2SAT 96
[2018-07-11 23:45] VITALS: BP 117/73; BP 119/69; PULSE 86; RESP 25; O2SAT 95
[2018-07-12] VITALS (26 sets, daily range): BP systolic 95–122; BP diastolic 63–78; PULSE 69–96; RESP 16–19; TEMP 35.8–36.9; O2SAT 84–98
[2018-07-12] MEDS: Lactated Ringers 1,000 ML 100 ML IV ×2 (02:45→17:24)
[2018-07-12] MEDS: Cefazolin 1 GM/50 ML BAG IV ×2 (06:13→14:07)
[2018-07-12 06:33] LABS: Hematocrit 30.1 % (37-47); Hemoglobin 9.6 g/dl (12.0-15.0); Mean Corp Hgb Conc 31.9 g/gl (32-36); Mean Corpuscular Hgb 30.4 pg (27.0-32.0); Mean Corpuscular Volume 95.3 fL (81-99); Mean Platelet Vol. 10.8 fl (6.2-12.0); Platelet Count 173 K/mm3 (150-450); RBC Distribution Width SD 50.1 fl (35.1-43.9); Red Blood Count 3.16 M/mm3 (4.2-5.4); White Blood Count 10.2 K/mm3 (4.4-11.0)
[2018-07-12 06:41] LABS: Scan Indicated on CBC? Y/N NO
[2018-07-12] MEDS: Furosemide 20 MG/2 ML VIAL IV (08:04)
--- NOTE | 2018-07-12 08:07 | PCM.PN.OB ---
Subjective: Some incisional soreness. Overall pain well controlled. Tolerating PO. Hernandez in place. Objective: Afeb VSS. Hgb appropriate POD#1. Urine output low. - Physical Exam General: Alert, Oriented x3, Cooperative, No apparent distress Lungs: Clear to auscultation, Normal air movement Cardiovascular: Regular rate, Regular Rhythm Abdomen: Soft, Non Tender, Non-Distended, - - Fundus firm, incision dressing dry Extremities: Edema - 2+ LE Skin: No rashes Neurological: Neuro grossly intact Psych/Mental Status: Normal Affect Comment: Lochia light Vital Signs Temp Pulse Resp BP Pulse Ox 97.4 F L 69 16 116/64 96 07/12/18 06:00 07/12/18 06:00 07/12/18 06:00 07/12/18 06:00 07/12/18 06:00 Oxygen Delivery Method Room Air Weight: 219 lb 5.759 oz Body Mass Index (BMI) 36.5 Intake and Output for Last 24 Hours 07/10/18 07/11/18 07/12/18 23:59 23:59 23:59 Intake Total 5187.7 / 5187.7 550 / 550 Output Total 350 / 350 250 / 250 Balance 4837.7 / 4837.7 300 / 300 Laboratory Tests Past 24 Hrs 07/11/18 07/12/18 07:45 06:13 WBC 10.2 RBC 3.16 L Hgb 9.6 L Hct 30.1 L MCV 95.3 MCH 30.4 MCHC 31.9 L RDW 15.0 H RDW Differential 50.1 H Plt Count 173 MPV 10.8 Blood Type O POSITIVE Antibody Screen NEGATIVE Medical Necessity - Tobacco Use Smoking Status: Former smoker Assessment/Plan Doing well on POD#1 s/p primary C/S. Urine output low. Was low before delivery yesterday. Lasix 20mg IV given.
[2018-07-12 08:49] LABS: Pathology Specimen OB SEE PATHOLOGY REPORT
[2018-07-12] MEDS: Ferrous Gluconate 324 MG Tablet PO ×2 (08:57→17:02)
[2018-07-12] MEDS: Ketorolac 30 MG/ML Syringe IV ×3 (10:12→23:27)
[2018-07-12] MEDS: Prenatal Vits Tablet 1 TABLET PO (10:12)
[2018-07-12] MEDS: Acetaminophen 500 MG Tablet 1000 MG PO (21:15)
[2018-07-12] MEDS: 0.9% Saline Lock 10 ML Syringe IV (23:27)
[2018-07-13 02:20] VITALS: BP 114/74; PULSE 94; RESP 18; TEMP 36.1
[2018-07-13] MEDS: 0.9% Saline Lock 10 ML Syringe IV ×4 (05:21→23:38)
[2018-07-13] MEDS: Ketorolac 30 MG/ML Syringe IV ×4 (05:21→23:38)
[2018-07-13 08:00] VITALS: BP 122/77; PULSE 67; RESP 16; TEMP 36.6
[2018-07-13] MEDS: oxyCODONE 5 MG Tablet PO ×3 (08:13→17:48)
[2018-07-13] MEDS: Senna/Docusate Sodium 1 Tablet PO (08:14)
--- NOTE | 2018-07-13 08:20 | PCM.PN.OB ---
Subjective: Some incisional soreness. Bleeding light. Breast feeding. Objective: Afeb VSS Urine output appropriate. - Physical Exam General: Alert, Oriented x3, Cooperative, No apparent distress Lungs: Clear to auscultation, Normal air movement Cardiovascular: Regular rate, Regular Rhythm Abdomen: Soft, Non Tender, Non-Distended, - - Incision dressing dry. Extremities: Edema - 1+ LE Skin: No rashes Neurological: Neuro grossly intact Psych/Mental Status: Normal Affect Comment: Lochia light Vital Signs Temp Pulse Resp BP Pulse Ox 97.0 F L 94 18 114/74 96 07/13/18 02:20 07/13/18 02:20 07/13/18 02:20 07/13/18 02:20 07/12/18 23:00 Oxygen Delivery Method Room Air Weight: 219 lb 5.759 oz Body Mass Index (BMI) 36.5 Intake and Output for Last 24 Hours 07/11/18 07/12/18 07/13/18 23:59 23:59 23:59 Intake Total 5187.7 / 5187.7 3568 / 3568 410 / 410 Output Total 350 / 350 2049 / 2049 2500 / 2500 Balance 4837.7 / 4837.7 1518 / 1518 -2090 / -2090 Medical Necessity - Tobacco Use Smoking Status: Former smoker Assessment/Plan Doing well on POD#2. Continue routine PO care. Anticipate discharge home tomorrow.
[2018-07-13] MEDS: Ferrous Gluconate 324 MG Tablet PO ×2 (11:03→17:48)
[2018-07-13] MEDS: Prenatal Vits Tablet 1 TABLET PO (11:03)
[2018-07-13 14:00] VITALS: BP 119/74; PULSE 85; RESP 16; TEMP 36.6
[2018-07-13 20:41] VITALS: BP 127/74; PULSE 74; RESP 18; TEMP 36.6; O2SAT 94
[2018-07-14] VITALS (11 sets, daily range): BP systolic 118–163; BP diastolic 69–87; PULSE 55–72; RESP 16–20; TEMP 36.6–36.9; O2SAT 92–98
[2018-07-14] MEDS: oxyCODONE 5 MG Tablet PO (02:04)
[2018-07-14] MEDS: 0.9% Saline Lock 10 ML Syringe IV ×2 (05:56→18:52)
[2018-07-14] MEDS: Ketorolac 30 MG/ML Syringe IV (05:57)
[2018-07-14] MEDS: Ferrous Gluconate 324 MG Tablet PO ×2 (09:16→18:50)
--- NOTE | 2018-07-14 10:34 | PCM.PN.OB ---
Subjective: POD#3 Primary C/S at 37 + wk twin IUP. CPD States CRUZ starting in night time Gone with lying down and more severe with standing/sitting (6/10) Epidural for labor Doing well otherwise. No concerns voiced. Babies on way to nursery for hearing test. Objective: Standing at bedside with support person present. - Physical Exam General: Alert, Oriented x3, Cooperative, No apparent distress HEENT: Atraumatic Neck: Supple Abdomen: Soft, Non Tender Skin: Incision - Mepilex CDI. Psych/Mental Status: Normal Affect Vital Signs Temp Pulse Resp BP Pulse Ox 97.8 F 72 20 H 121/78 H 94 07/14/18 09:10 07/14/18 09:10 07/14/18 09:10 07/14/18 09:10 07/13/18 20:41 Oxygen Delivery Method Room Air Weight: 99.5 kg Body Mass Index (BMI) 36.5 Intake and Output for Last 24 Hours 07/12/18 07/13/18 07/14/18 23:59 23:59 23:59 Intake Total 3568 / 3568 410 / 410 Output Total 2049 / 2049 2500 / 2500 Balance 1518 / 1518 -2089 / -2089 Medical Necessity - Tobacco Use Smoking Status: Former smoker Assessment/Plan POD#3 Primary C/S for CPD Twin IUP Incision CDI. Healing well. Benign exam. CRUZ. CRUZ gone with lying down, and 6/10 with sitting/standing. Will consult anesthesia re spinal CRUZ, possible blood patch. Meanwhile: Fioricet, inc po fluids. Continue care
[2018-07-14] MEDS: Prenatal Vits Tablet 1 TABLET PO (12:27)
[2018-07-14] MEDS: Acetaminophen/Butalbital/Caffe 1 Tablet 2 TABLET PO ×2 (12:27→18:50)
[2018-07-14] MEDS: Lactated Ringers 1,000 ML 999 ML IV (18:52)
[2018-07-15 01:20] VITALS: BP 132/80; PULSE 74; RESP 16; TEMP 36.7; O2SAT 96
[2018-07-15] MEDS: Ibuprofen 600 MG Tablet PO ×2 (03:29→11:14)
[2018-07-15 08:52] VITALS: BP 133/80; PULSE 58; RESP 16; TEMP 36.3; O2SAT 98
--- NOTE | 2018-07-15 09:00 | PCM.PN.OB ---
Subjective: POD#4 Primary C/S CPD. Twins Feeling much better today after epidural blood patch for spinal CRUZ. Breast feeding twins. Nipples sore and working with latch for both, but doing well with this. She would like to go home today after shower. Objective: Sitting up in bed nursing baby. - Physical Exam General: Alert, Oriented x3, Cooperative, No apparent distress HEENT: Atraumatic Neck: Supple Neurological: Cranial nerves II-XII grossly intact Psych/Mental Status: Normal Affect Vital Signs Temp Pulse Resp BP Pulse Ox 97.4 F L 58 L 16 133/80 H 98 07/15/18 08:52 07/15/18 08:52 07/15/18 08:52 07/15/18 08:52 07/15/18 08:52 Oxygen Delivery Method Room Air Weight: 99.5 kg Body Mass Index (BMI) 36.5 Intake and Output for Last 24 Hours 07/13/07/14/18 07/15/18 23:59 23:59 23:59 Intake Total 410 / 410 Output Total 2500 / 2500 Balance -2089 / -2089 Medical Necessity - Tobacco Use Smoking Status: Former smoker Assessment/Plan POD#4 Primary C/S for CPD Twin IUP Incision CDI. Healing well. Benign exam. CRUZ. Spinal CRUZ. Gone now after epidural blood patch yesterday. Continue care. Dischg home today.
[2018-07-15 09:03] VITALS: BP 110/58; PULSE 58; RESP 16; TEMP 36.7; O2SAT 98
[2018-07-15] MEDS: Ferrous Gluconate 324 MG Tablet PO (11:14)
--- NOTE | 2018-07-17 10:48 | PCM.DC.SUM ---
Discharge Date and Diagnosis Date of Admission: 07/11/18 - 37 3/7 wk twin, induction Date of Discharge: 18 - POD#4 s/p primary C/S - Secondary Discharge Diagnosis Chronic Problems Twin gestation in third trimester (Chronic) Hospital Course and Treatment Operations: - - Induction of labor. Primary C Section for failure to descend Epidural blood patch for spinal headache. Summary of Care Provided: The patient is a 28 year old female with twin IUP, Vtx-Vtx. Presents for induction of labor at 37 3/7 wk EGA with concordant twins . Progressed to complete and pushing but without further descent for 2 hrs. Decision made for primary C/S. Delivered on 07/11/18 twins. Twin A 7# 3 oz Ap 9/9 Vtx, OP. and Twin B 7# 3 oz, Ap 9/9 Vtx. Procedure uncomplicated with EBL 800 cc. Preoperative Hgb 10.8 g/dl. Postop Hgb 9.6 g/dl. Pt afebrile and VSS and exam benign. Postop course stable until POD#3 when she experienced a severe CRUZ which was worse with standing, sitting and resolved with lying down. Epidural blood patch performed and relief of CRUZ noted. Discharged home in stable condition on POD#4 from primary C/S. - Physical Exam Vital Signs Temp Pulse Resp BP Pulse Ox 98.1 F 58 L 16 110/58 L 98 //18 09:03 07/15/18 09:03 18 09:03 18 09:03 18 09:03 Oxygen Delivery Method Room Air Weight: 99.5 kg Body Mass Index (BMI) 36.5 Discharge Diet: No Restrictions Discharge Activity: Return to Normal Activity, May Shower Return to work on:: 09/11/18 May shower in (days): 0 May resume sexual activity in: 6 weeks Call your doctor if your incision/area has: Sudden Increased Bleeding, Increased Pain/ Swelling, Increased Redness, Foul Smelling Discharge, Swelling at the incision site Call your doctor if you observe: Fever of 101 or Higher, Inability to urinate, Inability to have a bowel movement, Using more than one pad per hour, Shortness of breath, Chest pain, Calf discomfort, Uncontrolled pain Remove Dressing in (days):: 3 Cleanse incision/area with: Soap & Water Home Medications: Medications to take at Discharge Ferrous Gluconate 325 mg PO BIDCM 05/15/18 Pnv No.95/Ferrous Fum/Folic AC [ Formula Tablet] 1 each PO DAILY 05/15/18 Ibuprofen 600 mg PO 4X/DAY #30 tab 07/11/18 Oxycodone [Oxyir] 5 - 10 mg PO Q4H PRN PRN 7 Days #28 tab 07/11/18 Following Prescrptions Were Given to Patient: Oxycodone [Oxyir] 5 - 10 mg PO Q4H PRN PRN 7 Days #28 tab PRN Reason: Mod-Severe Pain (4-04/25) Ibuprofen 600 mg PO 4X/DAY #30 tab Primary Care Physician: Care Physician,No Primary [Primary Care Provider] - Please Follow Up With: Agustin Cole MD When: one week Medical Necessity - Tobacco Use Smoking Status: Former smoker Meaningful Use Info Meaningful Use Diagnoses (Choose all that apply): None applicable
--- NOTE | 2018-07-19 14:50 | CASEMGMT ---
Social Work Labor and Delivery Unit Received message from Jing PANDEY indicating that patient may benefit from a phone call, check on mood, as patient's sister had expressed concern that patient would not speak up if feeling down, though patient does have plenty of family support available. Called patient at home and let patient that following up with patient to check on how doing at home since leaving the hospital. Patient reports things are going well, that does feel overwhelmed at times with two babies, but overall feeling good. Patient reports mood is good and working on breast feeding twin girls. Patient reports will be coming in to see tomorrow for outpatient consult. Offered to mail patient resources for new moms and such, but patient denies needs and to know where to turn. No voiced concerns over the phone by patient. Let patient know that if something changes can always call in to talk to staff for direction on resources available. -HANS [place], OWNER/OPERATOR
== END 2018-07-15 12:40 | disposition home or self-care (01) | DRG 788 ==
PROVIDERS: Admitting Provider Obstetrics & Gynecology; Referring Provider Obstetrics & Gynecology; Visit Provider Obstetrics & Gynecology
DX: O30.003 Twin pregnancy, unspecified number of placenta and unspecified number of amniotic sacs, third trimester (principal); Z3A.37 37 weeks gestation of pregnancy; Z37.2 Twins, both liveborn; O89.4 Spinal and epidural anesthesia-induced headache during the puerperium; Z87.891 Personal history of nicotine dependence; O62.1 Secondary uterine inertia
CPT/HCPCS: 59025; 59050; 85027; 86850; 86900; 88307; 99218; J7120; 90686; A4216; G0378; J1940; J2405

== ENCOUNTER → 2019-02-08 16:01 | Outpatient (CLI) | payer BC, SELFPAY ==
[2019-02-08 17:45] LABS: hCG Titer Quant., Serum < 1 mIU/mL (1-3)
[2019-02-08 17:47] LABS: Progesterone Level 0.38 ng/mL (See Comment)
== END ==
PROVIDERS: Visit Provider Obstetrics & Gynecology
DX: Z30.014 Encounter for initial prescription of intrauterine contraceptive device (principal)
CPT/HCPCS: 36415; 84144; 84702

== ENCOUNTER → 2019-02-11 17:26 | Outpatient (CLI) | payer BC, SELFPAY ==
[2019-02-11 21:57] LABS: Chlamydia Trachomatis by PCR Negative (Negative); Neisserai gonorrhoeae by PCR Negative (Negative); Probe Check PASS; Sample Adequacy Control PASS; Specimen Processing Control PASS
== END ==
PROVIDERS: Referring Provider Obstetrics & Gynecology; Visit Provider Obstetrics & Gynecology
DX: Z11.3 Encounter for screening for infections with a predominantly sexual mode of transmission (principal)
CPT/HCPCS: 87491; 87591